=== PATIENT | male | born 1965 | race Caucasian/White ===

== ENCOUNTER 2019-08-01 14:53 | Emergency (ER) | payer OTHER ==
[~2019-08-01] VITALS: Ht 182.9 cm; Wt 67.8 kg
[2019-08-01] MEDS ORDERED: HYDR-4517 PO (15:17)
[2019-08-01] MEDS ORDERED: SERT-141 PO (15:17)
[2019-08-01] MEDS ORDERED: ATEN25TA PO (15:17)
[2019-08-01] MEDS ORDERED: FENT1DIS14 TOP (15:17)
[2019-08-01] MEDS ORDERED: SANC3.1D TOP (15:17)
[2019-08-01] MEDS ORDERED: PANT40TA3 PO (15:17)
[2019-08-01] MEDS ORDERED: KETOROLAC 30 MG/ML VIAL (J1885) IV ONE (15:30)
[2019-08-01] MEDS ORDERED: NS 1,000 ML IV ONE (15:30)
[2019-08-01] MEDS ORDERED: PANTOPRAZOLE 40MG INJ (PROTONIX) (C9113) IV ONE (15:30)
[2019-08-01] MEDS ORDERED: PROMETHAZINE INJ 25 MG/ML VIAL (J2550) IV ONE (15:30)
[2019-08-01 15:43] LABS: BASO # 0.1 10^3/uL (0.0-0.2); BASO % 0.8 % (0.0-1.0); EOS # 0.1 10^3/uL (0.0-0.5); EOS % 0.7 % (0.0-3.0); HEMOGLOBIN 11.9 g/dl (13.5-17.5); LYMPH # 0.8 10^3/uL (1.5-5.0); LYMPH % 6.9 % (24.0-44.0); MEAN CORPUSCULAR HEMOGLOBIN 27.6 pg (27.0-33.0); MEAN CORPUSCULAR HGB CONC 29.8 g/dl (32.0-36.5); MEAN CORPUSCULAR VOLUME 92.8 fl (80.0-96.0); MONO # 0.8 10^3/uL (0.0-0.8); MONO % 6.3 % (0.0-5.0); NEUTROPHILS # 9.7 10^3/uL (1.5-8.5); NEUTROPHILS % 80.9 % (36.0-66.0); PLATELET COUNT, AUTOMATED 336 10^3/uL (150-450); RED BLOOD COUNT 4.31 10^6/uL (4.30-6.10)
[2019-08-01 15:59] LABS: INR 1.03; PROTHROMBIN TIME 13.2 SECONDS (11.8-14.0)
[2019-08-01] MEDS ORDERED: MORPHINE 4 MG/ML 1ML VIAL/SYRINGE (J2270) IV ONE (16:15)
[2019-08-01 16:16] LABS: ALBUMIN 2.8 GM/DL (3.2-5.2); ALT/SGPT 20 U/L (12-78); BILIRUBIN,DIRECT < 0.1 MG/DL (0.0-0.2); BILIRUBIN,TOTAL 0.2 MG/DL (0.2-1.0); BLOOD UREA NITROGEN 16 MG/DL (7-18); CALCIUM LEVEL 8.7 MG/DL (8.5-10.1); CARBON DIOXIDE LEVEL 30 MEQ/L (21-32); CHLORIDE LEVEL 103 MEQ/L (98-107); CREATININE FOR GFR 0.59 MG/DL (0.70-1.30); GLOMERULAR FILTRATION RATE > 60.0 (>56); GLUCOSE, FASTING 133 MG/DL (70-100); LIPASE 40 U/L (73-393); POTASSIUM SERUM 4.2 MEQ/L (3.5-5.1); SODIUM LEVEL 138 MEQ/L (136-145); TOTAL PROTEIN 6.1 GM/DL (6.4-8.2)
[2019-08-01] MEDS ORDERED: ISOVUE-370 76% 100ML VIAL (Q9967) As Ordered ONE (16:33)
--- NOTE | 2019-08-01 18:04 | REPVR ---
PROCEDURE INFORMATION: Exam: CT Abdomen And Pelvis With Contrast Exam date and time: 08/01/2019 5:20 PM Age: 53 years old Clinical indication: Abdominal pain; Generalized; Additional info: Abd pain TECHNIQUE: Imaging protocol: Computed tomography of the abdomen and pelvis with intravenous contrast. Radiation optimization: All CT scans at this facility use at least one of these dose optimization techniques: automated exposure control; mA and/or kV adjustment per patient size (includes targeted exams where dose is matched to clinical indication); or iterative reconstruction. Contrast material: ISOVUE 370; Contrast volume: 100 ml; Contrast route: IV; COMPARISON: No relevant prior studies available. FINDINGS: Lungs: Clear appearing lungs. Liver: Irregular enhancement of the left lobe of the liver may be secondary to irregular fatty infiltration. Metastasis to the left lobe of the liver is another consideration. Gallbladder and bile ducts: Normal gallbladder. Normal common bile duct. Pancreas: Normal pancreas. Punctate calcifications throughout the pancreas. Spleen: Normal spleen. Adrenals: Normal adrenal glands. Kidneys and ureters: There is opacification of both kidneys. Punctate stone lower pole left kidney. There is no evidence of hydronephrosis. Stomach and bowel: There is a metallic stent within the lower esophagus and extending into the upper stomach. There is a large amount of secretions and food material within the stomach and a large air-fluid level. There is around 5 cm mass contiguous with the posterior rectum and extending to the anus. Appendix: Normal appearing appendix. Intraperitoneal space: There is no evidence of pneumoperitoneum. There is no evidence of fluid within the abdomen or pelvis. Vasculature: There is opacification of the aorta. There is opacification of the SMV and the SMA. There is calcification of the aorta consistent with atherosclerotic changes. Lymph nodes: There is lymphadenopathy along the course of the aorta. There is a 2 cm retrocrural lymph node. The lymphadenopathy along the aorta measures 1 cm to as large as 3 cm. There is also soft tissue density/lymphadenopathy encasing the celiac artery and inseparable from the junction of the stomach and liver margin. Lymphadenopathy contiguous with the inferior vena cava and dahlia of the diaphragm. Lymphadenopathy encases the renal arteries. Bladder: Normal urinary bladder. Reproductive: Moderate enlargement of the prostate. Bones/joints: There is kyphosis of the lower thoracic spine and also osteophyte formation of the thoracic and lumbar spine. There is narrowing of the central canal secondary to the kyphosis and also posterior osteophyte formation lower thoracic region IMPRESSION: 1. There is a prominent stent from the mid esophagus to the upper stomach. There is diffuse thickening of the esophagus. Extensive soft tissue and lymphadenopathy encasing the celiac artery and inseparable from the diaphragm and upper stomach. This is consistent with neoplasm and lymphadenopathy. 2. Extensive lymphadenopathy following the aorta and within the diaphragmatic dahlia on the right. 3. 5 cm oval mass between the rectum and the left levator ani muscles. This mass is inseparable from the muscular groups and consistent with neoplasm. Electronically signed by: Cruz Tolentino On 08/01/2019 18:06:23 PM
[2019-08-01] MEDS ORDERED: SIME180C PO (18:37)
[2019-08-01 18:55] VITALS: BP 100/63
[2019-08-02] MEDS ORDERED: LIDO2.5C15 TOP (16:37)
[2019-08-05] MEDS ORDERED: SIME180C PO (13:12)
== END 2019-08-01 18:58 | disposition home or self-care (01) ==
LOC: M ED 14:53
DX: R10.9 Unspecified abdominal pain (principal); R59.9 Enlarged lymph nodes, unspecified; R93.2 Abnormal findings on diagnostic imaging of liver and biliary tract; R19.00 Intra-abdominal and pelvic swelling, mass and lump, unspecified site; Z96.89 Presence of other specified functional implants; C15.9 Malignant neoplasm of esophagus, unspecified; G89.29 Other chronic pain; F17.200 Nicotine dependence, unspecified, uncomplicated; Z79.899 Other long term (current) drug therapy; Z88.6 Allergy status to analgesic agent
CPT/HCPCS: 74177; 80048; 80076; 81001; 83690; 85025; 85610; 96361; 96374; 96375; 99284; C9113; J1885; J2270; Q9967

== ENCOUNTER 2019-08-02 12:07 | Observation (INO) | payer OTHER ==
[~2019-08-02] VITALS: Ht 182.9 cm; Wt 69.5 kg
[~2019-08-02 12:07] MED LIST: ATEN25TA PO; FENT1DIS14 TOP; HYDR-4517 PO; PANT40TA3 PO; SANC3.1D TOP; SERT-141 PO; SIME180C PO
[2019-08-02 13:20] LABS: BASO # 0.1 10^3/uL (0.0-0.2); BASO % 0.5 % (0.0-1.0); EOS # 0.1 10^3/uL (0.0-0.5); EOS % 0.5 % (0.0-3.0); HEMATOCRIT 38.7 % (42.0-52.0); HEMOGLOBIN 11.5 g/dl (13.5-17.5); LYMPH # 0.7 10^3/uL (1.5-5.0); LYMPH % 5.8 % (24.0-44.0); MEAN CORPUSCULAR HEMOGLOBIN 27.9 pg (27.0-33.0); MEAN CORPUSCULAR HGB CONC 29.7 g/dl (32.0-36.5); MEAN CORPUSCULAR VOLUME 93.9 fl (80.0-96.0); MONO % 7.8 % (0.0-5.0); NEUTROPHILS # 10.4 10^3/uL (1.5-8.5); NEUTROPHILS % 80.8 % (36.0-66.0); PLATELET COUNT, AUTOMATED 314 10^3/uL (150-450); RED BLOOD COUNT 4.12 10^6/uL (4.30-6.10); WHITE BLOOD COUNT 12.9 10^3/uL (4.0-10.0)
[2019-08-02] MEDS ORDERED: METOCLOPRAMIDE INJ 10MG/2ML VIAL (J2765) IV ONE (13:30)
[2019-08-02] MEDS ORDERED: NS 1,000 ML IV ONE (13:30)
[2019-08-02] MEDS: MORPHINE 4 MG/ML 1ML VIAL/SYRINGE (J2270) IV PRN ×3 (13:37→18:46)
[2019-08-02 13:39] LABS: INR 1.03; PROTHROMBIN TIME 13.2 SECONDS (11.8-14.0)
[2019-08-02 13:40] LABS: PARTIAL THROMBOPLASTIN TIME 30.5 SECONDS (25.0-38.4)
[2019-08-02 13:46] LABS: ALBUMIN 2.8 GM/DL (3.2-5.2); ALT/SGPT 18 U/L (12-78); AMYLASE 23 U/L (25-115); BILIRUBIN,DIRECT 0.1 MG/DL (0.0-0.2); BILIRUBIN,TOTAL 0.2 MG/DL (0.2-1.0); BLOOD UREA NITROGEN 16 MG/DL (7-18); CALCIUM LEVEL 8.5 MG/DL (8.5-10.1); CARBON DIOXIDE LEVEL 29 MEQ/L (21-32); CHLORIDE LEVEL 108 MEQ/L (98-107); CREATININE FOR GFR 0.49 MG/DL (0.70-1.30); GLOMERULAR FILTRATION RATE > 60.0 (>56); GLUCOSE, FASTING 81 MG/DL (70-100); IRON (FE) 26 UG/DL (65-175); LIPASE 59 U/L (73-393); PERCENT SATURATION 10.2 % (19.7-50.0); POTASSIUM SERUM 4.1 MEQ/L (3.5-5.1); SODIUM LEVEL 142 MEQ/L (136-145); TOTAL IRON BINDING CAPACITY 254 UG/DL (250-450); TOTAL PROTEIN 5.9 GM/DL (6.4-8.2)
[2019-08-02] MEDS ORDERED: MORPHINE 4 MG/ML 1ML VIAL/SYRINGE (J2270) IV ONE (16:00)
[2019-08-02] MEDS ORDERED: LIDO2.5C15 TOP (16:37)
[2019-08-02] MEDS ORDERED: ACETAMINOPHEN TAB 650MG DOSE (2X325MG) PO PRN (17:00)
[2019-08-02] MEDS ORDERED: ONDANSETRON 4MG/2ML VIAL (J2405) IV PRN (17:00)
[2019-08-02] MEDS ORDERED: MAALOX 30 ML SUSP *UDC PO PRN (17:00)
[2019-08-02] MEDS ORDERED: MOM 30ML SUSPENSION UDC PO PRN (17:00)
--- NOTE | 2019-08-02 17:58 | HPE ---
DATE OF ADMISSION: 08/02/2019 TIME: 04:30 p.m. CHIEF COMPLAINT: Abdominal pain. HISTORY OF PRESENT ILLNESS: Mr. Fuller is a 53-year-old gentleman who unfortunately has a history of esophageal carcinoma. He is status post esophageal stenting in the past times two. He is presently on Keytruda immunomodulation therapy which he gets every three weeks. His last dose was approximately four weeks ago. The patient presents to the hospital today for the second time in two days for intractable abdominal pain. He was last seen at [facility] Emergency Room yesterday on 08/01/2019. At that time, he underwent a CT scan of his abdomen and pelvis which showed that in addition to his chronic esophageal carcinoma with associated periaortic lymphadenopathy he also had a rectal mass. His pain was controlled in the emergency room and he was subsequently discharged home. He presented today with complaints of 10/10 sharp abdominal pain with intractable nausea and inability to eat anything at home. Thus far in the emergency room (ER), his laboratories have been relatively stable. Repeat lipase was found to be normal. He has a mildly elevated white count of 12.9, normal coagulations as well as electrolytes. He has not undergone any further imaging as he had a CT scan done yesterday. His ER course has consisted of receiving morphine 4 mg IV times three as well as Reglan and a liter of normal saline without significant improvement in his symptoms. Because of his uncontrolled pain, he will be admitted to the hospitalist service for further treatment and evaluation. He presently sees Dr. Carmona at the [facility] and was recently placed on fentanyl 25 mcg every 72 hours several days ago. He also takes [place] 10/325 mg about twice a day. Despite these medications, he has no relief whatsoever. ALLERGIES: His allergies are no known drug allergies. MEDICATIONS: His current home medications are the following: - atenolol 25 mg daily - fentanyl 25 mcg every 72 hours - Sancuso transdermal patch weekly applied on Saturdays - Seminole one tablet every 12 hours as needed for pain - lidocaine prilocaine cream - Protonix 40 mg twice a day - sertraline 50 mg in the evening PAST MEDICAL HISTORY: Notable for stage III esophageal carcinoma diagnosed in June of 2018. He has undergone radiation as well as chemotherapy. He is currently on Keytruda every three weeks. He is status post esophageal stent in October which subsequently occluded and needed to be removed and replaced in April of 2019. He has history of a Mediport placement in his anterior chest wall. He has a history of nonobstructing left kidney stone. He has history of hypertension. He has history of severe protein calorie malnutrition as well as chronic malignant pain syndrome. H PAST SURGICAL HISTORY: Notable for percutaneous endoscopic gastrostomy (PEG) tube placement in July of 2018 with subsequent explantation in December of 2018 secondary to balloon rupture and not frequent use. He has a history of exploratory laparotomy. SOCIAL HISTORY: The patient is , resides at home with his . He still smokes about less than a pack per day. He does not use alcohol or drugs. He lists himself as a full code. His is his surrogate medical decision maker. FAMILY HISTORY: Notable for his father who from the complications of prostate as well as bladder cancer. Mother when he was age 13 from a pulmonary embolism. REVIEW OF SYSTEMS: Positive for chronic malignant abdominal pain syndrome as well as greater than 25-pound weight loss since February of 2019 in addition to constipation and diarrhea at times. He denies having any hematemesis, melena, or hematochezia. I did inform him that the CAT scan did show that he has a new rectal mass. He was unaware that he had any lesions in that area. RELEVANT LABORATORY DATA: Sodium is 142, potassium 4.1, chloride 108, bicarbonate 29, anion gap is 5, BUN is 16, creatinine 0.49, glucose 81, calcium is 8.5, iron is 26, TIBC is 254, total bilirubin 0.2, direct bilirubin 0.1, AST is 12, ALT is 18, alkaline phosphatase is 89, lipase is 69, amylase is 23, INR is 1.03, PT is 13.2, PTT is 30.5. White count is 12.9, hemoglobin 11.5, hematocrit 38.7, and platelet count is 314,000. CT of the abdomen and pelvis done on 08/01/2019 in brief summary indicated the following: There is a prominent stent from the mid esophagus to the upper stomach. There is diffuse thickening of the esophagus, extensive soft tissue lymphadenopathy encasing the celiac artery and inseparable from the diaphragm and upper stomach. This is consistent with neoplasm and lymphadenopathy. Extensive lymphadenopathy involving the aortic and within the diaphragmatic dahlia on the right. A 5 cm oval mass between the rectum and the left levator ani muscles. This mass is inseparable from the muscular groups and consistent with neoplasm. PHYSICAL EXAMINATION: Mr. Fuller's temperature is 98.4. His pulse is 92 and regular, respirations are 18, blood pressure is 108/78, oxygen saturation on room air is 100%. In general, Mr. Fuller is in moderate to severe pain associated with his abdominal pain. He is complaining 10/10 pain. He is a cachectic-appearing gentleman who is not exhibiting any breathing difficulties. His skin is warm to touch. No visible rash, bruising, or jaundicing. His head is atraumatic. He has his eyeglasses in place. He is not exhibiting any scleral icterus or conjunctival pallor. Oropharynx is clear. Oral mucosa is moist. His neck is supple. No palpable lymphadenopathy. He has kyphosis. Lungs sounds are appreciated bilaterally. He has symmetrical chest wall expansion. Heart is S1, S2. No audible murmurs or gallops. Abdomen is soft, scaphoid in appearance. It is tender to touch. It is without any distension and no palpable masses. His extremities are without any cyanosis, clubbing or edema. Capillary refill is less than five seconds. He has palpable dorsalis pedis pulses. IMPRESSION: 1. Intractable abdominal pain secondary to chronic malignant abdominal pain syndrome. The patient will be admitted to an observation status. I am going to consult palliative care to help in assisting with his pain control. I am going to increase his fentanyl from 25 mcg to 50 mcg. In addition, we will add IV morphine every four hours for breakthrough pain. Can consider resuming Seminole orally if his pain is improved with the fentanyl. Can consider also if he is a candidate for maybe a celiac plexus block to deal with his pain if that is possible, which from viewing his CAT scan is unlikely with the lymphadenopathy and tumor encasing that area. 2. Severe protein calorie malnutrition. The patient will have dietary to see him to make recommendations for him. 3. Hypertension. We will resume his atenolol. 4. Anemia of chronic disease, likely associated with his malignancy. We will monitor his complete blood count (CBC) daily and transfuse for a hemoglobin less than 7 or symptomatic anemia. 5. Rectal mass which appears to be a new finding on CAT scan done yesterday in the emergency department (ED). We will get in touch with his oncologist in the morning. I will leave it to his day team hospitalist who will be assuming care from me tomorrow to contact their office and obtain records and discuss that finding with his oncologist. The patient, at this point, is fed up with his oncology group in [place] and is willing to switch to oncology here. Therefore, an appointment should be made for him prior to discharge. 6. The patient will be placed on sequential compression devices (SCDs) as well as Lovenox for deep vein thrombosis (DVT) prophylaxis.
[2019-08-02] MEDS: fentaNYL 50 MCG/HR PATCH TOP ONE ×2 (21:02→21:08)
[2019-08-02] MEDS: DOCUSATE SODIUM 100 MG CAP PO SCH (21:03)
[2019-08-02] MEDS: SERTRALINE HCL 50 MG TAB PO SCH (21:03)
[2019-08-02] MEDS: PANTOPRAZOLE 40MG TAB (PROTONIX) PO SCH (21:03)
[2019-08-02 22:00] VITALS: BP 105/66
[2019-08-03 02:00] VITALS: BP 123/71
[2019-08-03 06:00] VITALS: BP 123/71
[2019-08-03 06:59] LABS: HEMATOCRIT 36.5 % (42.0-52.0); HEMOGLOBIN 10.8 g/dl (13.5-17.5); MEAN CORPUSCULAR HEMOGLOBIN 27.7 pg (27.0-33.0); MEAN CORPUSCULAR HGB CONC 29.6 g/dl (32.0-36.5); MEAN CORPUSCULAR VOLUME 93.6 fl (80.0-96.0); PLATELET COUNT, AUTOMATED 275 10^3/uL (150-450); WHITE BLOOD COUNT 15.7 10^3/uL (4.0-10.0)
[2019-08-03 07:30] LABS: ALBUMIN 2.5 GM/DL (3.2-5.2); ALT/SGPT 17 U/L (12-78); BILIRUBIN,TOTAL 0.2 MG/DL (0.2-1.0); BLOOD UREA NITROGEN 9 MG/DL (7-18); CARBON DIOXIDE LEVEL 29 MEQ/L (21-32); CHLORIDE LEVEL 105 MEQ/L (98-107); GLOMERULAR FILTRATION RATE > 60.0 (>56); GLUCOSE, FASTING 125 MG/DL (70-100); POTASSIUM SERUM 4.1 MEQ/L (3.5-5.1); SODIUM LEVEL 139 MEQ/L (136-145); TOTAL PROTEIN 6.3 GM/DL (6.4-8.2)
[2019-08-03] MEDS: DOCUSATE SODIUM 100 MG CAP PO SCH ×2 (09:00→21:58)
[2019-08-03] MEDS: ENOXAPARIN 40 MG/0.4 ML SYRINGE (J1650) SC SCH (09:00)
[2019-08-03] MEDS: PANTOPRAZOLE 40MG TAB (PROTONIX) PO SCH ×2 (09:03→21:58)
[2019-08-03] MEDS: atenoloL 25 MG TAB PO SCH (09:03)
--- NOTE | 2019-08-03 13:01 | IPNPDOC ---
Subjective Date Seen The patient was seen on 08/03/19. Subjective Chief Complaint/HPI Patient pain has much resolved with Duragesic but he still wants to see [facility] oncology was discharged as per patient, he is unable to ambulate more than bathroom and is extremely tired and fatigued and he is unable to go home secondary to his mobility status General: Denies: ROS Unobtainable, Chills, Night Sweats, Fatigue, Malaise, Normal Appetite, Other Symptoms Constitutional: Denies: Chills, Fever, Malaise, Night Sweats, Weakness, Fatigue, Weight Loss, Lethargy, Other Skin: Denies: Rash, Lesions, Jaundice, Bruising, Itching, Dry, Breakdown, Nail Changes, Other Pulmonary: Denies: Dyspnea, Cough, Pleuritic Chest Pain, Other Symptoms Cardiovascular: Denies: Chest Pain, Palpitations, Orthopnea, Paroxysmal Noc. Dyspnea, Edema, Lt Headedness, Other Symptoms Gastrointestinal: Denies: Nausea, Vomiting, Abdominal Pain, Diarrhea, Constipation, Melena, Hematochezia, Other Symptoms Musculoskeletal: Denies: Neck Pain, Back Pain, Shoulder Pain, Arm Pain, Hand Pain, Leg Pain, Foot Pain, Joint Pain, Muscle Pain, Spasms, Other Symptoms Neurological: Denies: Weakness, Numbness, Incoordination, Change in speech, Confusion, Seizures, Other Symptoms Objective Physical Examination General Exam: Positive: Alert Eye Exam: Positive: PERRLA, Conjunctiva & lids normal ENT Exam: Positive: Atraumatic, Mucous membr. moist/pink Chest Exam: Positive: Clear to auscultation, Normal air movement Heart Exam: Positive: Rate Normal, Normal S1, Normal S2 Abdomen Exam: Positive: Normal bowel sounds, Soft, Tenderness Extremity Exam: Positive: Normal pulses Skin Exam: Positive: Nl turgor and temperature Neuro Exam: Positive: Strength at 5/5 X4 ext, Cranial Nerves 3-12 NL Assessment /Plan Problems (1) Intractable abdominal pain Status: Acute Problem Text: Secondary to advanced carcinoma of esophagus Patient received the chemotherapy at [facility], but he receives to change to [facility] oncology I tried to explain patient about his advanced stage of cancer and possible poor prognosis, but patient is insistent that he is salvageable So far is responding very well to Duragesic but he unable to ambulate more than bed to bathroom and as per patient, his is unable to take care of him at home Will speak with the social work and case management regarding possibly placing him him in the rehabilitation (2) Carcinoma of esophagus Status: Chronic Problem Text: Carcinoma of esophagus status post esophageal stent Patient had received chemotherapy at [facility] Further follow-up outpatient with oncologist of his choice (3) Protein-calorie malnutrition, severe Status: Acute Problem Text: , Most likely secondary to advanced carcinoma and esophageal stent Dietary consult will be called Nutritional supplements as tolerated (4) Rectal mass Status: Acute Problem Text: Rectal mass was explained to patient. He understands very well Further workup will be recommended as an outpatient with oncology Plan/VTE VTE Prophylaxis Ordered?: Yes VS, I&O, 24H, Fishbone Vital Signs/I&O Vital Signs Date Time Temp Pulse Resp B/P (MAP) Pulse Ox O2 Delivery O2 Flow Rate FiO2 08/03/19 09:03 102 130/78 08/03/19 06:00 98.3 18 98 Room Air l I&O- Last 24 Hours up to 6 AM 08/03/19 06:00 Intake Total 1450 ml Output Total 0 ml Balance 1450 ml Laboratory Data 24H LABS Laboratory Tests 2 08/02/19 13:05: Immature Granulocyte % (Auto) 4.6H, Neutrophils (%) (Auto) 80.8H, Lymphocytes (%) (Auto) 5.8L, Monocytes (%) (Auto) 7.8H, Eosinophils (%) (Auto) 0.5, Basophils (%) (Auto) 0.5, Neutrophils # (Auto) 10.4H, Lymphocytes # (Auto) 0.7L, Monocytes # (Auto) 1.0H, Eosinophils # (Auto) 0.1, Basophils # (Auto) 0.1, Nucleated Red Blood Cells % (auto) 0.0, Prothrombin Time 13.2, Prothromb Time International Ratio 1.03, Activated Partial Thromboplast Time 30.5, Anion Gap 5L, Glomerular Filtration Rate > 60.0, Calcium Level 8.5, Iron Level 26L, Total Iron Binding Capacity 254, Transferrin % Saturation 10.2L, Total Bilirubin 0.2, Direct Bilirubin 0.1, Aspartate Amino Transf (AST/SGOT) 12, Alanine Aminotransferase (ALT/SGPT) 18, Alkaline Phosphatase 89, Total Protein 5.9L, Albumin 2.8L, Albumin/Globulin Ratio 0.90L, Amylase Level 23L, Lipase 59L 08/03/19 06:44: Nucleated Red Blood Cells % (auto) 0.0, Anion Gap 5L, Glomerular Filtration Rate > 60.0, Calcium Level 8.0L, Total Bilirubin 0.2, Aspartate Amino Transf (AST/SGOT) 11, Alanine Aminotransferase (ALT/SGPT) 17, Alkaline Phosphatase 86, Total Protein 6.3L, Albumin 2.5L, Albumin/Globulin Ratio 0.66L CBC/BMP Laboratory Tests 08/02/19 13:05 08/03/19 06:44 WATSON VIVEROS MD Aug 03, 2019 13:01
[2019-08-03] MEDS: MORPHINE 4 MG/ML 1ML VIAL/SYRINGE (J2270) IV PRN ×2 (13:13→18:27)
[2019-08-03 14:07] VITALS: BP 102/58
[2019-08-03] MEDS: KETOROLAC 30 MG/ML VIAL (J1885) IV PRN (19:32)
[2019-08-03 20:29] VITALS: BP 100/57
[2019-08-03] MEDS: SERTRALINE HCL 50 MG TAB PO SCH (21:58)
[2019-08-04 02:00] VITALS: BP 106/60
[2019-08-04 05:23] VITALS: BP 114/72
[2019-08-04 06:35] LABS: BASO # 0.1 10^3/uL (0.0-0.2); BASO % 0.7 % (0.0-1.0); EOS # 0.1 10^3/uL (0.0-0.5); EOS % 0.8 % (0.0-3.0); HEMATOCRIT 36.5 % (42.0-52.0); HEMOGLOBIN 10.7 g/dl (13.5-17.5); LYMPH # 0.6 10^3/uL (1.5-5.0); MEAN CORPUSCULAR HEMOGLOBIN 27.6 pg (27.0-33.0); MEAN CORPUSCULAR HGB CONC 29.3 g/dl (32.0-36.5); MEAN CORPUSCULAR VOLUME 94.3 fl (80.0-96.0); MONO # 1.2 10^3/uL (0.0-0.8); MONO % 9.2 % (0.0-5.0); NEUTROPHILS # 10.2 10^3/uL (1.5-8.5); NEUTROPHILS % 79.7 % (36.0-66.0); PLATELET COUNT, AUTOMATED 283 10^3/uL (150-450); RED BLOOD COUNT 3.87 10^6/uL (4.30-6.10); WHITE BLOOD COUNT 12.8 10^3/uL (4.0-10.0)
[2019-08-04 06:58] LABS: ALBUMIN 2.5 GM/DL (3.2-5.2); ALT/SGPT 18 U/L (12-78); BILIRUBIN,TOTAL 0.2 MG/DL (0.2-1.0); BLOOD UREA NITROGEN 12 MG/DL (7-18); CALCIUM LEVEL 8.1 MG/DL (8.5-10.1); CARBON DIOXIDE LEVEL 25 MEQ/L (21-32); CHLORIDE LEVEL 108 MEQ/L (98-107); GLOMERULAR FILTRATION RATE > 60.0 (>56); GLUCOSE, FASTING 99 MG/DL (70-100); POTASSIUM SERUM 4.2 MEQ/L (3.5-5.1); SODIUM LEVEL 139 MEQ/L (136-145)
[2019-08-04 08:18] VITALS: BP 114/72
[2019-08-04] MEDS: PANTOPRAZOLE 40MG TAB (PROTONIX) PO SCH (08:18)
[2019-08-04] MEDS: DOCUSATE SODIUM 100 MG CAP PO SCH (08:18)
[2019-08-04] MEDS: KETOROLAC 30 MG/ML VIAL (J1885) IV PRN ×2 (08:18→15:14)
[2019-08-04] MEDS: atenoloL 25 MG TAB PO SCH (08:18)
[2019-08-04] MEDS: ENOXAPARIN 40 MG/0.4 ML SYRINGE (J1650) SC SCH (08:19)
[2019-08-04] MEDS ORDERED: DURA50DI2 TOP (09:49)
--- NOTE | 2019-08-04 13:25 | DS.PDOC ---
Discharge Summary General Date of Admission Aug 02, 2019 at 12:08 Date of Discharge 08/04/19 Discharge Summary PROCEDURES PERFORMED DURING STAY: None. ADMITTING DIAGNOSES: 1. Intractable abdominal pain, carcinoma of esophagus. DISCHARGE DIAGNOSES: 1. Intractable abdominal pain, carcinoma of esophagus, colon mass. COMPLICATIONS/CHIEF COMPLAINT: Intractable Abd Pain Neoplastic Disease. HISTORY OF PRESENT ILLNESS: Mr. Fuller is a 53-year-old gentleman who unfortunately has a history of esophageal carcinoma. He is status post esophageal stenting in the past times two. He is presently on Keytruda immunomodulation therapy which he gets every three weeks. His last dose was approximately four weeks ago. The patient presents to the hospital today for the second time in two days for intractable abdominal pain. He was last seen at [facility] Emergency Room yesterday on 08/01/2019. At that time, he underwent a CT scan of his abdomen and pelvis which showed that in addition to his chronic esophageal carcinoma with associated periaortic lymphadenopathy he also had a rectal mass. His pain was controlled in the emergency room and he was subsequently discharged home. He presented today with complaints of 10/10 sharp abdominal pain with intractable nausea and inability to eat anything at home. Thus far in the emergency room (ER), his laboratories have been relatively stable. Repeat lipase was found to be normal. He has a mildly elevated white count of 12.9, normal coagulations as well as electrolytes. He has not undergone any further imaging as he had a CT scan done yesterday. His ER course has consisted of receiving morphine 4 mg IV times three as well as Reglan and a liter of normal saline without significant improvement in his symptoms. Because of his uncontrolled pain, he will be admitted to the hospitalist service for further treatment and evaluation. He presently sees Dr. Carmona at the [facility] and was recently placed on fentanyl 25 mcg every 72 hours several days ago. He also takes [place] 10/325 mg about twice a day. Despite these medications, he has no relief whatsoever. . HOSPITAL COURSE: Patient was admitted with intractable abdominal pain. His Duragesic was increased to 50 g with some relief and was continued on all his home medications. Patient's CT of the abdomen was done which showed a new colonic mass Lawand[place]undra does not wish to follow-up with [facility] marked [place] has been referred to Dr. Buckner at [facility]. He marked clinic. Patient is clinically stable he'll be discharged today to follow with [facility]. He marked and pain management as an outpatient for further long-term outpatient care. DISCHARGE MEDICATIONS: Please see below. ALLERGIES: Please see below. PHYSICAL EXAMINATION ON DISCHARGE: VITAL SIGNS: Please see below. GENERAL: Within normal limits HEENT: [PERRLA, extraocular muscles intact Neck supple CARDIOVASCULAR EXAMINATION: S1, S2, regular RESPIRATORY EXAMINATION: Clear to A&P ABDOMINAL EXAMINATION: , Soft, nontender, bowel sound present EXTREMITIES: No clubbing, cyanosis, edema SKIN: Normal NEUROLOGICAL EXAMINATION: . No focal motor sensory deficit PSYCHIATRIC EXAMINATION: Normal LABORATORY DATA: Please see below. IMAGING: CT abdomen and pelvis:1. There is a prominent stent from the mid esophagus to the upper stomach. There is diffuse thickening of the esophagus. Extensive soft tissue and lymphadenopathy encasing the celiac artery and inseparable from the diaphragm and upper stomach. This is consistent with neoplasm and lymphadenopathy. 2. Extensive lymphadenopathy following the aorta and within the diaphragmatic dahlia on the right. 3. 5 cm oval mass between the rectum and the left levator ani muscles. This mass is inseparable from the muscular groups and consistent with neoplasm. PROGNOSIS: ACTIVITY: As tolerated. DIET: As tolerated DISCHARGE PLAN: As tolerated DISPOSITION: . Home DISCHARGE INSTRUCTIONS: 1. As per discharge instructions. ITEMS TO FOLLOWUP ON ON OUTPATIENT: 1. Follow with Dr. amor as an outpatient and also [facility] pain management clinic. DISCHARGE CONDITION: Stable. TIME SPENT ON DISCHARGE: 40 minutes. Vital Signs/I&Os Vital Signs Date Time Temp Pulse Resp B/P (MAP) Pulse Ox O2 Delivery O2 Flow Rate FiO2 08/04/19 08:18 95 114/72 08/04/19 05:23 98.5 18 98 Room Air I&O- Last 24 Hours up to 6 AM 08/04/19 06:00 Intake Total 1720 ml Output Total 0 ml Balance 1720 ml Laboratory Data Labs 24H Laboratory Tests 2 08/04/19 06:09: Immature Granulocyte % (Auto) 4.6H, Neutrophils (%) (Auto) 79.7H, Lymphocytes (%) (Auto) 5.0L, Monocytes (%) (Auto) 9.2H, Eosinophils (%) (Auto) 0.8, Basophils (%) (Auto) 0.7, Neutrophils # (Auto) 10.2H, Lymphocytes # (Auto) 0.6L, Monocytes # (Auto) 1.2H, Eosinophils # (Auto) 0.1, Basophils # (Auto) 0.1, Nucleated Red Blood Cells % (auto) 0.0, Anion Gap 6L, Glomerular Filtration Rate > 60.0, Calcium Level 8.1L, Total Bilirubin 0.2, Aspartate Amino Transf (AST/SGOT) 13, Alanine Aminotransferase (ALT/SGPT) 18, Alkaline Phosphatase 83, Total Protein 6.0L, Albumin 2.5L, Albumin/Globulin Ratio 0.71L CBC/BMP Laboratory Tests 08/04/19 06:09 Discharge Medications Scheduled Atenolol (Atenolol) 25 Mg Tablet, 25 MG PO DAILY, (Reported) Fentanyl (Duragesic) 50 Mcg Patch.td72, 50 MCG TOP Q72H Granisetron (Sancuso) 3.1 Mg/24 Hr Patch.tdwk, 3.1 MG TOP QWEEK, (Reported) APPLY ON SATURDAYS Lidocaine/Prilocaine (Lidocaine-Prilocaine Cream) 2.5%/2.5% Cream..g., 1 DOSE TOP ASDIRECTED, (Reported) APPLY BEFORE ACCESSING INFUSAPORT Pantoprazole Sodium (Pantoprazole Sodium) 40 Mg Tablet.dr, 40 MG PO BID, (Reported) Sertraline Hcl (Sertraline HCl) 50 Mg Tablet, 50 MG PO QPM, (Reported) Scheduled PRN Hydrocodone/Acetaminophen (Hydrocodone-Acetamin 10-325 mg) 1 Each Tablet, 1 TAB PO BID PRN for PAIN, (Reported) Allergies Coded Allergies: No Known Allergies (Unverified , 08/01/19) WATSON VIVEROS MD Aug 04, 2019 13:25
[2019-08-04] MEDS ORDERED: KETO10TAB PO (14:28)
[2019-08-04 14:39] VITALS: BP 92/53
[2019-08-05] MEDS ORDERED: SIME180C PO (13:12)
[2019-08-05] MEDS ORDERED: MIRA3350 PO (15:17)
[2019-08-05] MEDS ORDERED: FENTANYL REMOVAL DOCUMENTATION MISC XX ONE (18:00)
[2019-08-05] MEDS ORDERED: DURA50DI2 TD (19:35)
[2019-08-05] MEDS ORDERED: FENTANYL REMOVAL DOCUMENTATION MISC XX SCH (21:00)
[2019-08-05] MEDS ORDERED: fentaNYL 50 MCG/HR PATCH TOP SCH (21:00)
== END 2019-08-04 16:30 | disposition home health service (06) ==
LOC: M ED 12:07 → M ED INP 12:08 → UNDOADMOB 16:53 → M ED INP 16:53 → ENRESERV 18:03 → M MS5PR 19:30
PROVIDERS: ADMIT Internal Medicine; ATTEND Internal Medicine
DX: G89.3 Neoplasm related pain (acute) (chronic) (principal); C15.9 Malignant neoplasm of esophagus, unspecified; K62.89 Other specified diseases of anus and rectum; I88.8 Other nonspecific lymphadenitis; D63.0 Anemia in neoplastic disease; I10 Essential (primary) hypertension; Z92.3 Personal history of irradiation; Z92.21 Personal history of antineoplastic chemotherapy; F17.218 Nicotine dependence, cigarettes, with other nicotine-induced disorders; Z79.899 Other long term (current) drug therapy
CPT/HCPCS: 36415; 80048; 80053; 80076; 82150; 83550; 83690; 85025; 85027; 85610; 85730; 96361; 96374; 96375; 96376; 97116; 97161; 97530; 99284; J1885; J2270; J2405; J2765

== ENCOUNTER 2019-08-05 15:02 | Inpatient (IN) | payer OTHER ==
[~2019-08-05] VITALS: Ht 182.9 cm; Wt 68.2 kg
[~2019-08-05 15:02] MED LIST changes: +DURA50DI2 TOP; +EMLA CREAM 5GM (LIDOCAINE/PRILOCAINE) TOP SCH; +GRANISETRON 3.1 MG TOP SCH; +KETO10TAB PO; +LIDO2.5C15 TOP
[2019-08-05] MEDS ORDERED: MIRA3350 PO (15:17)
--- NOTE | 2019-08-05 15:40 | ECGEPIP ---
[facility] - ED Test Date: 2019-08-05 Pat Name: JEREMÍAS STOCKTON Department: Room: - Gender: Male [employer] Assistant: ct : 1965 Requested By: Thu Allen Order Number: [id number] Reading MD: Christiano Reis Measurements Intervals [place] Rate: 81 P: 49 [place]: 171 QRS: 14 QRSD: 89 T: 12 QT: 343 QTc: 399 Interpretive Statements SINUS RHYTHM INDETERMINATE AXIS Inferior Q waves of uncertain significance Baseline artifact Comparison tracing not on file Electronically Signed on 08-05-2019 15:40:07 EST by Christiano Reis
[2019-08-05] MEDS: NS 1,000 ML IV SCH ×3 (15:45→22:13)
[2019-08-05] MEDS ORDERED: MORPHINE 4 MG/ML 1ML VIAL/SYRINGE (J2270) IV ONE ×2 (16:00→18:15)
[2019-08-05] MEDS: GASTROGRAFIN SOLUTION 30ML PO SCH ×2 (16:11→16:51)
[2019-08-05] MEDS ORDERED: ISOVUE-370 76% 100ML VIAL (Q9967) As Ordered ONE (17:39)
--- NOTE | 2019-08-05 18:17 | REPVR ---
PROCEDURE INFORMATION: Exam: CT Abdomen And Pelvis With Contrast Exam date and time: 08/05/2019 3:50 PM Age: 53 years old Clinical indication: Abdominal pain; Generalized; Additional info: Gen abd pain TECHNIQUE: Imaging protocol: Computed tomography of the abdomen and pelvis with intravenous contrast. Radiation optimization: All CT scans at this facility use at least one of these dose optimization techniques: automated exposure control; mA and/or kV adjustment per patient size (includes targeted exams where dose is matched to clinical indication); or iterative reconstruction. Contrast material: ISOVUE 370; Contrast volume: 100 ml; Contrast route: IV; COMPARISON: CT ABD/PEL W/IV CONTRAST ONLY 08/01/2019 4:49 PM FINDINGS: Lungs: Atelectasis left lung base. Heart: Minimal pericardial thickening or fluid. Mediastinum: Stent demonstrated in the distal esophagus and GE junction. Liver: Normal. No mass. Gallbladder and bile ducts: Normal. No calcified stones. No ductal dilation. Pancreas: There is diffuse pancreatic atrophy. Numerous punctate pancreatic calcifications consistent with chronic pancreatitis. Hypoattenuating process demonstrated in the pancreatic neck head and uncinate process region surrounding the proximal left renal vein, abutting the right renal artery and extending into the ksiha hepatis. Overall dimensions measure 5.6 x 3.6 cm on transverse images. Finding could represent inflammation, a low-density retroperitoneal process such is lymphangioma or neoplasm including pancreatic adenocarcinoma and lymphoma. Of note the process has increased in size in comparison to the prior study which is worrisome for malignancy. Spleen: Normal. No splenomegaly. Adrenals: Normal. No mass. Kidneys and ureters: Normal. No hydronephrosis. Stomach and bowel: There is gastric distention with retained secretions. Clinical correlation to exclude gastroparesis or gastric outlet obstruction suggested. Appendix: No evidence of appendicitis. Intraperitoneal space: Small amount of free fluid in the dependent pelvis. Vasculature: The aorta demonstrates mild atherosclerotic calcification. Lymph nodes: There is a retroperitoneal adenopathy measuring up to 2.1 cm in the interaortocaval region and 1.8 cm in the left periaortic region, increasing in size in comparison to the prior study. Lymphadenopathy encases the regional vascular structures. Findings consistent with neoplastic involvement. Bladder: Unremarkable as visualized. Reproductive: The prostate gland demonstrates moderate hyperplasia. Bones/joints: Mild central spinal stenosis L2-L3 and L3-L4. The spine demonstrates mild degenerative changes. Stable sclerotic focus L3. Soft tissues: Small left inguinal hernia. Other findings: 5 x 3.7 cm left posterolateral pararectal mass stable in size in comparison to the prior study. Finding may represent a duplication cyst although other pathology is not excluded. IMPRESSION: 1. There is gastric distention with retained secretions. Clinical correlation to exclude gastroparesis or gastric outlet obstruction suggested. 2. Increasing size of a hypoattenuating process in the region of the pancreatic head, neck and uncinate process region extending into the kisha hepatis and posteriorly into the retroperitoneum. Differential diagnosis includes inflammatory lesions, benign the low-density retroperitoneal processes such as lymphangioma, and neoplasm as described above. 3. There is a retroperitoneal adenopathy measuring up to 2.1 cm in the interaortocaval region and 1.8 cm in the left periaortic region, increasing in size in comparison to the prior study. Lymphadenopathy encases the regional vascular structures. Findings consistent with neoplastic involvement. Taken together with findings in 2. Lymphoma is a primary consideration. 4. Moderate prostatic hyperplasia. 5. 5 x 3.7 cm left posterolateral pararectal mass stable in size in comparison to the prior study. Finding may represent a duplication cyst although other pathology is not excluded. Electronically signed by: Richi Haddad On 08/05/2019 18:16:51 PM
--- NOTE | 2019-08-05 19:14 | HPEPDOC ---
[facility] Medical History & Physical Date of Admission Aug 05, 2019 Date of Service: Aug 05, 2019 Primary Care Physician: Deb Zuñiga Attending Physician: OSCAR HILL MD History and Physical TIME OF SERVICE: 7:40 PM CHIEF COMPLAINT: Sent by oncologist HISTORY OF PRESENT ILLNESS: This is a 53-year-old male who was sent from the oncology clinic by for evaluation of 10 out of 10 mid lower abdominal pain that radiates to his back. He has had this pain for about one year but today it was worse than usual. The pain improved after he received morphine in the ER. He denies having vomiting, diarrhea, fever, or chills. Over the last month his weight has been stable. He was admitted to on August 02 with similar complaints. During this that admission his fentanyl patch was increased from 25g to 50g every 72 hours, while his [place] 10-325/ was continued at the same dose; he was subsequently discharged on Aug 04. 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 -History of nonobstructing left kidney stone. -Chronic Hypertension. -Pilondal cyst ( per patient, this is been mistaken for rectal mass on CT scans in the past) -Protein calorie malnutrition SOCIAL HISTORY: Continues to smoke FAMILY HISTORY: His father had colon cancer and hypertension. One of his brothers was born with a single kidney, which failed unfortunately ended up with hepatitis as a result of blood transfusion ALLERGIES: Please see below. HOME MEDICATIONS: Please see below. PHYSICAL EXAMINATION: VITAL SIGNS: Please see below. GEN: Slim build/ well developed/ NAD INTEGUMENT: not flushed/ not jaundice / he has a chemo port at the right upper chest HEENT: NCAT / lips acyanotic /mucus membranes moist and pink CVS: RRR/NMRG/radial pulses intact LUNGS: able to speak full sentences without stopping to take a breath / no coughing / lungs are clear to auscultation bilaterally on room air ABDOMEN: Contour (flat) /soft & not tender with palpation MSK/EXTREMITIES: range of motion intact in all 4 extremities NEURO: CN 2-12 are grossly intact / speech is not dysarthric PSYCH: alert and oriented to person place and time/ able to understand and follow all commands LABORATORY DATA: See below. IMAGING: CT of the abdomen and pelvis " IMPRESSION: 1. There is gastric distention with retained secretions. Clinical correlation to exclude gastroparesis or gastric outlet obstruction suggested. 2. Increasing size of a hypoattenuating process in the region of the pancreatic head, neck and uncinate process region extending into the kisha hepatis and posteriorly into the retroperitoneum. Differential diagnosis includes inflammatory lesions, benign the low-density retroperitoneal processes such as lymphangioma, and neoplasm as described above. 3. There is a retroperitoneal adenopathy measuring up to 2.1 cm in the interaortocaval region and 1.8 cm in the left periaortic region, increasing in size in comparison to the prior study. Lymphadenopathy encases the regional vascular structures. Findings consistent with neoplastic involvement. Taken together with findings in 2. Lymphoma is a primary consideration. 4. Moderate prostatic hyperplasia. 5. 5 x 3.7 cm left posterolateral pararectal mass stable in size in comparison to the prior study. Finding may represent a duplication cyst although other pathology is not excluded. " MICROBIOLOGY: Please see below. ASSESSMENT: Mr. Fuller is a 68-year-old male with a history of stage III esophageal cancer, and HTN who is admitted for evaluation of abdominal pain. PLAN: 1. Abdominal pain I suspect this may be related to the pancreatic lesion or due to another process such as extension of the esophageal/stomach cancer Plan: Admit to medical floor/follow-up with Dr. Calix in the morning /continue with current doses of fentanyl & [place] 10-352 with morphine PRN, the daytime team may consider consulting infantry operations specialist to help up-titrate his pain meds / Zofran PPI / will give a trail dose of Metoclopramide for possible gastroparesis (I explained that there is a small risk of Parkinsonism from this med to the patient and he agreed to try the med ) 2. Pancreatic lesion Plan: Follow-up with Dr. Calix to determine if he needs biopsy 3. Stage III esophageal cancer Plan: per Onc 4. Iron deficiency anemia Plan: Venofer x 3 days 5.Chronic HTN Plan: c/w Atenolol DVT PROPHYLAXIS: Lovenox DISPOSITION: Possibly home after more than 2 midnight's stay Vital Signs Vital Signs Date Time Temp Pulse Resp B/P (MAP) Pulse Ox O2 Delivery O2 Flow Rate FiO2 08/05/19 18:34 18 08/05/19 18:24 100 Room Air 08/05/19 15:09 82 116/62 08/05/19 15:08 98.3 Home Medications Scheduled Atenolol (Atenolol) 25 Mg Tablet, 25 MG PO DAILY Enoxaparin Sodium (Enoxaparin Sodium) 30 Mg/0.3 Ml Syringe, 70 MG SC Q12H Fentanyl (Duragesic) 50 Mcg Patch.td72, 50 MCG TD Q3RD UPPER LEFT ARM Granisetron (Sancuso) 3.1 Mg/24 Hr Patch.tdwk, 3.1 MG TOP 1XWK Lidocaine/Prilocaine (Lidocaine-Prilocaine Cream) 2.5%/2.5% Cream..g., 1 DOSE TOP ASDIRECTED APPLY BEFORE ACCESSING INFUSAPORT Methylphenidate HCl (Ritalin) 5 Mg Tablet, 5 MG PO BID Metoclopramide HCl (Reglan) 10 Mg Tablet, 10 MG PO TID before food and bedtime Pantoprazole Sodium (Pantoprazole Sodium) 40 Mg Tablet.dr, 40 MG PO BID Sertraline Hcl (Sertraline HCl) 50 Mg Tablet, 50 MG PO DAILY 5934-0636 Simethicone (Simethicone) 180 Mg Capsule, 180 MG PO TID Scheduled PRN Enoxaparin Sodium (Enoxaparin Sodium) 40 Mg/0.4 Ml Syringe, 70 MG SC Q12H PRN for 0 Hydrocodone/Acetaminophen (Hydrocodone-Acetamin 10-325 mg) 1 Each Tablet, 1 TAB PO BID PRN for PAIN Polyethylene Glycol 3350 (Miralax) 119 Gm Powder, PO PRN PRN for CONSTIPATION Allergies Coded Allergies: NSAIDS (Non-Steroidal Anti-Inflamma (Verified Adverse Reaction, Intermediate, States it will make his stomach bleed., 08/05/19) A-FIB/CHADSVASC A-FIB History Current/History of A-Fib/PAF?: No Current PO Anticoag Therapy: No OSCAR HILL MD Aug 05, 2019 19:14
[2019-08-05] MEDS ORDERED: ONDANSETRON 4MG/2ML VIAL (J2405) IV PRN (19:15)
[2019-08-05] MEDS ORDERED: DURA50DI2 TD (19:35)
[2019-08-05] MEDS ORDERED: METOCLOPRAMIDE INJ 10MG/2ML VIAL (J2765) IV ONE (20:00)
[2019-08-05] MEDS ORDERED: ENTER DRUG NAME HERE (PATIENT'S OWN MED) PO PRN (21:00)
[2019-08-05] MEDS: SIMETHICONE 80 MG CHEW TAB PO SCH (21:00)
[2019-08-05] MEDS ORDERED: MIRALAX *UNIT DOSE* 17GM PACKET PO PRN (21:00)
[2019-08-05] MEDS ORDERED: IRON SUCROSE 100 MG in NS 100 ML OVER 1 HR IV ONE (21:00)
[2019-08-05] MEDS ORDERED: PANTOPRAZOLE 40MG TAB (PROTONIX) PO SCH (21:00)
[2019-08-05] MEDS ORDERED: IRON SUCROSE 100MG 5ML VIAL (J1756 PER 1MG) IV SCH (21:15)
[2019-08-05] MEDS ORDERED: NORCO, ANEXSIA 5/325MG TABLET (HYDROcodone/ACETAMINOPHEN) PO PRN (22:30)
[2019-08-05 22:40] VITALS: BP 112/74
[2019-08-05] MEDS: IRON SUCROSE 100 MG in NS 100 ML OVER 1 HR IV SCH (23:23)
[2019-08-06] VITALS (8 sets, daily range): BP systolic 99–134; BP diastolic 62–78
[2019-08-06] MEDS: MORPHINE 4 MG/ML 1ML VIAL/SYRINGE (J2270) IV PRN ×2 (00:41→06:23)
[2019-08-06 06:46] LABS: HEMATOCRIT 32.3 % (42.0-52.0); HEMOGLOBIN 9.7 g/dl (13.5-17.5); MEAN CORPUSCULAR HEMOGLOBIN 27.8 pg (27.0-33.0); MEAN CORPUSCULAR VOLUME 92.6 fl (80.0-96.0); PLATELET COUNT, AUTOMATED 267 10^3/uL (150-450); RED BLOOD COUNT 3.49 10^6/uL (4.30-6.10); WHITE BLOOD COUNT 10.6 10^3/uL (4.0-10.0)
[2019-08-06 07:17] LABS: ALBUMIN 2.3 GM/DL (3.2-5.2); ALT/SGPT 19 U/L (12-78); BILIRUBIN,TOTAL 0.1 MG/DL (0.2-1.0); BLOOD UREA NITROGEN 7 MG/DL (7-18); CALCIUM LEVEL 8.2 MG/DL (8.5-10.1); CARBON DIOXIDE LEVEL 30 MEQ/L (21-32); CHLORIDE LEVEL 104 MEQ/L (98-107); CREATININE FOR GFR 0.47 MG/DL (0.70-1.30); GLOMERULAR FILTRATION RATE > 60.0 (>56); GLUCOSE, FASTING 93 MG/DL (70-100); POTASSIUM SERUM 3.9 MEQ/L (3.5-5.1); SODIUM LEVEL 138 MEQ/L (136-145); TOTAL PROTEIN 5.7 GM/DL (6.4-8.2)
[2019-08-06] MEDS: NS 1,000 ML IV SCH (07:30)
[2019-08-06] MEDS ORDERED: SODIUM CHLORIDE 0.9% INJ 10 ML SYR IV PRN (08:00)
[2019-08-06] MEDS ORDERED: oxyCODONE 5MG TAB PO PRN (08:30)
[2019-08-06] MEDS ORDERED: ISOVUE-370 76% 100ML VIAL (Q9967) As Ordered ONE (08:37)
[2019-08-06 08:45] LABS: AMYLASE 29 U/L (25-115); LIPASE 83 U/L (73-393)
[2019-08-06] MEDS: METOCLOPRAMIDE INJ 10MG/2ML VIAL (J2765) IV SCH ×2 (08:55→11:53)
[2019-08-06] MEDS: SIMETHICONE 80 MG CHEW TAB PO SCH ×3 (09:00→20:09)
[2019-08-06] MEDS ORDERED: ENOXAPARIN 40 MG/0.4 ML SYRINGE (J1650) SC SCH (09:00)
[2019-08-06] MEDS ORDERED: SERTRALINE HCL 50 MG TAB PO SCH (09:00)
[2019-08-06] MEDS ORDERED: HYDROMORPHONE HCL 0.5 MG/ 0.5 ML SYRINGE (J1170 PER 1) IV PRN (09:00)
[2019-08-06] MEDS ORDERED: oxyCODONE 20 MG CR TAB PO SCH (09:00)
[2019-08-06] MEDS ORDERED: HYDROMORPHONE HCL 0.5 MG/ 0.5 ML SYRINGE (J1170 PER 1) IV ONE (09:00)
--- NOTE | 2019-08-06 09:15 | CR.PDOC ---
[facility] Pain Clinic Consultation General Date of Consultation: 08/06/19 Consultation Report For: VINOD VERGARA MD Chief Complaint The patient is a 53-year-old male admitted with a reason for visit of Abdominal Pain. History of Present Illness 53 year old male in with complaints of abdominal and current diagnosis of stage 3 Esophageal caner. When asked patient admits that he has used IV Dilaudid in the past and it has been helpful in reducing his pain. He further states that oral medications have a tendency to upset his stomach. Home Medications Scheduled Atenolol (Atenolol) 25 Mg Tablet, 25 MG PO DAILY, (Reported) Fentanyl (Duragesic) 50 Mcg Patch.td72, 50 MCG TD Q3RD, (Reported) UPPER LEFT ARM Granisetron (Sancuso) 3.1 Mg/24 Hr Patch.tdwk, 3.1 MG TOP 1XWK, (Reported) Lidocaine/Prilocaine (Lidocaine-Prilocaine Cream) 2.5%/2.5% Cream..g., 1 DOSE TOP ASDIRECTED, (Reported) APPLY BEFORE ACCESSING INFUSAPORT Pantoprazole Sodium (Pantoprazole Sodium) 40 Mg Tablet.dr, 40 MG PO BID, (Repor chuck) Sertraline Hcl (Sertraline HCl) 50 Mg Tablet, 50 MG PO DAILY, (Reported) [id number] Simethicone (Simethicone) 180 Mg Capsule, 180 MG PO TID, (Reported) Scheduled PRN Hydrocodone/Acetaminophen (Hydrocodone-Acetamin 10-325 mg) 1 Each Tablet, 1 TAB PO BID PRN for PAIN, (Reported) Polyethylene Glycol 3350 (Miralax) 119 Gm Powder, PO PRN PRN for CONSTIPATION, (Reported) Allergies Coded Allergies: NSAIDS (Non-Steroidal Anti-Inflamma (Verified Adverse Reaction, Intermediate, States it will make his stomach bleed., 08/05/19) Social History Social History Denies tobacco, alcohol, or illicit substance abuse. Review of Systems Subjective Constitutional: Denies: chills, fever HEENT: Denies: head aches, vision problems Pulmonary: Denies: cough, shortness of breath Cardiovascular: Denies: chest pain Gastrointestinal: Reports: abdominal pain Physical Examination Physical Examination Vital Signs/I&O Vital Signs Date Time Temp Pulse Resp B/P (MAP) Pulse Ox O2 Delivery O2 Flow Rate FiO2 2/7/20 09:03 18 08/06/19 06:00 98.3 100 134/78 (96) 97 Room Air I&O- Last 24 Hours up to 6 AM 08/06/19 06:00 Intake Total 2005 ml Output Total 600 ml Balance 1405 ml General Exam: Positive: alert, attentive, cooperative Chest Exam: Positive: Clear to auscultation Heart Exam: Positive: Regular rate and rhythm Laboratory Data Labs 24H Laboratory Tests 2 08/06/19 06:17: Nucleated Red Blood Cells % (auto) 0.0, Anion Gap 4L, Glomerular Filtration Rate > 60.0, Calcium Level 8.2L, Total Bilirubin 0.1L, Aspartate Amino Transf (AST/SGOT) 14, Alanine Aminotransferase (ALT/SGPT) 19, Alkaline Phosphatase 71, Total Protein 5.7L, Albumin 2.3L, Albumin/Globulin Ratio 0.68L, Amylase Level 29, Lipase 83 CBC/BMP Laboratory Tests 08/06/19 06:17 Assessment 53 year old male with abdominal pain and current esophageal cancer. Recommend stopping IV morphine and Starting IV dilaudid PRN. Further recommend stopping Oxycodone IR, and OxyContin and starting Roxanol. Recommendation and Plan Thank you Dr. Bingham for allowing us to participate in the care of your patien t. Should you have any questions we will be glad to discuss this with you at any time please contact us here at the pain center at [phone]. WILLIAM SORTO Aug 06, 2019 09:10
[2019-08-06] MEDS ORDERED: OXYC-517 PO (09:17)
[2019-08-06] MEDS ORDERED: OXYC20TA40 PO (09:17)
[2019-08-06] MEDS ORDERED: RITA5TAB PO (09:17)
[2019-08-06] MEDS ORDERED: REGL10TA6 PO (09:17)
[2019-08-06] MEDS: fentaNYL 50 MCG/HR PATCH TD SCH (10:02)
[2019-08-06] MEDS: FENTANYL REMOVAL DOCUMENTATION MISC XX SCH (10:02)
--- NOTE | 2019-08-06 10:04 | REP ---
CT of the chest with IV contrast, CT pulmonary angiography: There are no comparison studies. There are no emboli in the pulmonary trunk or central pulmonary arteries. However, there are small emboli in the pulmonary artery to the anterior segment of the left lower lobe and there is a small embolus in the pulmonary artery to the anterior segment of the right lower lobe. No other emboli are identified. There is an esophageal stent. The left hemidiaphragm is slightly elevated. There is atelectasis in the left lower lobe above the elevated hemidiaphragm. The right lung is clear. There is no mediastinal, hilar or axillary adenopathy. The thoracic aorta is unremarkable. The cardiac size is normal. There is a small pericardial effusion versus pericardial thickening measuring up to 5 ml depth near the cardiac apex. The upper abdomen there is a small volume of ascites posteriorly at the upper pole of the spleen. The visualized hepatic parenchyma, gallbladder, and spleen are otherwise unremarkable. The esophageal stent is again identified. There are pancreatic calcifications, possibly from previous pancreatitis. The adrenals and renal upper poles are unremarkable. Impression: There are bilateral pulmonary emboli as described. There is atelectasis in the left lower lobe above the elevated left hemidiaphragm. There is a small pericardial effusion versus pericardial thickening. There is a small volume of ascites adjacent to the splenic upper pole. There are pancreatic calcifications, possibly from prior pancreatitis. Electronically Signed by Jered Kc MD 08/06/2019 09:56 A
[2019-08-06] MEDS: atenoloL 25 MG TAB PO SCH (10:07)
[2019-08-06] MEDS: SODIUM CHLORIDE 0.9% INJ 10 ML SYR IV SCH ×2 (10:13→10:20)
[2019-08-06] MEDS ORDERED: HEPARIN DRIP 25,000 UNITS in IV 1 EA IV SCH (10:32)
[2019-08-06] MEDS ORDERED: HEPARIN SOD (PORCINE) 5000 UNITS/ML VIAL (J1644 PER 1000UNITS) IV PRN (10:45)
[2019-08-06] MEDS ORDERED: HEPARIN SOD (PORCINE) 5000 UNITS/ML VIAL (J1644 PER 1000UNITS) IV ONE (11:15)
[2019-08-06] MEDS ORDERED: ONDANSETRON 4MG/2ML VIAL (J2405) IV SCH (12:00)
--- NOTE | 2019-08-06 12:31 | IPN ---
DATE OF SERVICE: 08/06/2019 Patient still complains of nausea. Pain is 7/10 on a pain scale. No improvement with IV morphine and oxycodone. Pain Management has suggested intravenous Dilaudid to be given as well as to continue with OxyContin, fentynal patch. Patient has no nausea or vomiting. He had some early satiety but is able to keep the fluids down. Patient is passing gas. Patient has refused intravenous fluids this morning, refused to telemetry. He has also refused CT chest initially because "I've had so much radiation." Patient has refused wound care consultation. Per Dr. Calix, patient is to have a PET scan as outpatient. Patient is to have a gastroenterology consult regarding esophageal stent. General surgical consult for gastric outlet obstruction, wound care consult and biopsy of pancreatic mass. I have discussed with Dr. Calix that Dr. Cat is unable to perform pancreatic mass biopsy. I have spoken to Dr. Zarate from radiology. Also does not do pancreatic mass biopsies. Dr. Cool, conservator artifacts, is on-call to evaluate the patient's stent and also does not do biopsy of pancreatic mass. Per Dr. Cat, both [facility] as well as [facility] have the ability for advanced endoscopies and recommended patient referral. These are not to be done as an inpatient, so there might be a wait list after patient is discharged to home. Vital Signs: Temperature 97.8, pulse 87, respiratory rate 15, blood pressure is 131/70, 99% on room air. Body mass index (BMI) is 21.5. Cachectic appearing, disheveled. Appears to be irritated and very irritable at the bedside. Patient is quick to shout at nursing and staff. He has refused many interventions this morning but agreeable to doing the CT of the chest. No jugular venous distention (JVD). No thyromegaly. Patient is not using respiratory accessory muscles. Able to speak in full sentences. Trachea is midline. Moist mucous membranes. Lungs: Diminished but clear to auscultation. No wheezing or rales. Heart: S1, S2, sinus rhythm. Abdomen is soft, nontender, nondistended. Positive bowel sounds. Infusaport noted on the right anterior chest. Extremities: No cyanosis, clubbing or pitting edema. Patient appears cachectic-appearing. Skin: Sacral decubitus, stage I. LABORATORY DATA: White count 10.6, hemoglobin 9.7, hematocrit 32, platelet count 267. Sodium is 138, potassium 3.9, chloride 104, bicarbonate 30, BUN 7, creatinine 0.47, glucose of 93. Calcium 8.2. Total bilirubin 0.1. AST 14, ALT 19, alkaline phosphatase 71. Total protein 5.7. Albumin 2.3. Amylase 29. Lipase of 83. CEA is pending. IMAGING STUDIES: CT abdomen and pelvis - atelectasis at the left lung base, minimal pericardial thickening or fluid. Stent demonstrated in distal esophagus and gastroesophageal (GE) junction. Normal liver. No mass. Normal gallbladder. No calcified stones. No ductal dilatation. Diffuse pancreatic atrophy. Numerous fungate pancreatic calcifications consistent with chronic pancreatitis. Hypo attenuating process demonstrated in pancreatic neck, head, and uncinate process region surrounding the proximal left renal vein abutting the right renal artery and extending into the kisha hepatis. Overall dimension measures 5.6 x 3.6 on transverse images. Could be inflammation or low density of retroperitoneal process such as lymphangioma or neoplasm, including pancreatic adenocarcinoma and lymphoma. Of note, the process has increased in size in comparison to prior study, which is worrisome for malignancy. The spleen is normal without splenomegaly. There is gastric distention with retained secretions exclude gastric paresis, gastric outlet obstruction suggested. ASSESSMENT AND PLAN: This is a 53-year-old male with the recent diagnosis stage III esophageal cancer, managed by Dr. 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 In October 2018, patient had robotic-assisted diagnostic laparoscopy with esophageal mobilization with tumor involving the right dahlia, bulky lymphadenopathy in the peritoneum laterally to the left gastric chain. Celiac access suspicious for malignancy, positive for adenocarcinoma. Procedure was aborted as the retroperitoneal lymphadenopathy was encasing the celiac access and not resectable. EGD was done treat patient's dysphagia. He had upper GI bleed with melena 11/2018 requiring red blood cell (RBC) transfusion. He was started with Keytruda on 02/05/2019, and severe esophagitis with bleeding on proton pump inhibitor (PPI) starting February. In March, stent removal was thought to be problematic due to significant retroperitoneal lymphadenopathy encasing the celiac access. Patient continued to have intermittent nausea and vomiting and weight loss. Repeat EGD and sten was placed at that time. Last treatment for the patient was August 04 due to persistent diarrhea. Active issues are stage III esophageal adenocarcinoma status post carboplatin and Taxol and radiation for 5 weeks, Keytruda started in January 2019, EGD and stent placed repeated in April with persistent weight loss admitted on 08/05/2019 due to intractable abdominal pain. Current issues are as follows: 1. Stage II esophageal adenocarcinoma. MUGA scan recommended by Dr. Calix. CT chest shows bilateral small pulmonary embolisms (PE) in the periphery. 2. Awaiting CEA, repeat PET scan as outpatient. 3. Bilateral PE, started on intravenous heparin per Dr. Calix, will transition to an oral anticoagulant after a loading dose. 4. Questionable gastric outlet obstruction with esophageal stage III cancer. Gastroenterology has been consulted for evaluation of patient's stent. 5. General surgery has been consulted to evaluate gastric outlet obstruction. Currently tolerating his diet. 6. Chronic pancreatitis with esophageal stent. Currently evaluated by Pain Management. Recommended intravenous Dilaudid, oxycodone, continuing with the fentynal patch, bowel regimen. 7. Sacral decubitus. Patient has refused evaluation by wound medicare sales executive. [facility]
--- NOTE | 2019-08-06 13:02 | IPNPDOC ---
Date Seen The patient was seen on 08/06/19. Progress Note Plan: Bilateral PE: Heparin iv gtt per Dr. Calix Cancer Cachexia: Per Dr. calix, feeding tube placement Patient refused Feeding tube. Pancreatic mass?: Per GI, Dr. Cool, Interventional Radiologist, Dr. Cat, Radiologist , Dr. Swanson, biopsy of the pancreas cannot be done at [facility] due to lack of endoscopic ultrasound. Pt may be referred to : Dr. Nickerson -[facility] Dr. Arroyo[facility] Gastric Outlet Obstruction: General Surgery Dr. Slater. VS, I&O, 24H, Fishbone Vital Signs/I&O Vital Signs Date Time Temp Pulse Resp B/P (MAP) Pulse Ox O2 Delivery O2 Flow Rate FiO2 08/06/19 10:32 20 08/06/19 10:07 87 131/78 08/06/19 10:00 97.8 99 Room Air I&O- Last 24 Hours up to 6 AM 08/06/19 05:59 Intake Total 1705 ml Output Total 600 ml Balance 1105 ml Laboratory Data 24H LABS Laboratory Tests 2 08/06/19 06:17: Nucleated Red Blood Cells % (auto) 0.0, Anion Gap 4L, Glomerular Filtration Rate > 60.0, Calcium Level 8.2L, Total Bilirubin 0.1L, Aspartate Amino Transf (AST/SGOT) 14, Alanine Aminotransferase (ALT/SGPT) 19, Alkaline Phosphatase 71, Total Protein 5.7L, Albumin 2.3L, Albumin/Globulin Ratio 0.68L, Amylase Level 29, Lipase 83 08/06/19 09:57: Carcinoembryonic Antigen 5.1H 08/06/19 11:37: Activated Partial Thromboplast Time 33.9 CBC/BMP Laboratory Tests 08/06/19 06:17 VINOD VERGARA MD Aug 06, 2019 12:57
[2019-08-06] MEDS ORDERED: MORPHINE 10MG/0.5ML ORAL CONCENTRATE SOLUTION U/D SL PRN (13:15)
[2019-08-06] MEDS ORDERED: NALOXONE INJ 0.4 MG/1 ML VIAL (J2310) IV PRN (13:15)
[2019-08-06] MEDS: HEPARIN DRIP 25,000 UNITS in IV 1 EA IV SCH (13:41)
[2019-08-06] MEDS: SERTRALINE HCL 50 MG TAB PO SCH (15:16)
[2019-08-06] MEDS: HYDROMORPHONE HCL 0.5 MG/ 0.5 ML SYRINGE (J1170 PER 1) IV SCH ×2 (15:18→20:09)
--- NOTE | 2019-08-06 15:33 | REP ---
Gated radionuclide ventriculography: History: Esophageal cancer, stage III. Post chemotherapy. Technique: 27 mCi of technetium 99m in-vitro labeled RBCs is administered. Anterior and ESTONIAN gaited ventriculography is acquired. Because of the patient's significant back pain, we were not able to obtain a lateral projection. Semi-automated ventricular ejection fraction and segmental wall motion assessment was generated. Findings: No segmental or global wall motion abnormality is seen. Left ventricular ejection fraction overall is normal at 77%. Impression: Normal left ventricular ejection fraction. No wall motion abnormality. Electronically Signed by Andrews Swanson MD 08/06/2019 03:54 P
--- NOTE | 2019-08-06 17:18 | MEDONCENPD ---
Date/Time of Encounter Date of Encounter: Aug 06, 2019 Encounter DIAGNOSIS AND TREATMENT HISTORY: Per available notes, mainly taken from patient's history. 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 PD-L1 - CPS > 1, HER2 IHC2+ equivocal, FISH positive 2.0. Per patient was deemed Stage III disease ([id number]) - S/P carboplatin/Taxol with concurrent XRT x 5 weeks - dates unclear. 11/05/2018 - Robotic assisted diagnostic laparoscopy, esophageal mobilization. Intraoperative findings - tumor involved left dahlia, also involved right dahlia, bulky LAD in the peritoneum and laterally to the left gastric chain. Frozen samples as follows - celiac axis suspicious for malignancy, right dahlia muscle fibers, left dahlia positive for adenocarcinoma. Further biopsies from celiac axis and left dahlia returned celiac axis positive for adenocarcinoma, left dahlia with margins clear of malignancy. At that point, decision was made to abort the procedure as the retroperitoneal LAD was encasing the celiac axis and not resectable. EGD with stent placed to treat dysphagia. - Per patient late 11/2018, UGIB with dark stool, required packed RBCs. Had EGD - details unclear. 02/05/2019 - Per patient started Keytruda. 03/23/2019 - Severe esophagitis with bleeding, placed on PPI. Keytruda then continued to 04/2019. 04/18/2019 - Esophagoscopy - significant food debris mid esophagus with mucosal oozing proximal to stent. It was felt stent removal could be problematic per prior notes. Continued to have intermittent nausea and vomiting; 05/26/2019 - saw GI at [facility] - repeat EGD - stent replaced, nausea and vomiting resolved. 07/13/2019 - Resumed Keytruda. Last treatment 08/04/2019. Not given for diarrhea per med onc notes at [facility]. HISTORY OF PRESENT ILLNESS: Luis is a 53-year-old gentleman who seeks to transfer his care from [facility] to the [facility]. Per available records, his diagnosis and history is delineated above. Currently, he has had mainly lower abdominal pain for the last 1-2 months, though he states sometimes it is diffuse, 10/10 at worst, comes down to 5-6/10 at best. Takes hydrocodone 10/325 b.i.d. and fentanyl patch 25 mcg commenced 07/2019, increased to 50 mcg as it was ineffective, on 08/03/2019. States pain is not improved with this intervention. He has had some mild constipation which resolved with MiraLAX. More recently, he has a bowel movement every day to every other day. He denies any nausea, but has residual nausea daily despite his prior stent change. Otherwise he has complained of significant fatigue over the past 2 months. Denies any cardiopulmonary symptoms. States his appetite is good. He previously met with the electric organ inspector and repairer, currently is on a 2500 calorie diet. Overall, the patient has had an 80 pound weight loss since March 2018. He denies any other complaints. He was admitted yesterday with his work and management to dated reviewed below. As of today nausea and pain are better controlled No CP, SO, palp, dizziness, no coughing of blood, no black tarry or maroon stools No new c/o PAST MEDICAL/SURGICAL HISTORY: Hypertension. GERD. Microcalcifications noted on CTA chest 06/28/2019 - could be related to prior pancreatitis per radiology. Patient reports no prior known episodes of pancreatitis. MEDICATIONS: Reviewed in EMR ALLERGIES/DRUG SENSITIVITIES: NSAIDS. MORPHINE - nausea, sedation. SOCIAL HISTORY: Smoking - one PPD x 35 years, continues to smoke. Alcohol - Social use, denies any history of heavy use. Drugs - Denies any history of recreational drug use. VITAL SIGNS: Reviewed in EMR - stable. PHYSICAL EXAM: HEENT: Oral mucosa - pink and moist, no conjunctival pallor, sclera anicteric bilaterally. LUNGS: Faint rales left lung base, 1/3 right lung base, decreased breath sounds. HEART: Regular rhythm, no murmurs, no S3, S4, no rubs. ABDOMEN: Diffuse tenderness, no rigidity or rebound tenderness - chronic x 1-2 months. Soft, bowel sounds normoactive, no hepatosplenomegaly. EXTREMITIES: No edema bilaterally. Calves, nontender bilaterally. SKIN/NAILS: No nail changes. No petechiae/ecchymosis. Sacral decubitus ulcer - erythematous with skin intact - Stage I. Central area of scarring - per patient, has a history of pilonidal cyst with last episode of drainage 2009. MUSCULOSKELETAL: Spine nontender to palpation. INVESTIGATIONS: Reviewed in the EMR. ASSESSMENT/PLAN: 1. Esophageal adenocarcinoma - diagnosis and treatment history as above. MUGA done >70%- adequate for future HER2/nancy targeted therapy for HER2/nancy + dz. - PET as outpatient - CT A/P findings noted- evidence of gasteropoeisis, ?Gastric outlet obstruction- d/w Dr. Thomas to obtain GI and Surgical input, - noted pancreatic mass- mets vs new primary- d/w Dr. Thomas and Dr. Perez re: Ct guided IR bx, also noted perirectal mass- mets vs new lower GI malignancy- await GI eval 2. New b/l P.E- malignancy associated - on IV heparin- continue until all invasive/surgical interventions have been completed, then can change to lovenox or a DOAC. - Echo to eval for Rt heart strain 3. Small pericardial effusion vs pericardial thickening ramona on CTA chets - d/w Dr. Perez- Echo for further eval 4. Nausea despite granisetron patch likely 2/2 gastroparesis. Started Reglan IV - better controlled 5. Abdominal pain- Currently on IV dilaudid - Pain better controlled - d/w Dr. Thomas- will need to transition to equianalgesic oral regimen prior to d/c . 6. Fatigue x 2 months - significant per patient. He has no energy to do anything and spends the majority of his time in bed or a chair. Please start Ritalin 5 mg p.o. b.i.d for cancer induced fatigue - titrate up as needed. 7. History of anemia - S/P packed RBCs and IV iron per patient. We do not have detailed records. - current iron indices c/w anemia of chronoic disease - b12/folate/TSH- wnl - monitor counts. 8. Weight loss - 80 pounds since 03/2018 overall per patient. States his appetite is good. He is on a 2500 calorie diet, but is concerned he continues to lose weight - check TSH. Patient decline nutrition evaluation, states he has met critical systems technician in the past and he is following their advice on a 2500 calorie diet. 9. Sacral decubitus ulcer - stage I. D/W hospitalist service- consult wound care. D/W patient- initially refused per notes, now agrees to wound care consultation- defer to hospitalist to refer Wound Care of their choice. FOLLOW UP: With me upon d/c All of the above was relayed to the patient who was given an opportunity to ask questions that were answered to satisfaction. The patient voiced an understanding and agreed to proceed. Thank you for asking us to see this patient in consultation. It is always a privilege and pleasure to participate in the care of your patients. CORINNE HSIEH MD Aug 06, 2019 17:18
[2019-08-06] MEDS: IRON SUCROSE 100 MG in NS 100 ML OVER 1 HR IV SCH (20:07)
[2019-08-06] MEDS: HEPARIN SOD (PORCINE) 5000 UNITS/ML VIAL (J1644 PER 1000UNITS) IV PRN (22:38)
[2019-08-07] VITALS (8 sets, daily range): BP systolic 100–125; BP diastolic 59–84
[2019-08-07] MEDS: HYDROMORPHONE HCL 0.5 MG/ 0.5 ML SYRINGE (J1170 PER 1) IV SCH (03:00)
[2019-08-07 05:01] LABS: HEMATOCRIT 33.9 % (42.0-52.0); HEMOGLOBIN 10.2 g/dl (13.5-17.5); MEAN CORPUSCULAR HEMOGLOBIN 27.3 pg (27.0-33.0); MEAN CORPUSCULAR HGB CONC 30.1 g/dl (32.0-36.5); MEAN CORPUSCULAR VOLUME 90.9 fl (80.0-96.0); PLATELET COUNT, AUTOMATED 264 10^3/uL (150-450); RED BLOOD COUNT 3.73 10^6/uL (4.30-6.10); WHITE BLOOD COUNT 10.5 10^3/uL (4.0-10.0)
[2019-08-07 05:13] LABS: INR 1.02; PROTHROMBIN TIME 13.1 SECONDS (11.8-14.0)
[2019-08-07 05:15] LABS: PARTIAL THROMBOPLASTIN TIME 67.4 SECONDS (25.0-38.4)
[2019-08-07 05:46] LABS: ALBUMIN 2.4 GM/DL (3.2-5.2); ALT/SGPT 20 U/L (12-78); BILIRUBIN,TOTAL 0.1 MG/DL (0.2-1.0); BLOOD UREA NITROGEN 6 MG/DL (7-18); CALCIUM LEVEL 7.9 MG/DL (8.5-10.1); CARBON DIOXIDE LEVEL 32 MEQ/L (21-32); CHLORIDE LEVEL 103 MEQ/L (98-107); CREATININE FOR GFR 0.39 MG/DL (0.70-1.30); GLOMERULAR FILTRATION RATE > 60.0 (>56); GLUCOSE, FASTING 109 MG/DL (70-100); POTASSIUM SERUM 4.5 MEQ/L (3.5-5.1); SODIUM LEVEL 139 MEQ/L (136-145); TOTAL PROTEIN 5.5 GM/DL (6.4-8.2)
[2019-08-07] MEDS: MORPHINE 10MG/0.5ML ORAL CONCENTRATE SOLUTION U/D SL SCH ×5 (07:30→20:07)
[2019-08-07] MEDS: atenoloL 25 MG TAB PO SCH (08:13)
[2019-08-07] MEDS: SIMETHICONE 80 MG CHEW TAB PO SCH ×3 (08:13→20:10)
[2019-08-07] MEDS: SODIUM CHLORIDE 0.9% INJ 10 ML SYR IV SCH (08:14)
[2019-08-07 11:25] LABS: INR 1.03; PROTHROMBIN TIME 13.2 SECONDS (11.8-14.0)
[2019-08-07 11:27] LABS: PARTIAL THROMBOPLASTIN TIME 68.4 SECONDS (25.0-38.4)
[2019-08-07] MEDS: HEPARIN DRIP 25,000 UNITS in IV 1 EA IV SCH ×2 (11:42→18:12)
--- NOTE | 2019-08-07 11:44 | ECHO ---
DATE OF PROCEDURE: 08/07/2019 REFERRING PHYSICIAN: Dr. Arabella Thomas INDICATION: Pericardial disease, unspecified (pericardial thickening). HEIGHT: 182 cm WEIGHT: 69 kg 2D MEASUREMENTS: Ventricular septum: 1.09 cm Posterior wall: 1.14 cm Left ventricle diastole: 3.4 cm Aortic annulus: 2.2 cm Aortic root: 3.5 cm Left atrium: 2.2 cm Inferior vena cava: 1.8 cm DOPPLER MEASUREMENTS: Aortic valve velocity: 101 cm/s No aortic regurgitation. LVOT velocity: 82.9 cm/s LVOT VTI: 18.9 cm Very mild mitral regurgitation. Mitral E velocity: 73.3 cm/s Mitral A velocity: 63.4 cm/s Mitral deceleration time: 239 ms No tricuspid regurgitation. No pulmonic regurgitation. Pulmonary acceleration time: 99 ms MITRAL ANNULAR TISSUE DOPPLER: E prime septal: 7.0 cm/s DESCRIPTION: Rhythm was sinus. Image quality was fair. This was a 2D, M-mode, color flow Doppler and pulse wave Doppler examination and included mitral annular tissue Doppler. CONCLUSIONS: 1. No pericardial effusion. Difficult to assess for pericardial thickening on the study. 2. Left pleural effusion. 3. Normal left ventricle internal dimensions and wall thickness. Normal regional left ventricular (LV) wall motion and wall thickening. Normal LV systolic function. Left ventricular ejection fraction (LVEF) 65% by visual estimate. No regional wall motion abnormalities of the left ventricle. Normal LV diastolic function. 4. Moderate aortic valve sclerosis of a 3-cusp aortic valve. No aortic stenosis or regurgitation. 5. Otherwise normal appearing echocardiogram Doppler findings.
[2019-08-07] MEDS ORDERED: SUCRALFATE SUSP 1GM/10ML UD PO ONE (12:00)
[2019-08-07] MEDS: HYDROMORPHONE HCL 0.5 MG/ 0.5 ML SYRINGE (J1170 PER 1) IV PRN ×2 (12:16→16:25)
[2019-08-07] MEDS: SERTRALINE HCL 50 MG TAB PO SCH (15:21)
[2019-08-07] MEDS: GRANISETRON 3.1 MG TOP SCH (15:21)
[2019-08-07] MEDS: [UNRECOGNIZED DRUG - REMARK] XX SCH (15:21)
[2019-08-07] MEDS: SUCRALFATE SUSP 1GM/10ML UD PO SCH ×2 (17:30→20:10)
[2019-08-07 17:45] LABS: PROTHROMBIN TIME 12.9 SECONDS (11.8-14.0)
[2019-08-07] MEDS: HEPARIN SOD (PORCINE) 5000 UNITS/ML VIAL (J1644 PER 1000UNITS) IV PRN (18:11)
--- NOTE | 2019-08-07 19:17 | IPN ---
DATE: 08/07/2019 The patient is tolerating his diet well. He currently has 2 out of 10 pain and then says that his Fentanyl patch has finally worked. He only required one dose of Dilaudid yesterday, has not tried any Roxanol this morning. The patient stated that he has some difficulty with dysphagia, odynophagia with pills for pain at home. The patient is tolerating his diet well without significant pain. He also is drinking his Ensure, he has drank two since I have been interviewing him at the bedside. The patient has been started on heparin drip due to bilateral pulmonary emboli. Due to pericardial thickening, echo was recommended by medical oncologist and has been ordered to rule out pericardial effusion. Per general surgeon, Dr. Slater, the patient is unlikely to have a gastric outlet obstruction as he is tolerating his diet well without nausea or vomiting and has been having good bowel movements. According to Dr. Cool, no change in management. Per interventional radiology, Dr. Cat, as well as radiology, Dr. Andrews Swanson, we are unable to do a biopsy of the pancreatic mass, as we do not have the equipment here or the training to do so. Dr. Cat had recommended two physician consultations in [place], one is Dr. Nickerson at [facility], and the other is Dr. Garza at [facility] in [place]. Endoscopic ultrasound with pancreatic biopsy is an outpatient procedure and can be scheduled as an outpatient. He denies any shortness of breath, paroxysmal nocturnal dyspnea, dyspnea on exertion, pleuritic chest pain. He did notice while blowing his nose today that he had some dried blood. Denies bright red blood per rectum, melena, black tarry stools. Echocardiogram ready by Dr. Jimenes shows no pericardial effusion, difficult to assess for pericardial thickening on the study, left pleural effusion, ejection fraction of 65%, normal left ventricular diastolic function, otherwise normal appearing echocardiogram. PHYSICAL EXAMINATION: VITAL SIGNS: Temperature 97.6, pulse 86, respiratory rate 18, blood pressure 111/68, 98% on room air. GENERAL: The patient appears cachectic with bitemporal wasting and muscle atrophy. He is very anxious. He has a right Pjjwlu-B-Wnhu in place. awake, alert, oriented times three. Answers questions appropriately. Cachectic appearing. No jugular venous distention (JVD). No thyromegaly. LUNGS: Clear to auscultation. No wheezing or rales. HEART: S1, S2. Sinus rhythm. ABDOMEN: Soft, nontender, nondistended. Positive bowel sounds. EXTREMITIES: No cyanosis, clubbing or pitting edema. LABORATORY DATA: White count 10.5, hemoglobin 10, hematocrit 33, platelet count 264. Sodium 139, potassium 4.5, chloride 102, bicarbonate 32, BUN 6, creatinine 0.39, glucose of 109, CEA 5.1, albumin 2.4. Hemoccult stool 08/06/2019 is positive. CURRENT MEDICATIONS: - heparin drip for bilateral pulmonary emboli - Carafate 1 gram before food and nightly - Dilaudid 0.2 mg every 4 hours as needed for breakthrough pain - Roxanol 5 mg sublingually before food and nightly - Zoloft 50 mg daily - atenolol 25 mg daily - fentanyl patch 50 mcg every 72 hours - MiraLAX one packet daily as needed - simethicone 160 mg three times a day - iron infusion daily - Keytruda ASSESSMENT AND PLAN: This is a 53-year-old male with stage III esophageal cancer, managed by Dr. Calix, admitted for pain control status post carboplatin and Taxol. 1. Esophageal adenocarcinoma. MUGA scan was negative. CT of the chest shows bilateral small pulmonary emboli on the periphery. CEA is elevated. Outpatient restaging. Defer to Dr. Calix for further management. 2. Bilateral pulmonary emboli. On IV heparin. Currently with no active bright red blood per rectum, melena, black tarry stools or hematemesis. He did notice slight epistaxis when he blew his nose this morning with some clots. 3. Intractable nausea and vomiting and epigastric pain, most likely related to his tumor, per surgery. Dr. Slater has been consulted. No change in management. We will continue on proton pump inhibitor and Carafate as needed. 4. Bilateral pulmonary emboli. On intravenous heparin. Concerning for possible gastrointestinal bleed in the future due to esophageal cancer. Monitor hemoglobin and hematocrit, which appears to be stable. 5. Chronic pancreatitis and esophageal cancer with esophageal stent. Pain management recommended IV Dilaudid and Roxanol as pills hurt the patient when he swallows. 6. Sacral decubitus. The patient refused evaluation by wound school childcare attendant. DISPOSITION: Awaiting any gastrointestinal bleed with the heparin for pulmonary emboli. If stable, may transition to oral anticoagulant. The patient's pain is better controlled currently on Fentanyl and oral Roxanol as needed. 2-D echo is negative and MUGA scan showed no acute cardiac issues. MTDD
[2019-08-07] MEDS: IRON SUCROSE 100 MG in NS 100 ML OVER 1 HR IV SCH (20:07)
[2019-08-08] VITALS (7 sets, daily range): BP systolic 98–112; BP diastolic 59–76
[2019-08-08 00:32] LABS: INR 1.01
[2019-08-08 00:35] LABS: PARTIAL THROMBOPLASTIN TIME 108.7 SECONDS (25.0-38.4)
[2019-08-08] MEDS: HYDROMORPHONE HCL 0.5 MG/ 0.5 ML SYRINGE (J1170 PER 1) IV PRN ×4 (02:02→23:44)
[2019-08-08 07:14] LABS: HEMATOCRIT 33.4 % (42.0-52.0); HEMOGLOBIN 10.3 g/dl (13.5-17.5); MEAN CORPUSCULAR HEMOGLOBIN 28.1 pg (27.0-33.0); MEAN CORPUSCULAR HGB CONC 30.8 g/dl (32.0-36.5); PLATELET COUNT, AUTOMATED 273 10^3/uL (150-450); RED BLOOD COUNT 3.67 10^6/uL (4.30-6.10); WHITE BLOOD COUNT 11.2 10^3/uL (4.0-10.0)
[2019-08-08 07:24] LABS: INR 0.99; PROTHROMBIN TIME 12.8 SECONDS (11.8-14.0)
[2019-08-08 07:26] LABS: PARTIAL THROMBOPLASTIN TIME 68.8 SECONDS (25.0-38.4)
[2019-08-08] MEDS: SUCRALFATE SUSP 1GM/10ML UD PO SCH ×4 (07:30→20:27)
[2019-08-08] MEDS: HEPARIN DRIP 25,000 UNITS in IV 1 EA IV SCH (08:03)
[2019-08-08] MEDS: SIMETHICONE 80 MG CHEW TAB PO SCH ×3 (08:03→20:27)
[2019-08-08] MEDS: atenoloL 25 MG TAB PO SCH (08:04)
[2019-08-08] MEDS: MORPHINE 10MG/0.5ML ORAL CONCENTRATE SOLUTION U/D SL SCH ×4 (08:05→20:27)
[2019-08-08] MEDS: MIRALAX *UNIT DOSE* 17GM PACKET PO SCH ×2 (08:38→20:26)
--- NOTE | 2019-08-08 09:58 | CR.PDOC ---
General Surgery Consultation Date of Consultation 08/08/19 History and Physical CONSULT REPORT FOR: hospitalist service/oncology service REASON FOR CONSULTATION: ?gastric outlet obstruction HISTORY OF PRESENT ILLNESS: PAST MEDICAL HISTORY: 1. . PAST SURGICAL HISTORY: INCLUDES: 1. . PREVIOUS ANESTHESIA REACTIONS: ALLERGIES: Please see below. FAMILY HISTORY: . HOME MEDICATIONS: Please see below. REVIEW OF SYSTEMS: GENERAL: [Denies chills, reports weight gain, reports feeling febrile yesterday]. HEENT: [Denies blurred vision and double vision. Denies ear symptoms. Denies hoarseness]. NECK: Denies any neck pain]. CARDIOVASCULAR: [Denies chest pain and palpitations]. MUSCULOSKELETAL: [Denies arthralgias, back pain and thrombophlebitis]. SKIN: [Denies rash]. NEUROLOGIC: [Denies headache, stroke and transient ischemic attack]. PSYCHIATRIC: [Denies anxiety and depression]. ENDOCRINE: [Denies thyroid disease]. HEMATOLOGY/ONCOLOGY: [Denies bleeding or clotting disorder]. HEART: [Denies any chest pains, palpitations, paroxysmal dyspnea, orthopnea]. PULMONARY: [Denies chronic cough, dyspnea and wheezing]. GASTROINTESTINAL: [Denies rectal bleeding, family history of colon cancer, constipation, diarrhea, dysphagia, heartburn and jaundice]. GENITOURINARY: [Denies dysuria, frequency, hematuria and nocturia]. ENDOCRINE: [Denies polydipsia, polyphagia, polyuria, heat or cold intolerance]. INFECTIOUS: [Denies any recent upper respiratory tract infection, UTI, need for use of antibiotics]. NUTRITION: [Reports good appetite]. PHYSICAL EXAMINATION: VITALS SIGNS: Please see below. GENERAL APPEARANCE:[Patient seen, laying in bed, awake, alert, and oriented. Comfortable, in no acute distress]. SKIN: [Warm and moist]. HEENT: [Normocephalic, atraumatic. [place] palpebral conjunctiva, anicteric sclerae. Lips and mucosa appear moist]. NECK: [Supple, no thyromegaly. No obvious jugular venous distention]. LUNGS: [Clear to auscultation bilaterally. No wheezing appreciated]. HEART: [No chest wall abnormalities. Regular rate and rhythm with no murmurs appreciated]. ABDOMEN: Abdomen is , soft, . [No hepatosplenomegaly. No umbilical or groin herniations, nondistended. No noticeable rebound or guarding. No grimacing with palpation. No rebound tenderness. No masses appreciated]. EXTREMITIES: [Extremities have no deformities. No edema identified] ANCILLARIES: . LABORATORY DATA: Please see below. IMAGING STUDIES: CT abdomen and pelvis 1. There is gastric distention with retained secretions. Clinical correlation to exclude gastroparesis or gastric outlet obstruction suggested. 2. Increasing size of a hypoattenuating process in the region of the pancreatic head, neck and uncinate process region extending into the kisha hepatis and posteriorly into the retroperitoneum. Differential diagnosis includes inflammatory lesions, benign the low-density retroperitoneal processes such as lymphangioma, and neoplasm as described above. 3. There is a retroperitoneal adenopathy measuring up to 2.1 cm in the interaortocaval region and 1.8 cm in the left periaortic region, increasing in size in comparison to the prior study. Lymphadenopathy encases the regional vascular structures. Findings consistent with neoplastic involvement. Taken together with findings in 2. Lymphoma is a primary consideration. 4. Moderate prostatic hyperplasia. 5. 5 x 3.7 cm left posterolateral pararectal mass stable in size in comparison to the prior study. Finding may represent a duplication cyst although other pathology is not excluded. IMPRESSION AND PLAN: 53-year-old male with advanced esophageal cancer currently on immunotherapy was controlled with a is admitted for abdominal pain. The question posed on these whether the CT scan findings of distended stomach with the radiologist reading this is a possibility of possible gastroparesis versus gastric of his obstruction Thomas's and endoscopy. Clinically he tells me he is able to tolerate most foods and does not really feel or complain of chest fullness. He does have intermittent episodes of vomiting mostly he feels is related to his abdominal pain as this mostly happens when he is in pain. His Pain is somewhat lower than I would expect for somebody with esophageal cancer that he is pointing periumbilically. 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 If the vagus is also somewhat involved then he may have some gastroparesis. He is scheduled to have an upper GI series done at some time whi ch should be adequate to demonstrate if there is enough good flow though the question still begs what to do about it especially that he may just be minimally symptomatic from this given all his other problems. Vital Signs Vital Signs Date Time Temp Pulse Resp B/P (MAP) Pulse Ox O2 Delivery O2 Flow Rate FiO2 08/08/19 09:53 22 08/08/19 08:04 93 108/69 08/08/19 06:00 98.7 96 Room Air I&Os I&O- Last 24 Hours up to 6 AM 08/08/19 05:59 Intake Total 1227 ml Output Total 2400 ml Balance -1173 ml Laboratory Data Labs 24H Laboratory Tests 2 08/07/19 10:54: Prothrombin Time 13.2, Prothromb Time International Ratio 1.03, Activated Partial Thromboplast Time 68.4H 08/07/19 17:21: Prothrombin Time 12.9, Prothromb Time International Ratio 1.00, Activated Partial Thromboplast Time 57.0H 08/08/19 00:14: Prothrombin Time 13.0, Prothromb Time International Ratio 1.01, Activated [place] l Thromboplast Time 108.7H 08/08/19 07:03: Prothrombin Time 12.8, Prothromb Time International Ratio 0.99, Activated Partial Thromboplast Time 68.8H, Nucleated Red Blood Cells % (auto) 0.0 CBC/BMP Laboratory Tests 08/08/19 07:03 Microbiology Microbiology 08/06/19 Stool Occult Blood (YANET) - Final, Complete Home Medications Scheduled Atenolol (Atenolol) 25 Mg Tablet, 25 MG PO DAILY, (Reported) Fentanyl (Duragesic) 50 Mcg Patch.td72, 50 MCG TD Q3RD, (Reported) UPPER LEFT ARM Granisetron (Sancuso) 3.1 Mg/24 Hr Patch.tdwk, 3.1 MG TOP 1XWK, (Reported) Lidocaine/Prilocaine (Lidocaine-Prilocaine Cream) 2.5%/2.5% Cream..g., 1 DOSE TOP ASDIRECTED, (Reported) APPLY BEFORE ACCESSING INFUSAPORT Methylphenidate HCl (Ritalin) 5 Mg Tablet, 5 MG PO BID Metoclopramide HCl (Reglan) 10 Mg Tablet, 10 MG PO TID before food and bedtime Pantoprazole Sodium (Pantoprazole Sodium) 40 Mg Tablet.dr, 40 MG PO BID, (Reported) Sertraline Hcl (Sertraline HCl) 50 Mg Tablet, 50 MG PO DAILY, (Reported) [id number] Simethicone (Simethicone) 180 Mg Capsule, 180 MG PO TID, (Reported) Scheduled PRN Hydrocodone/Acetaminophen (Hydrocodone-Acetamin 10-325 mg) 1 Each Tablet, 1 TAB PO BID PRN for PAIN, (Reported) Polyethylene Glycol 3350 (Miralax) 119 Gm Powder, PO PRN PRN for CONSTIPATION, (Reported) Allergies Coded Allergies: NSAIDS (Non-Steroidal Anti-Inflamma (Verified Adverse Reaction, Intermediate, States it will make his stomach bleed., 08/05/19) LEONEL AGUILAR MD Aug 08, 2019 09:58
--- NOTE | 2019-08-08 12:44 | IPNPDOC ---
Date Seen The patient was seen on 08/08/19. Progress Note SUBJECTIVE: coffee ground emesis after blowing his nose yesterday. hgb stable no recurrent episode. vitals stable. pain controlled, but needed one dose iv dilaudid in the middle of the night. tolerating his diet without nausea or vomiting. left UE bigger than right without pain. LE no edema. Per [facility], Dr. Calix, EGD to stable any ulcers,AVM. EGD in am with Dr. Cool. Heparin iv gtt to be held 6hrs prior to procedure. npo after midnight. and pt agree at the bedside with management plan. will need ivc filter if (+) GI bleed. (+)stool for blood. OBJECTIVE: VITALS: PLS SEE BELOW Cachectic appearing, disheveled. No jugular venous distention (JVD). No thyromegaly. Patient is not using respiratory accessory muscles. Able to speak in full sentences. Trachea is midline. Moist mucous membranes. Lungs: Diminished but clear to auscultation. No wheezing or rales. Heart: S1, S2, sinus rhythm. Abdomen is soft, nontender, nondistended. Positive bowel sounds. Infusaport noted on the right anterior chest. Extremities: No cyanosis, clubbing or pitting edema. Patient appears cachectic-appearing. Skin: Sacral decubitus, stage I. LABORATORY DATA/IMAGING STUDIES: pls see below CURRENT MEDICATIONS: - heparin drip for bilateral pulmonary emboli - Carafate 1 gram before food and nightly - Dilaudid 0.2 mg prn FOR BREAKTHROUGH PAIN - Roxanol 5 mg sublingually before food and nightly - Roxanol 5mg sl q2hprn breakthrough pain - Zoloft 50 mg daily - atenolol 25 mg daily - fentanyl patch 50 mcg every 72 hours - MiraLAX one packet daily as needed - simethicone 160 mg three times a day - iron infusion daily - Keytruda ASSESSMENT AND PLAN: This is a 53-year-old male with esophageal cancer, managed by Dr. Calix, admitted for pain control status post carboplatin and Taxol. 1. Esophageal adenocarcinoma. MUGA scan was negative. CT of the chest shows bilateral small pulmonary emboli on the periphery. CEA is elevated. Outpatient restaging with PET scan. Defer to Dr. Calix for further management. coffee ground emesis after blowing his nose yesterday. hgb stable no recurrent episode. vitals stable. Per [facility], Dr. Calix, EGD to stable any ulcers,AVM. EGD in am with Dr. Cool. Heparin iv gtt to be held 6hrs prior to procedure. npo after midnight. and pt agree at the bedside with management plan. will need ivc filter if (+) GI bleed. (+)stool for blood. 2. Bilateral pulmonary emboli. On IV heparin. EGD in am with Dr. Cool. Heparin iv gtt to be held 6hrs prior to procedure. will need ivc filter if (+) GI bleed. (+)stool for blood. 3. Intractable nausea and vomiting and epigastric pain, resolved most likely related tohis tumor, per surgery. Dr. Slater has been consulted. No change in management. We will continue on proton pump inhibitor and Carafate as needed. has been tolerating his diet and supplemental ensure 4. Chronic pancreatitis and esophageal cancer with esophageal stent. Pain management recommended IV Dilaudid and Roxanol as pills hurt the patient when he swallows. Doing well with qachs but had to use one dose of iv dilaudid last night.. will change to q4h roxanol and q2hprn breakthrough pain. 5. Protein calorie malnutrition. onsupplemental ensure 6. Sacral decubitus. The patient refused evaluation by wound child care attendant school. DISPOSITION: EGD friday. if (+) GI bleed, will need IVC filter. VS, I&O, 24H, Fishbone Vital Signs/I&O Vital Signs Date Time Temp Pulse Resp B/P (MAP) Pulse Ox O2 Delivery O2 Flow Rate FiO2 08/08/19 12:25 20 08/08/19 10:00 98.3 81 102/59 (73) 98 Room Air I&O- Last 24 Hours up to 6 AM 08/08/19 06:00 Intake Total 1241 ml Output Total 2400 ml Balance -1159 ml Laboratory Data 24H LABS Laboratory Tests 2 08/07/19 17:21: Prothrombin Time 12.9, Prothromb Time International Ratio 1.00, Activated Partial Thromboplast Time 57.0H 08/08/19 00:14: Prothrombin Time 13.0, Prothromb Time International Ratio 1.01, Activated Partial Thromboplast Time 108.7H 08/08/19 07:03: Prothrombin Time 12.8, Prothromb Time International Ratio 0.99, Activated Partial Thromboplast Time 68.8H, Nucleated Red Blood Cells % (auto) 0.0 CBC/BMP Laboratory Tests 08/08/19 07:03 Microbiology Microbiology 08/06/19 Stool Occult Blood (YANET) - Final, Complete VINOD VERGARA MD Aug 08, 2019 12:38
[2019-08-08 13:30] LABS: INR 1.03; PROTHROMBIN TIME 13.2 SECONDS (11.8-14.0)
[2019-08-08 13:31] LABS: PARTIAL THROMBOPLASTIN TIME 47.3 SECONDS (25.0-38.4)
--- NOTE | 2019-08-08 13:37 | REP ---
Clinical: Pulmonary embolus. Lower extremity pain. Technique: Zarate scale and color Doppler evaluation of the bilateral lower extremities using linear high frequency transducer. Findings: Ultrasound examination of the right and left lower extremity deep venous structures from the common femoral vein to the popliteal vein demonstrates normal compressibility flow and wave patterns in response to respiration and augmentation. There is no evidence for deep venous thrombosis. Impression: No evidence for deep venous thrombosis bilateral lower extremities . Electronically Signed by Harman Rodriguez MD 08/08/2019 01:28 P
[2019-08-08] MEDS: HEPARIN SOD (PORCINE) 5000 UNITS/ML VIAL (J1644 PER 1000UNITS) IV PRN (13:53)
--- NOTE | 2019-08-08 13:53 | MEDONCENPD ---
Date/Time of Encounter Date of Encounter: Aug 08, 2019 Encounter DIAGNOSIS AND TREATMENT HISTORY: Per available notes, mainly taken from patient's history. 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 PD-L1 - CPS > 1, HER2 IHC2+ equivocal, FISH positive 2.0. Per patient was deemed Stage III disease ([id number]) - S/P carboplatin/Taxol with concurrent XRT x 5 weeks - dates unclear. 11/05/2018 - Robotic assisted diagnostic laparoscopy, esophageal mobilization. Intraoperative findings - tumor involved left dahlia, also involved right dahlia, bulky LAD in the peritoneum and laterally to the left gastric chain. Frozen samples as follows - celiac axis suspicious for malignancy, right dahlia muscle fibers, left dahlia positive for adenocarcinoma. Further biopsies from celiac axis and left dahlia returned celiac axis positive for adenocarcinoma, left dahlia with margins clear of malignancy. At that point, decision was made to abort the procedure as the retroperitoneal LAD was encasing the celiac axis and not resectable. EGD with stent placed to treat dysphagia. - Per patient late 11/2018, UGIB with dark stool, required packed RBCs. Had EGD - details unclear. 02/05/2019 - Per patient started Keytruda. 03/23/2019 - Severe esophagitis with bleeding, placed on PPI. Keytruda then continued to 04/2019. 04/18/2019 - Esophagoscopy - significant food debris mid esophagus with mucosal oozing proximal to stent. It was felt stent removal could be problematic per prior notes. Continued to have intermittent nausea and vomiting; 05/26/2019 - saw GI at [facility] - repeat EGD - stent replaced, nausea and vomiting resolved. 07/13/2019 - Resumed Keytruda. Last treatment 08/04/2019. Not given for diarrhea per med onc notes at [facility]. HISTORY OF PRESENT ILLNESS: Luis is a 53-year-old gentleman who last week established / [facility]. Per available records, his diagnosis and history is delineated above at the [facility] A/W uncontrolled nausea and abd pain Since adding reglan, IV dilaudid and roxinol, nausea and pain are better controlled This AM per Dr. Sheets patient had episode of coffee ground emesis No CP, SOB, palp, dizziness, no coughing of blood per patient, states he coughed up some dark phlegm, no black tarry or maroon stools No other new c/o PAST MEDICAL/SURGICAL HISTORY: Hypertension. GERD. Microcalcifications noted on CTA chest 06/28/2019 - could be related to prior pancreatitis per radiology. Patient reports no prior known episodes of pancreatitis. MEDICATIONS: Reviewed in EMR ALLERGIES/DRUG SENSITIVITIES: NSAIDS. MORPHINE - nausea, sedation. VITAL SIGNS: Reviewed in EMR - stable. PHYSICAL EXAM: HEENT: Oral mucosa - pink and moist, no conjunctival pallor, sclera anicteric bilaterally. LUNGS: Faint rales left lung base, 1/3 right lung base, decreased breath sounds. HEART: Regular rhythm, no murmurs, no S3, S4, no rubs. ABDOMEN: Lower abd tenderness, improved from diffuse tenderness on day of admission, no rigidity or rebound tenderness, Soft, bowel sounds normoactive EXTREMITIES: No edema bilaterally. Calves, nontender bilaterally. SKIN/NAILS: Prior exam- No nail changes. No petechiae/ecchymosis. Sacral decubitus ulcer - erythematous with skin intact - Stage I. Central area of scarring - per patient, has a history of pilonidal cyst with last episode of drainage 2009. INVESTIGATIONS: Reviewed in the EMR. ASSESSMENT/PLAN: 1. Esophageal adenocarcinoma - diagnosis and treatment history as above. MUGA done >70%- adequate for future HER2/nancy targeted therapy for HER2/nancy + dz. - PET as outpatient - CT A/P findings noted- evidence of gasteropoeisis, ?Gastric outlet obstruction- seen by Surgery - UGI series awaited - Noted pancreatic mass- mets vs new primary- d/w Dr. Thomas and Dr. Perez re: Ct guided IR bx (will d/w IR in AM) also noted perirectal mass- mets vs new lower GI malignancy vs duplication cyst per radiology- await GI eval 2. New b/l P.E- malignancy associated w/ single episode of coughing dark sputum AM of 08/08/19- likely hemoptysis 2/2 PE - on IV heparin- continue until all invasive/surgical interventions have been completed, EGD planned in AM, upon GI clearance, then can change to lovenox - Echo to eval for Rt heart strain- no evidence - b/l lower extremity venous dopplers - negative for DVT - Temporary IVC filters are best reserved for patients who have active bleeding and can't be anticoagulated. If no acute active source of bleeding, would avoid IVC filter in this hypercoagulable state as they can form a nidus for thrombus formation w/ the risk of clot migration. 3. Small pericardial effusion vs pericardial thickening ramona on CTA chest - Echo - no effusion, could not evaluate for pericardial thickening - Asymptomatic 4. Nausea despite granisetron patch likely 2/2 gastroparesis. on Reglan - better controlled, EGD planned in AM 5. Abdominal pain- Currently on IV dilaudid - Pain better controlled - d/w Dr. Thomas- will need to transition to equianalgesic oral regimen prior to d/c 6. Fatigue x 2 months - significant per patient. He has no energy to do anything and spends the majority of his time in bed or a chair. Please start Ritalin 5 mg p.o. b.i.d for cancer induced fatigue - titrate up as needed. 7. History of anemia - S/P packed RBCs and IV iron per patient. We do not have detailed records. - current iron indices c/w anemia of chronic disease - B12/folate/TSH- wnl - monitor counts. 8. Weight loss - 80 pounds since 03/2018 overall per patient. States his appetite is good. He is on a 2500 calorie diet, but is concerned he continues to lose weight - check TSH. Patient decline nutrition evaluation, states he has met pharmacy stock clerk in the past and he is following their advice on a 2500 calorie diet. 9. Sacral decubitus ulcer - stage I. Re-D/W patient- initially refused per notes, now agrees to wound care consultation- defer to hospitalist to refer Wound Care of their choice. FOLLOW UP: With me upon d/c D/w Dr. Thomas. All of the above was relayed to the patient who was given an opportunity to ask questions that were answered to satisfaction. The patient voiced an und erstanding and agreed to proceed. CORINNE HSIEH MD Aug 08, 2019 13:53
[2019-08-08] MEDS: SERTRALINE HCL 50 MG TAB PO SCH (15:12)
--- NOTE | 2019-08-08 15:24 | CR ---
DATE OF CONSULTATION: 08/08/2019 This is a 53-year white male who is admitted to [facility] for evaluation of severe lower abdominal pain. The patient's pain radiates to his lower back. He has had this pain for almost a year. 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 He has had two esophageal stents placed; the first stent occluded secondary to tumor growth and needed to be replaced. He received chemo and radiation. 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 Per patient, he is currently on Keytruda. He is status post chemo port placement. He has a history of hypertension. The patient is being seen by GI for evaluation of anemia and apparent episode of coughing up blood, not vomiting blood. The patient has had a recent diagnosis of a pulmonary embolism, and the plan is to place him on anticoagulation therapy, but because of the single episode of coughing up blood, the oncologist wishes upper endoscopy evaluation. 12-point review of systems is noncontributory. PAST MEDICAL HISTORY: 1. Stage III esophageal carcinoma (CA) with metastases (mets). 2. Hypertension. 3. Status post chemo port placement. SOCIAL HISTORY: The patient continues to smoke. FAMILY HISTORY: The father had colon cancer and hypertension. ALLERGIES: No known declared allergies. PHYSICAL EXAMINATION: Noncontributory to the above problem. IMAGING: Tests on this admission included abdominal CT on 08/05/2019 with the impression of some gastric distension and secretions, possible gastroparesis or gastric outlet obstruction, though the patient denies any problems with vomiting of food. There is apparently an area in the region of the pancreatic head and neck and uncinate process extending into the kisha hepatis and posteriorly into retroperitoneum. The differential diagnosis was inflammatory lesions versus possible lymphangioma versus neoplasm. The patient also had retroperitoneal adenopathy measuring up to 2.1 cm in the interaortocaval region and1.8 cm in the left periaortic region. The patient has lymphadenopathy in the regional vascular structures. The patient has prostate hyperplasia. 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 Laboratory studies in this hospitalization includes a white count 10,600, hemoglobin and hematocrit of 9.7 and 32.3, which has been stable for the past 3 days. Patient's CMP was completely normal. CEA was 5.1. Lipase is normal. Liver functions were normal. Renal functions were normal. ANALYSIS: Mild anemia. Apparent episode of hemoptysis in a patient that apparently has bilateral small pulmonary embolism (PEs) The patient will require anticoagulation. Oncology is requesting upper endoscopy for upper gastrointestinal (GI) tract evaluation. Plan will be to set the patient up for an esophagogastroduodenoscopy (EGD) in [facility] tomorrow using a small bore gastroscope so that we avoid any dislodgement of the esophageal stents.
[2019-08-08] MEDS: IRON SUCROSE 100 MG in NS 100 ML OVER 1 HR IV SCH (22:04)
[2019-08-08] MEDS ORDERED: METOCLOPRAMIDE 5 MG TAB PO PRN (23:15)
[2019-08-09] MEDS: MORPHINE 10MG/0.5ML ORAL CONCENTRATE SOLUTION U/D SL SCH ×4 (04:00→12:00)
[2019-08-09 06:00] VITALS: BP 123/75
[2019-08-09 06:46] LABS: INR 0.98; PROTHROMBIN TIME 12.7 SECONDS (11.8-14.0)
[2019-08-09 06:47] LABS: PARTIAL THROMBOPLASTIN TIME 36.7 SECONDS (25.0-38.4)
[2019-08-09] MEDS: SUCRALFATE SUSP 1GM/10ML UD PO SCH ×4 (07:30→20:54)
[2019-08-09] MEDS: MIRALAX *UNIT DOSE* 17GM PACKET PO SCH ×2 (08:07→20:54)
[2019-08-09] MEDS: FENTANYL REMOVAL DOCUMENTATION MISC XX SCH (08:07)
[2019-08-09] MEDS: atenoloL 25 MG TAB PO SCH (08:07)
[2019-08-09] MEDS: SIMETHICONE 80 MG CHEW TAB PO SCH ×3 (08:07→20:54)
[2019-08-09] MEDS: fentaNYL 50 MCG/HR PATCH TD SCH (08:07)
[2019-08-09] MEDS ORDERED: ENOX30IN3 SC (11:19)
[2019-08-09] MEDS ORDERED: ENOX40IN3 SC (11:19)
[2019-08-09] MEDS ORDERED: METOCLOPRAMIDE 10 MG TAB PO SCH (12:00)
[2019-08-09] MEDS ORDERED: propofoL 200 MG/20 ML VIAL As Ordered ONE (12:57)
[2019-08-09] MEDS ORDERED: LIDOCAINE 2% INJ 100 MG/5 ML SDV (FOR ANES.) As Ordered ONE (12:57)
[2019-08-09] MEDS ORDERED: PHENYLephrine HCL 500 MCG/5 ML (100MCG/ML) SYRINGE (J2370) As Ordered ONE (13:29)
[2019-08-09] MEDS ORDERED: ePHEDrine SULFATE 25 MG/5 ML(5MG/ML) SYRINGE As Ordered ONE (13:33)
--- NOTE | 2019-08-09 13:35 | ROOR ---
Patient Name: Luis Fuller Procedure Date: 08/09/2019 1:17 PM Date of : 1965 Age: 53 Room: [facility] Gender: Male Note Status: Finalized Procedure: Upper GI endoscopy Indications: Iron deficiency anemia, Suspected upper gastrointestinal bleeding Providers: Geovany Cool MD Referring MD: 2. Inpatient 2. Inpatient Requesting Provider: Medicines: Monitored Anesthesia Care Complications: No immediate complications. Procedure: Pre-Anesthesia Assessment: - The heart rate, respiratory rate, oxygen saturations, blood pressure, adequacy of pulmonary ventilation, and response to care were monitored throughout the procedure. The Colonoscope was introduced through the mouth, and advanced to the second part of duodenum. The upper GI endoscopy was accomplished without difficulty. The patient tolerated the procedure well. Findings: An esophageal stent was found in the lower third of the esophagus. A medium amount of food (residue) was found in the gastric fundus and in the gastric body. The exam of the duodenum was otherwise normal. Impression: - Pre-existing esophageal stent. - A medium amount of food (residue) in the stomach. - No specimens collected. - The examination was otherwise normal. Recommendation: - Patient has a contact number available for emergencies. The signs and symptoms of potential delayed complications were discussed with the patient. Return to normal activities tomorrow. Written discharge instructions were provided to the patient. - Continue present medications. - Return to referring physician. - Return patient to [facility] for ongoing care. - The findings and recommendations were discussed with the patient's family. Geovany Cool MD Geovany Cool MD 08/09/2019 1:35:07 PM Electronically signed by Geovany Cool MD Number of Addenda: 0 Note Initiated On: 08/09/2019 1:17 PM Estimated Blood Loss: Estimated blood loss: none.
[2019-08-09 14:00] VITALS: BP 135/70
--- NOTE | 2019-08-09 14:03 | IPN ---
DATE: 08/09/2019 The patient is requesting for the Reglan to be given before meals and at bedtime as previously to improve his the help with his constipation. He currently denies any coffee ground emesis, hematemesis, bright red blood per rectum, melena, black tarry stools. He is tolerating his diet well. He is much more sedated on the Roxanol and the Fentanyl patch, changed it to as needed. The patient has been alerted that he could have pain control every 2 hours. Per pharmacy, due to the patient's Zoloft and risk of serotonin syndrome, Reglan has been changed to as needed as well as Zofran given as needed. The patient is off anticoagulation for his bilateral pulmonary embolism due to planned EGD today to further evaluate his one episode of post nasal cough with coffee ground when he blew his nose on Friday. Plans per Dr. Calix is to discharge on Lovenox 1 mg/kg subcu every 12 hours for bilateral PE's. PHYSICAL EXAMINATION: Temperature 97.1, pulse 95, respiratory rate 18, blood pressure 107/65, 96% on room air. Generally, patient is cachectic with bitemporal wasting, appears much older than his stated age. He is avoiding eye contact. Appears to be somewhat depressed, in position lying on his left side with the at the bedside. The patient is able to speak in full sentences. His lungs are clear to auscultation. There is no wheezing or rales. Heart S1, S2. Abdomen is soft, nontender, nondistended. Extremities no cyanosis, clubbing or pitting edema. Laboratory data, imaging studies and microbiology have been reviewed. ASSESSMENT AND PLAN: This is a 53-year-old male with persistent dysphagia, status post EGD with biopsy on 07/24/2018 showing a low grade mucinous CA at the and esophageal portion of the tumor, stage III disease, status post carboplatin and Taxol with XRT for 5 weeks. Status post robotic assisted diagnostic laparoscopy, 11/05/2018 with intraoperative finding of tumor involving the left dahlia, right dahlia, bulky lymphadenopathy in the peritoneum bilaterally to the left gastric chain, celiac axis was suspicious for malignancy, left dahlia positive for adenocarcinoma. Further biopsies returned positive for adenocarcinoma, procedure was aborted as the retroperitoneal lymphadenopathy was incasing the celiac axis which was not resectable. EGD with stent was placed to treat the patient's dysphagia. The patient did have an upper bleed with dark stool requiring RBC transfusion in November 2018. He was started on Keytruda on 02/05/2019, on 03/23 had severe esophagitis and bleeding, was put on PPI. Esophagoscopy on 04/18/2019 showed food debris in the mid esophagus with oozing proximal to the stent and this stent could not be removed due to extensive disease. He has continued to progressively lose weight and presented here with intractable pain. Active issues are as follows: 1. Coffee ground emesis with history of esophageal adenocarcinoma stage III. Patient is to undergo EGD today for stabilization of any bleed. MUGA scan was negative. CT chest showed bilateral small pulmonary emboli in the periphery. CEA was elevated. Patient is to have restaging due to advancement of his tumor despite Keytruda. Per Dr. Calix's recommendations he is to be continued he is to be continued on Lovenox subcu every 12 hours. Patient has refused feeding tube placement. 2. Bilateral small pulmonary emboli. Lovenox has been held due to planned EGD today. May resume on 70 mg subcu every 12 hours, 1 mg/kg every 12. The patient says he can self administer this. 3. Intractable nausea and vomiting. Evaluated by general surgeon Dr. Slater, who did not feel that the patient had gastric outlet obstruction as he is tolerating his food and water and was having bowel movements. 4. Chronic pancreatitis and esophageal cancer with esophageal stent. Pain management recommended Roxanol. He currently has a fentanyl patch doing much better, but feeling very sedated today, therefore every 4 hours will be discontinued and the patient will be kept on every 2 hours as needed. 5. Severe protein calorie malnutrition on supplemental Ensure. 6. Sacral decubitus, stage 1. Wound care consulted. [facility]
[2019-08-09 16:00] VITALS: BP 82/50
[2019-08-09] MEDS: SERTRALINE HCL 50 MG TAB PO SCH (18:17)
[2019-08-09] MEDS: ENOXAPARIN 80 MG/0.8 ML SYRINGE (J1650) SC SCH (18:17)
[2019-08-09] MEDS: METOCLOPRAMIDE 10 MG TAB PO PRN (18:17)
[2019-08-09] MEDS: SENOKOT S TAB PO SCH (20:54)
[2019-08-09] MEDS: PANTOPRAZOLE 40MG TAB (PROTONIX) PO SCH (20:54)
[2019-08-09 21:10] VITALS: BP 90/60
[2019-08-09] MEDS: IRON SUCROSE 100 MG in NS 100 ML OVER 1 HR IV SCH (21:23)
[2019-08-09] MEDS ORDERED: NS 500 ML IV ONE (21:45)
[2019-08-09 22:00] VITALS: BP 88/55
[2019-08-09 22:48] VITALS: BP 100/58
[2019-08-10] VITALS (8 sets, daily range): BP systolic 98–135; BP diastolic 58–68
[2019-08-10] MEDS ORDERED: NS 500 ML IV ONE (02:30)
[2019-08-10] MEDS ORDERED: ACETAMINOPHEN TAB 650MG DOSE (2X325MG) PO PRN (02:30)
[2019-08-10] MEDS: ENOXAPARIN 80 MG/0.8 ML SYRINGE (J1650) SC SCH ×2 (05:48→17:59)
[2019-08-10] MEDS: SUCRALFATE SUSP 1GM/10ML UD PO SCH ×4 (07:30→22:04)
[2019-08-10] MEDS: MIRALAX *UNIT DOSE* 17GM PACKET PO SCH ×2 (08:13→20:01)
[2019-08-10] MEDS: SIMETHICONE 80 MG CHEW TAB PO SCH ×3 (08:13→21:00)
[2019-08-10] MEDS: SENOKOT S TAB PO SCH ×2 (08:32→20:01)
[2019-08-10] MEDS: atenoloL 25 MG TAB PO SCH (08:32)
--- NOTE | 2019-08-10 14:01 | IPNPDOC ---
Subjective Date Seen The patient was seen on 08/10/19. Subjective Chief Complaint/HPI Doing fine following GI evaluation. Appetite picking up. Pain controlled. Complains of feeling weak. Objective Physical Examination General Exam: Positive: Alert, Cooperative, Other (cachectic appearance) Eye Exam: Negative: Sclera icteric Neck Exam: Positive: Supple Chest Exam: Positive: Clear to auscultation Heart Exam: Positive: Rate Normal, Tachycardic Abdomen Exam: Positive: Normal bowel sounds Extremity Exam: Negative: Clubbing, Cyanosis, Edema Skin Exam: Positive: Other skin issue (stag 1 sacral decub, poa); Negative: Rash Neuro Exam: Positive: Normal Speech Psych Exam: Positive: Mental status NL Assessment /Plan Assessment # Bilateral Pulmonary embolism - lovenox 1 mg /kg sq q 12 - awaiting insurance prior auth for discharge # Chronic pain syndrome - pain controlled with current regimen # Coffe-ground emesis - GI evaluation unremarkable # Stage 3 esophageal carcinoma - will f/u with oncology as outpatient Plan/VTE VTE Prophylaxis Ordered?: Yes VTE Exclusion Mechanical Proph: N/A:VTE Prophy Ordered VTE Exclusion Pharmacological: N/A:VTE Prophy Ordered VS, I&O, 24H, Fishbone Vital Signs/I&O Vital Signs Date Time Temp Pulse Resp B/P (MAP) Pulse Ox O2 Delivery O2 Flow Rate FiO2 08/10/19 10:00 97.6 102 18 124/68 (86) 98 08/10/19 06:00 Nasal Cannula 1.0 I&O- Last 24 Hours up to 6 AM 08/10/19 06:00 Intake Total 657 ml Output Total 1500 ml Balance -843 ml Laboratory Data 24H LABS Laboratory Tests 2 08/09/19 17:19: Bedside Glucose (Misc Panel) 101 Microbiology Microbiology 08/06/19 Stool Occult Blood (YANET) - Final, Complete MEGAN ALCARAZ MD Aug 10, 2019 14:01
[2019-08-10] MEDS: SERTRALINE HCL 50 MG TAB PO SCH (16:20)
[2019-08-10] MEDS: MORPHINE 10MG/0.5ML ORAL CONCENTRATE SOLUTION U/D SL PRN (16:21)
[2019-08-10] MEDS: IRON SUCROSE 100 MG in NS 100 ML OVER 1 HR IV SCH (21:00)
[2019-08-10] MEDS: PANTOPRAZOLE 40MG TAB (PROTONIX) PO SCH (22:05)
[2019-08-10] MEDS: HYDROMORPHONE HCL 0.5 MG/ 0.5 ML SYRINGE (J1170 PER 1) IV PRN (22:08)
[2019-08-11] VITALS (7 sets, daily range): BP systolic 95–142; BP diastolic 60–88
[2019-08-11] MEDS: ENOXAPARIN 80 MG/0.8 ML SYRINGE (J1650) SC SCH (05:26)
[2019-08-11 06:30] LABS: HEMATOCRIT 33.6 % (42.0-52.0); HEMOGLOBIN 10.3 g/dl (13.5-17.5); MEAN CORPUSCULAR HEMOGLOBIN 27.9 pg (27.0-33.0); MEAN CORPUSCULAR HGB CONC 30.7 g/dl (32.0-36.5); MEAN CORPUSCULAR VOLUME 91.1 fl (80.0-96.0); PLATELET COUNT, AUTOMATED 269 10^3/uL (150-450); RED BLOOD COUNT 3.69 10^6/uL (4.30-6.10); WHITE BLOOD COUNT 22.4 10^3/uL (4.0-10.0)
[2019-08-11] MEDS: SUCRALFATE SUSP 1GM/10ML UD PO SCH ×4 (07:30→21:44)
[2019-08-11] MEDS: MIRALAX *UNIT DOSE* 17GM PACKET PO SCH ×2 (08:51→20:06)
[2019-08-11] MEDS: SIMETHICONE 80 MG CHEW TAB PO SCH ×3 (08:52→20:06)
[2019-08-11] MEDS: SENOKOT S TAB PO SCH ×2 (08:52→19:59)
[2019-08-11] MEDS: METOCLOPRAMIDE 10 MG TAB PO PRN (08:52)
[2019-08-11] MEDS: atenoloL 25 MG TAB PO SCH (08:52)
[2019-08-11] MEDS: HYDROMORPHONE HCL 0.5 MG/ 0.5 ML SYRINGE (J1170 PER 1) IV PRN ×3 (11:05→21:44)
[2019-08-11] MEDS: MORPHINE 10MG/0.5ML ORAL CONCENTRATE SOLUTION U/D SL PRN ×2 (13:21→20:03)
[2019-08-11] MEDS: SERTRALINE HCL 50 MG TAB PO SCH (15:41)
--- NOTE | 2019-08-11 18:46 | IPNPDOC ---
Subjective Date Seen The patient was seen on 08/11/19. Subjective Chief Complaint/HPI tanya is c/o lovenox injection, and that it hurts him and he does not have any subcu fat for injection sites. He endorses feeling weak. He's afebrile. Objective Physical Examination General Exam: Positive: Alert, Cooperative, No Acute Distress, Other (cachectic appearance) Eye Exam: Negative: Sclera icteric Neck Exam: Positive: Supple Chest Exam: Positive: Clear to auscultation Heart Exam: Positive: Rate Normal, Tachycardic Abdomen Exam: Positive: Normal bowel sounds Extremity Exam: Negative: Clubbing, Cyanosis, Edema Skin Exam: Positive: Other skin issue (stag 1 sacral decub, poa); Negative: Rash Neuro Exam: Positive: Normal Speech Psych Exam: Positive: Mental status NL Assessment /Plan Assessment # Bilateral Pulmonary embolism - d/c lovenox 1 mg /kg sq q 12 - start eliquis 10 mg bid x 7 days, then 5 mg bid - awaiting insurance prior auth for discharge # Chronic pain syndrome - pain controlled with current regimen # Coffe-ground emesis - GI evaluation unremarkable # Stage 3 esophageal carcinoma - will f/u with oncology as outpatient # Leukocytosis - suspect due to PE likely causing infarct, repeat CBC in am # Gen weakness - consult PT to see if he qualifies for rehab placement Plan/VTE VTE Prophylaxis Ordered?: Yes (eliquis) VTE Exclusion Mechanical Proph: N/A:VTE Prophy Ordered VTE Exclusion Pharmacological: N/A:VTE Prophy Ordered VS, I&O, 24H, Fishbone Vital Signs/I&O Vital Signs Date Time Temp Pulse Resp B/P (MAP) Pulse Ox O2 Delivery O2 Flow Rate FiO2 08/11/19 17:26 17 Room Air 08/11/19 14:00 98.8 78 142/88 (106) 96 08/10/19 06:00 1.0 I&O- Last 24 Hours up to 6 AM 08/11/19 06:00 Intake Total 2460 ml Output Total 1450 ml Balance 1010 ml Laboratory Data 24H LABS Laboratory Tests 2 08/11/19 06:13: Nucleated Red Blood Cells % (auto) 0.0 CBC/BMP Laboratory Tests 08/11/19 06:13 Microbiology Microbiology 08/06/19 Stool Occult Blood (YANET) - Final, Complete MEGAN ALCARAZ MD Aug 11, 2019 18:46
[2019-08-11] MEDS: PANTOPRAZOLE 40MG TAB (PROTONIX) PO SCH (19:59)
[2019-08-11] MEDS: IRON SUCROSE 100 MG in NS 100 ML OVER 1 HR IV SCH (20:04)
[2019-08-11] MEDS: APIXABAN 5 MG TAB (ELIQUIS) PO SCH (20:05)
[2019-08-12] MEDS: MORPHINE 10MG/0.5ML ORAL CONCENTRATE SOLUTION U/D SL PRN ×2 (00:40→10:40)
[2019-08-12] MEDS: HYDROMORPHONE HCL 0.5 MG/ 0.5 ML SYRINGE (J1170 PER 1) IV PRN ×2 (01:50→07:16)
[2019-08-12 02:00] VITALS: BP 115/78
[2019-08-12 06:00] VITALS: BP 122/81
[2019-08-12] MEDS: SUCRALFATE SUSP 1GM/10ML UD PO SCH ×5 (07:30→20:17)
[2019-08-12 08:41] LABS: HEMATOCRIT 32.9 % (42.0-52.0); MEAN CORPUSCULAR HEMOGLOBIN 28.2 pg (27.0-33.0); MEAN CORPUSCULAR HGB CONC 30.4 g/dl (32.0-36.5); MEAN CORPUSCULAR VOLUME 92.7 fl (80.0-96.0); PLATELET COUNT, AUTOMATED 291 10^3/uL (150-450); RED BLOOD COUNT 3.55 10^6/uL (4.30-6.10); WHITE BLOOD COUNT 15.5 10^3/uL (4.0-10.0)
[2019-08-12] MEDS: SENOKOT S TAB PO SCH ×2 (08:45→20:21)
[2019-08-12] MEDS: MIRALAX *UNIT DOSE* 17GM PACKET PO SCH ×2 (08:45→20:20)
[2019-08-12] MEDS: SIMETHICONE 80 MG CHEW TAB PO SCH ×4 (08:53→20:21)
[2019-08-12] MEDS: fentaNYL 50 MCG/HR PATCH TD SCH (08:53)
[2019-08-12] MEDS: APIXABAN 5 MG TAB (ELIQUIS) PO SCH ×2 (08:54→20:18)
[2019-08-12] MEDS: atenoloL 25 MG TAB PO SCH (08:54)
[2019-08-12] MEDS: FENTANYL REMOVAL DOCUMENTATION MISC XX SCH (08:55)
[2019-08-12] MEDS ORDERED: [UNRECOGNIZED DRUG - REMARK] XX SCH (09:00)
[2019-08-12] MEDS ORDERED: fentaNYL 75 MCG/HR PATCH TOP SCH (09:00)
[2019-08-12 10:00] VITALS: BP 117/78
[2019-08-12] MEDS: HYDROmorphone 2 MG TAB PO PRN ×2 (12:24→15:48)
[2019-08-12] MEDS ORDERED: ELIQ5TAB PO (13:36)
[2019-08-12 14:00] VITALS: BP 117/75
[2019-08-12] MEDS ORDERED: FENTANYL REMOVAL DOCUMENTATION MISC XX ONE (14:00)
[2019-08-12] MEDS: SERTRALINE HCL 50 MG TAB PO SCH (15:48)
[2019-08-12] MEDS: METOCLOPRAMIDE 10 MG TAB PO PRN (17:13)
--- NOTE | 2019-08-12 17:54 | IPNPDOC ---
Subjective Date Seen The patient was seen on 08/12/19. Subjective Chief Complaint/HPI c/o uncontrolled pain Objective Physical Examination General Exam: Positive: Alert, Cooperative Eye Exam: Negative: Sclera icteric Neck Exam: Positive: Supple Chest Exam: Positive: Clear to auscultation Heart Exam: Positive: Rate Normal, Normal S1 Abdomen Exam: Positive: Normal bowel sounds Extremity Exam: Negative: Clubbing, Cyanosis, Edema Skin Exam: Positive: Other skin issue (stag 1 sacral decub, poa, Left AC site erythema/small hematoma); Negative: Rash Neuro Exam: Positive: Normal Speech Psych Exam: Positive: Mental status NL Assessment /Plan Assessment # Bilateral Pulmonary embolism - eliquis 10 mg bid x 7 days, then 5 mg bid - script sent to pharmacy to verify copay # Chronic pain syndrome - increase fentanyl 75 mcg q 72, add oral dilaudid # Coffe-ground emesis - GI evaluation unremarkable # Stage 3 esophageal carcinoma - will f/u with oncology as outpatient # Leukocytosis - improved, likely from ac site of previous piv # Gen weakness - consult PT to see if he qualifies for rehab placement Plan/VTE VTE Prophylaxis Ordered?: Yes (eliquis) VTE Exclusion Mechanical Proph: N/A:VTE Prophy Ordered VTE Exclusion Pharmacological: N/A:VTE Prophy Ordered VS, I&O, 24H, Fishbone Vital Signs/I&O Vital Signs Date Time Temp Pulse Resp B/P (MAP) Pulse Ox O2 Delivery O2 Flow Rate FiO2 08/12/19 16:18 16 08/12/19 14:00 98.5 89 117/75 (89) 98 Room Air 08/10/19 06:00 1.0 I&O- Last 24 Hours up to 6 AM 08/12/19 06:00 Intake Total 1625 ml Output Total 1700 ml Balance -75 ml Laboratory Data 24H LABS Laboratory Tests 2 08/12/19 08:25: Nucleated Red Blood Cells % (auto) 0.0 CBC/BMP Laboratory Tests 08/12/19 08:25 Microbiology Microbiology 08/06/19 Stool Occult Blood (YANET) - Final, Complete MEGAN ALCARAZ MD Aug 12, 2019 17:54
[2019-08-12] MEDS: PANTOPRAZOLE 40MG TAB (PROTONIX) PO SCH (20:18)
[2019-08-12 22:00] VITALS: BP 118/76
[2019-08-13 02:00] VITALS: BP 121/79
[2019-08-13 06:00] VITALS: BP 129/77
[2019-08-13] MEDS: SUCRALFATE SUSP 1GM/10ML UD PO SCH ×4 (07:30→20:30)
[2019-08-13] MEDS: SENOKOT S TAB PO SCH ×2 (07:36→20:31)
[2019-08-13] MEDS: SIMETHICONE 80 MG CHEW TAB PO SCH ×3 (07:36→20:30)
[2019-08-13] MEDS: MIRALAX *UNIT DOSE* 17GM PACKET PO SCH ×2 (07:36→20:30)
[2019-08-13] MEDS: APIXABAN 5 MG TAB (ELIQUIS) PO SCH ×2 (08:27→20:30)
[2019-08-13] MEDS: atenoloL 25 MG TAB PO SCH (08:28)
[2019-08-13 10:00] VITALS: BP 122/81
--- NOTE | 2019-08-13 12:36 | IPNPDOC ---
Subjective Date Seen The patient was seen on 08/13/19. Subjective Chief Complaint/HPI Luis is c/o feeling more fatigued and having poor concentration with the higher dose of fentanyl and oral Dilaudid. Reports pain is controlled. Objective Physical Examination General Exam: Positive: Alert, Cooperative, No Acute Distress Eye Exam: Negative: Sclera icteric Neck Exam: Positive: Supple Chest Exam: Positive: Clear to auscultation Heart Exam: Positive: Rate Normal, Normal S1 Abdomen Exam: Positive: Normal bowel sounds Extremity Exam: Negative: Clubbing, Cyanosis, Edema Skin Exam: Positive: Other skin issue (stag 1 sacral decub, poa, Left AC site erythema/small hematoma); Negative: Rash Neuro Exam: Positive: Normal Speech Psych Exam: Positive: Mental status NL Assessment /Plan Assessment # Bilateral Pulmonary embolism - eliquis 10 mg bid x 7 days, then 5 mg bid - script sent to pharmacy to verify copay # Chronic pain syndrome - decrease fentanyl 50 mcg q 72, and discontinue oral dilaudid, he's unable to tolerate the higher doses # Coffe-ground emesis - GI evaluation unremarkable # Stage 3 esophageal carcinoma - will f/u with oncology as outpatient # Leukocytosis - improved, likely from ac site of previous piv # Gen weakness - consult PT to see if he qualifies for rehab placement # Dispo: - awaiting rehab placement Plan/VTE VTE Prophylaxis Ordered?: Yes (eliquis) VTE Exclusion Mechanical Proph: N/A:VTE Prophy Ordered VTE Exclusion Pharmacological: N/A:VTE Prophy Ordered VS, I&O, 24H, Fishbone Vital Signs/I&O Vital Signs Date Time Temp Pulse Resp B/P (MAP) Pulse Ox O2 Delivery O2 Flow Rate FiO2 08/13/19 10:00 98.9 96 13 122/81 (95) 97 Room Air 08/10/19 06:00 1.0 I&O- Last 24 Hours up to 6 AM 08/13/19 06:00 Intake Total 780 ml Output Total 905 ml Balance -125 ml Laboratory Data 24H LABS Laboratory Tests 2 08/13/19 08:32: Bedside Glucose (Misc Panel) 125H Microbiology Microbiology 08/06/19 Stool Occult Blood (YANET) - Final, Complete MEGAN ALCARAZ MD Aug 13, 2019 12:36
[2019-08-13 14:00] VITALS: BP_SYST 106; BP_SYST 66; BP_DIAS 66
[2019-08-13] MEDS: MORPHINE 10MG/0.5ML ORAL CONCENTRATE SOLUTION U/D SL PRN ×2 (14:56→18:57)
[2019-08-13] MEDS: SERTRALINE HCL 50 MG TAB PO SCH (14:57)
--- NOTE | 2019-08-13 16:34 | REP ---
CT chest with IV contrast: History: Esophageal cancer. Enlarging nodule. Comparison chest CT study August [address] contrast dose: 75 mL of intravenous Isovue 370. CT findings: Digital senior backup administrator radiograph demonstrates a distal esophageal stent across the gastroesophageal junction, volume loss, increased density and air bronchograms in the left lower lobe distribution, and elevation of the left hemidiaphragm. There is new collapse and consolidation in the medial basal segment of the left lower lobe consistent with pneumonia. There are some patchy peribronchial opacities in the left upper lobe. The right lung remains clear. Air and fluid are seen throughout the esophagus including the stent. No hilar or mediastinal mass or adenopathy is observed. There is no evidence of pleural effusion. Some vascular calcification is seen in the aorta as before. No evidence of pulmonary embolus. There is a retrocrural lymph node which appears somewhat enlarged on the right unchanged from the August 06, 2019 study. This measures 19 mm in greatest diameter. Scattered pretracheal mediastinal lymph nodes are seen. There is right paratracheal adenopathy just below the thoracic inlet with a 2.3 x 2.2 cm note in this location. This is also unchanged from recent prior study. Impression: New atelectasis and volume loss left lower lobe consistent with pneumonia. Esophageal stent in place. Stable mediastinal adenopathy. Electronically Signed by Andrews Swanson MD 08/14/2019 09:55 A
[2019-08-13 18:00] VITALS: BP 109/71
[2019-08-13] MEDS: PANTOPRAZOLE 40MG TAB (PROTONIX) PO SCH (20:30)
[2019-08-13 22:00] VITALS: BP 96/60
[2019-08-14 02:00] VITALS: BP 106/81
[2019-08-14 06:00] VITALS: BP 96/60
[2019-08-14] MEDS: SUCRALFATE SUSP 1GM/10ML UD PO SCH ×4 (06:40→21:42)
[2019-08-14 06:54] LABS: HEMATOCRIT 31.9 % (42.0-52.0); MEAN CORPUSCULAR HEMOGLOBIN 28.9 pg (27.0-33.0); MEAN CORPUSCULAR HGB CONC 31.3 g/dl (32.0-36.5); MEAN CORPUSCULAR VOLUME 92.2 fl (80.0-96.0); PLATELET COUNT, AUTOMATED 359 10^3/uL (150-450); RED BLOOD COUNT 3.46 10^6/uL (4.30-6.10); WHITE BLOOD COUNT 12.7 10^3/uL (4.0-10.0)
[2019-08-14] MEDS: SENOKOT S TAB PO SCH ×2 (09:00→21:00)
[2019-08-14] MEDS: SIMETHICONE 80 MG CHEW TAB PO SCH ×3 (09:00→21:00)
[2019-08-14] MEDS: MIRALAX *UNIT DOSE* 17GM PACKET PO SCH ×2 (09:00→21:41)
[2019-08-14] MEDS: APIXABAN 5 MG TAB (ELIQUIS) PO SCH ×2 (09:23→21:42)
[2019-08-14] MEDS: AUGMENTIN 875 MG TAB PO SCH ×2 (09:23→21:43)
[2019-08-14] MEDS: atenoloL 25 MG TAB PO SCH (09:27)
[2019-08-14 10:00] VITALS: BP 97/68
[2019-08-14 14:00] VITALS: BP 102/66
--- NOTE | 2019-08-14 15:11 | IPNPDOC ---
Subjective Date Seen The patient was seen on 08/14/19. Subjective Chief Complaint/HPI Luis is fine this morning, his is at the bedside. His pain is controlled, he's not complaining of sob, cough. appetite is ok. he's been up and walking in the hallway. Objective Physical Examination General Exam: Positive: Alert, Cooperative, No Acute Distress Eye Exam: Negative: Sclera icteric Neck Exam: Positive: Supple Chest Exam: Positive: Clear to auscultation Heart Exam: Positive: Rate Normal, Normal S1 Abdomen Exam: Positive: Normal bowel sounds Extremity Exam: Negative: Clubbing, Cyanosis, Edema Skin Exam: Positive: Other skin issue (stag 1 sacral decub, poa, Left AC site erythema/small hematoma); Negative: Rash Neuro Exam: Positive: Normal Speech Psych Exam: Positive: Mental status NL Assessment /Plan Assessment # Bilateral Pulmonary embolism - eliquis 10 mg bid x 7 days, then 5 mg bid - script sent to pharmacy to verify copay # Chronic pain syndrome - fentanyl 50 mcg q 72 with roxanol for breakthrough pain # Coffe-ground emesis - GI evaluation unremarkable # Stage 3 esophageal carcinoma - will f/u with oncology as outpatient # LLL infiltrate with Leukocytosis - augmentin bid x 7 days # Gen weakness - consult PT to see if he qualifies for rehab placement # Dispo: - awaiting rehab placement Plan/VTE VTE Prophylaxis Ordered?: Yes (eliquis) VTE Exclusion Mechanical Proph: N/A:VTE Prophy Ordered VTE Exclusion Pharmacological: N/A:VTE Prophy Ordered VS, I&O, 24H, Fishbone Vital Signs/I&O Vital Signs Date Time Temp Pulse Resp B/P (MAP) Pulse Ox O2 Delivery O2 Flow Rate FiO2 08/14/19 14:44 88 13 98 Room Air 08/14/19 10:00 98.3 97/68 (78) 08/10/19 06:00 1.0 I&O- Last 24 Hours up to 6 AM 08/14/19 06:00 Intake Total 600 ml Output Total 650 ml Balance -50 ml Laboratory Data 24H LABS Laboratory Tests 2 08/14/19 06:19: Nucleated Red Blood Cells % (auto) 0.0 CBC/BMP Laboratory Tests 08/14/19 06:19 Microbiology Microbiology 08/06/19 Stool Occult Blood (YANET) - Final, Complete MEGAN ALCARAZ MD Aug 14, 2019 15:11
[2019-08-14] MEDS: GRANISETRON 3.1 MG TOP SCH (16:00)
[2019-08-14] MEDS: SERTRALINE HCL 50 MG TAB PO SCH (16:10)
[2019-08-14] MEDS: [UNRECOGNIZED DRUG - REMARK] XX SCH (16:12)
[2019-08-14] MEDS: MORPHINE 10MG/0.5ML ORAL CONCENTRATE SOLUTION U/D SL PRN (17:08)
[2019-08-14 18:00] VITALS: BP 105/62
[2019-08-14] MEDS: PANTOPRAZOLE 40MG TAB (PROTONIX) PO SCH (21:43)
[2019-08-14 22:00] VITALS: BP 102/63
[2019-08-15 02:00] VITALS: BP 124/79
[2019-08-15 06:00] VITALS: BP 124/79
[2019-08-15] MEDS: SUCRALFATE SUSP 1GM/10ML UD PO SCH ×5 (07:30→20:36)
[2019-08-15] MEDS: SIMETHICONE 80 MG CHEW TAB PO SCH ×3 (08:18→20:32)
[2019-08-15] MEDS: MIRALAX *UNIT DOSE* 17GM PACKET PO SCH ×2 (08:18→20:37)
[2019-08-15] MEDS: SENOKOT S TAB PO SCH ×2 (08:21→20:32)
[2019-08-15] MEDS: AUGMENTIN 875 MG TAB PO SCH ×2 (08:21→20:36)
[2019-08-15] MEDS: APIXABAN 5 MG TAB (ELIQUIS) PO SCH ×2 (08:22→20:37)
[2019-08-15] MEDS: atenoloL 25 MG TAB PO SCH (08:22)
[2019-08-15] MEDS ORDERED: fentaNYL 50 MCG/HR PATCH TOP SCH (09:00)
[2019-08-15] MEDS ORDERED: FENTANYL REMOVAL DOCUMENTATION MISC XX SCH (09:00)
[2019-08-15] MEDS ORDERED: FENTANYL REMOVAL DOCUMENTATION MISC XX ONE (09:00)
[2019-08-15 10:00] VITALS: BP 127/80
[2019-08-15] MEDS: MORPHINE 10MG/0.5ML ORAL CONCENTRATE SOLUTION U/D SL PRN (10:04)
--- NOTE | 2019-08-15 12:55 | IPNPDOC ---
Subjective Date Seen The patient was seen on 08/15/19. Subjective Chief Complaint/HPI Pain is controlled, appetite ok. Denies sob. Objective Physical Examination General Exam: Positive: Alert, No Acute Distress Eye Exam: Positive: PERRLA; Negative: Sclera icteric ENT Exam: Positive: Mucous membr. moist/pink Neck Exam: Positive: Supple Chest Exam: Positive: Clear to auscultation Heart Exam: Positive: Rate Normal, Normal S1, Normal S2 Abdomen Exam: Positive: Normal bowel sounds Extremity Exam: Negative: Clubbing, Cyanosis, Edema Skin Exam: Positive: Other skin issue (stag 1 sacral decub, poa, Left AC site erythema/small hematoma); Negative: Rash Neuro Exam: Positive: Normal Speech Psych Exam: Positive: Mental status NL Assessment /Plan Assessment # Bilateral Pulmonary embolism - eliquis 10 mg bid x 7 days, then 5 mg bid - script sent to pharmacy to verify copay # Chronic pain syndrome - fentanyl 50 mcg q 72 with roxanol for breakthrough pain # Coffe-ground emesis - GI evaluation unremarkable # Stage 3 esophageal carcinoma - will f/u with oncology as outpatient # LLL infiltrate with Leukocytosis - augmentin bid x 7 days # Gen weakness - PT to see if he qualifies for rehab placement in am # Dispo: - awaiting rehab placement Plan/VTE VTE Prophylaxis Ordered?: Yes (eliquis) VTE Exclusion Mechanical Proph: N/A:VTE Prophy Ordered VTE Exclusion Pharmacological: N/A:VTE Prophy Ordered VS, I&O, 24H, Fishbone Vital Signs/I&O Vital Signs Date Time Temp Pulse Resp B/P (MAP) Pulse Ox O2 Delivery O2 Flow Rate FiO2 08/15/19 10:41 16 08/15/19 10:04 99 Room Air 08/15/19 10:00 97.9 94 127/80 (96) 08/10/19 06:00 1.0 I&O- Last 24 Hours up to 6 AM 08/15/19 06:00 Intake Total 1060 ml Output Total 300 ml Balance 760 ml Laboratory Data 24H LABS Laboratory Tests 2 08/15/19 11:36: Bedside Glucose (Misc Panel) 117H Microbiology Microbiology 08/06/19 Stool Occult Blood (YANET) - Final, Complete MEGAN ALCARAZ MD Aug 15, 2019 12:55
[2019-08-15] MEDS: METOCLOPRAMIDE 10 MG TAB PO PRN (13:31)
[2019-08-15 14:00] VITALS: BP 123/79
[2019-08-15] MEDS: SERTRALINE HCL 50 MG TAB PO SCH (16:22)
[2019-08-15] MEDS: GRANISETRON 3.1 MG TOP SCH (17:03)
[2019-08-15 18:00] VITALS: BP 120/67
[2019-08-15] MEDS: PANTOPRAZOLE 40MG TAB (PROTONIX) PO SCH (20:37)
[2019-08-15 22:00] VITALS: BP 107/62
[2019-08-16 06:00] VITALS: BP 110/75
[2019-08-16] MEDS: SUCRALFATE SUSP 1GM/10ML UD PO SCH ×2 (07:30→12:00)
[2019-08-16] MEDS: APIXABAN 5 MG TAB (ELIQUIS) PO SCH (08:09)
[2019-08-16] MEDS: AUGMENTIN 875 MG TAB PO SCH (08:09)
[2019-08-16 08:11] VITALS: BP 108/74
[2019-08-16] MEDS: atenoloL 25 MG TAB PO SCH (08:11)
[2019-08-16] MEDS: MIRALAX *UNIT DOSE* 17GM PACKET PO SCH (08:11)
[2019-08-16] MEDS: SENOKOT S TAB PO SCH (08:12)
[2019-08-16] MEDS: SIMETHICONE 80 MG CHEW TAB PO SCH (08:12)
[2019-08-16 10:00] VITALS: BP 112/76
--- NOTE | 2019-08-16 12:30 | IPNPDOC ---
Subjective Date Seen The patient was seen on 08/16/19. Subjective Chief Complaint/HPI Pain is controlled, does not feel narcotic haze this morning. Breathing non- labored on RA. Had large BM this am. Tolerating diet. Objective Physical Examination General Exam: Positive: Alert, No Acute Distress Eye Exam: Positive: PERRLA; Negative: Sclera icteric ENT Exam: Positive: Mucous membr. moist/pink Neck Exam: Positive: Supple Chest Exam: Positive: Clear to auscultation Heart Exam: Positive: Rate Normal, Normal S1, Normal S2 Abdomen Exam: Positive: Normal bowel sounds Extremity Exam: Negative: Clubbing, Cyanosis, Edema Skin Exam: Positive: Other skin issue (stag 1 sacral decub, poa, Left AC site erythema/small hematoma); Negative: Rash Neuro Exam: Positive: Normal Speech Psych Exam: Positive: Mental status NL Assessment /Plan Assessment # Bilateral Pulmonary embolism - eliquis 10 mg bid # 5/7 days, then 5 mg bid - script sent to pharmacy to verify copay ($30) # Chronic pain syndrome - fentanyl 50 mcg q 72 with roxanol for breakthrough pain # Coffe-ground emesis - GI evaluation unremarkable # Stage 3 esophageal carcinoma - will f/u with oncology as outpatient # LLL infiltrate with Leukocytosis - augmentin bid x 9 more doses # Gen weakness - PT to see if he qualifies for rehab placement in am # Stage 1 sacral decub POA # Dispo: - Discharge home with home health if clears PT Plan/VTE VTE Prophylaxis Ordered?: Yes (eliquis) VTE Exclusion Mechanical Proph: N/A:VTE Prophy Ordered VTE Exclusion Pharmacological: N/A:VTE Prophy Ordered VS, I&O, 24H, Fishbone Vital Signs/I&O Vital Signs Date Time Temp Pulse Resp B/P (MAP) Pulse Ox O2 Delivery O2 Flow Rate FiO2 08/16/19 08:11 98 108/74 08/16/19 06:00 97.8 16 96 Room Air 08/10/19 06:00 1.0 I&O- Last 24 Hours up to 6 AM 08/16/19 06:00 Intake Total 1340 ml Output Total 800 ml Balance 540 ml Laboratory Data Microbiology Microbiology 08/06/19 Stool Occult Blood (YANET) - Final, Complete MEGAN ALCARAZ MD Aug 16, 2019 12:30
[2019-08-16] MEDS ORDERED: SUCR1ORA PO (12:55)
[2019-08-16] MEDS ORDERED: SENN-52 PO (12:55)
[2019-08-16] MEDS ORDERED: AMOX875T2 PO (12:55)
[2019-08-16] MEDS ORDERED: Morphine Sulfate Oral Conc. SL (12:55)
[2019-08-16] MEDS ORDERED: SANC3.1D TOP (13:25)
[2019-08-16 14:00] VITALS: BP 114/71
--- NOTE | 2019-08-18 09:19 | DSES ---
DATE OF ADMISSION: 08/05/2019 DATE OF DISCHARGE: 08/16/2019 DISCHARGE DIAGNOSES: 1. Bilateral pulmonary emboli. 2. Chronic malignant pain syndrome. 3. Status post normal esophagogastroduodenoscopy (EGD). 4. Stage III esophageal carcinoma with esophageal stent. 5. Left lower infiltrate with leukocytosis likely community acquired pneumonia. 6. Generalized weakness. 7. Stage I sacral decubitus present on admission. PROCEDURES PERFORMED DURING THIS HOSPITALIZATION: Esophagogastroduodenoscopy (EGD). CONSULTANTS: Dr. Calix, oncology. Dr. Cool, gastroenterology. Dr. Slater, general surgery. Pain clinic. DISPOSITION: Patient was discharged home with outpatient physical therapy. Followup labs pending at the time of discharge: None. DISCHARGE INSTRUCTIONS: Patient is instructed to followup with Dr. Calix in approximately 1-2 weeks' time for the next scheduled visit. He is to take two additional days of Eliquis 10 mg twice a day and then it is to revert to 5 mg twice a day thereafter for pulmonary embolus (PE) treatment. He is to take nine more tablets of Augmentin 875 mg twice a day for treatment of his left lower lobe pneumonia. He is to followup with his primary care provider (PCP) as previously scheduled. He was advised not to drive while taking any narcotic medications. CONDITION AT DISCHARGE: Improved with controlled malignant pain syndrome. RELEVANT LABS: White blood cell count 12.7, hemoglobin 10, hematocrit 31, platelet counts 359. Sodium 139, potassium 4.5, chloride 103, bicarbonate 32, BUN 6, creatinine 0.39, glucose 109, CA level 5.1, lipase 83, amylase 29. PT 12.7, INR 0.98, PTT 36. Glucose 117. Imaging studies obtained during the patient's hospital stay were a CT of the abdomen and pelvis. Please reference individual report for detail. CTA of the chest showed bilateral pulmonary infiltrates. He had a radionuclide ventriculography which showed that he had normal left ventricular ejection fraction with no wall motion abnormalities. He had a bilateral lower extremity Doppler which showed no evidence of deep venous thrombosis. He had a repeat CT scan of the chest which showed a new atelectasis and volume loss in the left lower lobe consistent with pneumonia. DISCHARGE MEDICATIONS: - Amoxicillin 875 twice a day for nine doses - Eliquis 10 mg twice a day for 2 days, then the patient is to take 5 mg twice a day thereafter. - Roxanol 5 mg sublingual every 2 hours as needed for pain - Senna plus tablet, two tablets daily twice a day - Carafate 1 gram at bedtime - Tylenol 25 mg daily - Duragesic patch 50 mcg every 72 hours - Sancuso one patch weekly - EMLA cream as directed - Ritalin 5 mg twice a day - Reglan 10 mg three times a day - Protonix 20 mg twice a day - MiraLAX 119 gram powder as needed for constipation - sertraline 50 mg daily - simethicone 180 mg three times a day HOSPITAL COURSE: Mr. Fuller is a 53-year-old gentleman with stage III esophageal cancer who presented as a direct admit from Dr. Calix's office for uncontrolled abdominal pain. He was admitted to the hospitalist service. The pain clinic was consulted and recommended starting him in IV Dilaudid and Roxanol as well as fentanyl patches. This seemed to control his symptoms. CT of the abdomen and pelvis was done upon admission, which questioned whether patient had some gastric outlet obstruction. Dr. Salter was consulted and evaluated the patient who did not feel that this was the case. Patient was maintained on oral Reglan and was resumed on a diet which he tolerated quite well. The patient underwent CT scan of the chest and was found to have bilateral pulmonary embolus. He was started on anticoagulation and was concerned that he could be having some coffee-ground emesis. Dr. Cool was consulted. He underwent EGD which did not show any active bleeding. He was continued on anticoagulation without interruption or any noticeable drop in his hemoglobin level. During his hospitalization, patient was noted to be anemic at baseline likely from his malignancy and was treated with IV iron. Patient was seen during this hospitalization by physical therapy (PT) and occupational therapy (OT) for generalized weakness. He was subsequently cleared to go home from their standpoint. He did have an episode this past weekend where his white count did go to 22,000. He was not clinically symptomatic. CT scan of his chest was done and this showed that he had pneumonia and was placed on oral antibiotics with improvement in white blood cell count. On the day of discharge, he is afebrile with stable vital signs and we discharged home in stable condition. A total of 30 minutes spent completing all discharge paperwork. [facility]OS[facility]ITALAlthea
== END 2019-08-16 15:50 | disposition home or self-care (01) | DRG 175 ==
LOC: M ED 15:02 → M ED INP 19:09 → ENRESERVTM 21:20 → ENRESERVDT 21:20 → M MSPAV 22:35
PROVIDERS: ADMIT Internal Medicine; ATTEND Internal Medicine
PROC: 0DJ08ZZ Inspection of Upper Intestinal Tract, Via Natural or Artificial Opening Endoscopic (ICD-10-PCS; principal; 2019-08-09 17:00)
DX: I26.99 Other pulmonary embolism without acute cor pulmonale (principal); K85.90 Acute pancreatitis without necrosis or infection, unspecified; J18.9 Pneumonia, unspecified organism; C15.9 Malignant neoplasm of esophagus, unspecified; C78.89 Secondary malignant neoplasm of other digestive organs; K31.1 Adult hypertrophic pyloric stenosis; E46 Unspecified protein-calorie malnutrition; G89.3 Neoplasm related pain (acute) (chronic); F17.200 Nicotine dependence, unspecified, uncomplicated; Z96.89 Presence of other specified functional implants; Z92.3 Personal history of irradiation; Z92.21 Personal history of antineoplastic chemotherapy; I10 Essential (primary) hypertension; D63.8 Anemia in other chronic diseases classified elsewhere; K86.9 Disease of pancreas, unspecified; Z79.899 Other long term (current) drug therapy; Z88.8 Allergy status to other drugs, medicaments and biological substances; L89.151 Pressure ulcer of sacral region, stage 1; D72.829 Elevated white blood cell count, unspecified; K21.9 Gastro-esophageal reflux disease without esophagitis; Z88.5 Allergy status to narcotic agent; R53.1 Weakness

== ENCOUNTER → 2019-08-24 | Outpatient (CLI) | payer OTHER ==
[~2019-08-24] MED LIST changes: +AMOX875T2 PO; +ATIV1TAB7 PO; +DURA50DI2 TD; +ELIQ5TAB PO; -EMLA CREAM 5GM (LIDOCAINE/PRILOCAINE) TOP SCH; +ENOX30IN3 SC; +ENOX40IN3 SC; -GRANISETRON 3.1 MG TOP SCH; +LEVA1TAB2 PO; +MIRA3350 PO; +MORP1TAB21 PO; +Morphine Sulfate Oral Conc. SL; +OXYC-517 PO; +OXYC20TA40 PO; +REGL10TA6 PO; +RITA5TAB PO; +SENN-52 PO; +SUCR1ORA PO
--- NOTE | 2019-08-25 09:57 | REP ---
PET/CT: HISTORY: Monitoring esophageal carcinoma. 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 Metastatic adenopathy and diagnosis. Nonresectable. Chemotherapy. COMPARISONS: Comparison PET/CT images are from [facility] dated December 23, 2018 and July 22, 2018. Comparison CT study of the chest is from August 13, 2019. TECHNIQUE: Approximately 45 minutes following the intravenous injection of a 9.11 mCi dose of F-18 FDG, three-dimensional PET scintigraphy is acquired from the skull base to the proximal thighs. Triplanar noncontrast CT scanning is acquired through the same anatomic range for attenuation correction, and image registration with scan parameters optimized to minimize radiation exposure to the patient. PET scintigraphy and CT datasets were fused and displayed on a workstation with multiplanar and projection display capability. PET/CT FINDINGS: The patient was unable to lie supine for the scan and accordingly was scanned in a left side down steep oblique decubitus position. There is hypermetabolic activity again noted at the site of the primary distal esophageal tumor circumferentially around the esophageal stent. Maximum standard uptake value in the disease at this site is from 5.8 to 7.2. In addition, there is bilateral supraclavicular hypermetabolic lymphadenopathy, SUV 5.0 to 5.75 on the left and right. There is right superior mediastinal hypermetabolic adenopathy, 5.35. There is a small hypermetabolic lymph node in the left inferior hilus, 4.84. There are several left lung base nodular opacities showing mild hypermetabolic activity, 3.88. There are two foci of hypermetabolic uptake in the liver, 7.83 and 4.13. There is hypermetabolic celiac axis and periaortic adenopathy with maximum standard uptake value ranging 5.82 to 5.96. Minimal uptake is seen at the sacrococcygeal junction with overlying skin irritation. There is apparently a history of a sacral decubitus. IMPRESSION: There is evidence of progressive disease with hypermetabolic supraclavicular, intrathoracic, upper abdominal and retroperitoneal adenopathy. There are two hypermetabolic liver lesions. Electronically Signed by Andrews Swanson MD 08/25/2019 07:27 P
== END ==
LOC: M PLARAD 15:32
PROVIDERS: ATTEND Internal Medicine Hematology & Oncology
DX: C15.8 Malignant neoplasm of overlapping sites of esophagus (principal); R93.2 Abnormal findings on diagnostic imaging of liver and biliary tract; R59.9 Enlarged lymph nodes, unspecified; R93.89 Abnormal findings on diagnostic imaging of other specified body structures; R93.5 Abnormal findings on diagnostic imaging of other abdominal regions, including retroperitoneum
CPT/HCPCS: 78815; A9552

== ENCOUNTER 2019-09-22 14:14 | Emergency (ER) | payer OTHER ==
[~2019-09-22] VITALS: Ht 182.9 cm; Wt 68.2 kg
[~2019-09-22 14:14] MED LIST changes: +ATIV1TAB10 PO
[2019-09-22] MEDS ORDERED: COLA100C5 PO (14:53)
[2019-09-22 15:02] LABS: HEMATOCRIT 34.8 % (42.0-52.0); HEMOGLOBIN 10.4 g/dl (13.5-17.5); MEAN CORPUSCULAR HEMOGLOBIN 28.7 pg (27.0-33.0); MEAN CORPUSCULAR HGB CONC 29.9 g/dl (32.0-36.5); MEAN CORPUSCULAR VOLUME 96.1 fl (80.0-96.0); RED BLOOD COUNT 3.62 10^6/uL (4.30-6.10); WHITE BLOOD COUNT 14.1 10^3/uL (4.0-10.0)
[2019-09-22 15:03] LABS: BASO # 0.1 10^3/uL (0.0-0.2); BASO % 0.5 % (0.0-1.0); EOS # 0.1 10^3/uL (0.0-0.5); EOS % 0.9 % (0.0-3.0); LYMPH # 0.6 10^3/uL (1.5-5.0); LYMPH % 4.3 % (24.0-44.0); MONO # 1.1 10^3/uL (0.0-0.8); MONO % 7.9 % (0.0-5.0); NEUTROPHILS # 11.9 10^3/uL (1.5-8.5); NEUTROPHILS % 84.4 % (36.0-66.0); PLATELET COUNT, AUTOMATED 346 10^3/uL (150-450)
--- NOTE | 2019-09-22 15:15 | REP ---
Clinical: Altered mental status. History of esophageal carcinoma. Technique: Axial noncontrast images from the skull base to the vertex with coronal re-formations. Findings: Ventricles, sulci, and cisterns are symmetric and normal. Zarate-white differentiation is maintained. No acute intracranial hemorrhage, mass or mass effect. No extra-axial fluid collection. Calvarium is intact. Paranasal sinuses and mastoid air cells are clear. Impression: No acute intracranial pathology or trauma/injury appreciated. Electronically Signed by Harman Rodriguez MD 09/22/2019 03:06 P
[2019-09-22 15:30] LABS: ALBUMIN 2.9 GM/DL (3.2-5.2); ALT/SGPT 18 U/L (12-78); BILIRUBIN,DIRECT < 0.1 MG/DL (0.0-0.2); BILIRUBIN,TOTAL 0.2 MG/DL (0.2-1.0); BLOOD UREA NITROGEN 12 MG/DL (7-18); CALCIUM LEVEL 8.3 MG/DL (8.5-10.1); CARBON DIOXIDE LEVEL 32 MEQ/L (21-32); CHLORIDE LEVEL 102 MEQ/L (98-107); CREATININE FOR GFR 0.52 MG/DL (0.70-1.30); GLOMERULAR FILTRATION RATE > 60.0 (>56); GLUCOSE, FASTING 115 MG/DL (70-100); LIPASE 45 U/L (73-393); POTASSIUM SERUM 3.9 MEQ/L (3.5-5.1); SODIUM LEVEL 140 MEQ/L (136-145); TOTAL PROTEIN 6.2 GM/DL (6.4-8.2)
[2019-09-22] MEDS ORDERED: ISOVUE-370 76% 100ML VIAL (Q9967) As Ordered ONE (16:18)
--- NOTE | 2019-09-22 17:07 | REP ---
Clinical: Hypotension. History of esophageal carcinoma. Technique: Axial contrast enhanced images from the thoracic inlet to the upper abdomen using pulmonary embolus technique with multiplanar re-formations. 75 ml Isovue 370 intravenous contrast material administered without complication. Findings: Satisfactory enhancement of the pulmonary vasculature is achieved and no filling defects are identified to suggest pulmonary embolus. Early moderate left basilar atelectasis noted. Mild chronic emphysematous changes are suggested. Thoracic aorta without aneurysm or dissection. Heart and pericardium are normal. No effusion. No pneumothorax. The esophageal stent is identified extending into the stomach and intraluminal material is noted. There is also surrounding esophageal soft tissue which is compatible with the given history of esophageal carcinoma. Small precarinal lymph nodes measure up to 8 mm and are nonspecific. Surrounding musculoskeletal structures demonstrate age-related changes without acute osseous abnormality. Bilateral adrenal glands appear grossly normal. Impression: 1. No pulmonary embolus identified. 2. Moderate left basilar atelectasis. 3. Esophageal stent with intraluminal soft tissue material is nonspecific although extension of esophageal cancer through the stent cannot be excluded. Surrounding esophageal soft tissue is also noted and consistent with the given history of carcinoma. Electronically Signed by Harman Rodriguez MD 09/22/2019 04:59 P
[2019-09-22 17:30] VITALS: BP 110/65
[2019-09-22] MEDS ORDERED: MORP60TA PO (17:40)
[2019-09-22] MEDS ORDERED: SENN-50 PO (17:40)
[2019-09-22] MEDS ORDERED: SUCR1ORA PO (17:40)
[2019-09-22] MEDS ORDERED: ELIQ5TAB PO (17:40)
[2019-09-22] MEDS ORDERED: MORP20SOL SL (17:40)
[2019-09-22] MEDS ORDERED: SANC3.1D TD (17:40)
--- NOTE | 2019-09-23 15:53 | ED PDOC ---
Post-Departure Follow-Up dr dayna butler faxed formal report of cta chest for fu [place] Storm MD Sep 23, 2019 15:53
== END 2019-09-22 18:02 | disposition left against medical advice (07) ==
LOC: M ED 14:14
DX: I95.1 Orthostatic hypotension (principal); C15.9 Malignant neoplasm of esophagus, unspecified; Z53.21 Procedure and treatment not carried out due to patient leaving prior to being seen by health care provider; J98.11 Atelectasis; Z96.9 Presence of functional implant, unspecified; I10 Essential (primary) hypertension; Z86.711 Personal history of pulmonary embolism; F17.200 Nicotine dependence, unspecified, uncomplicated; Z79.01 Long term (current) use of anticoagulants; Z79.891 Long term (current) use of opiate analgesic; Z79.899 Other long term (current) drug therapy; Z88.6 Allergy status to analgesic agent
CPT/HCPCS: 70450; 71275; 80048; 80076; 83690; 85025; 87040; 93041; 99285; Q9967

== ENCOUNTER 2019-10-08 16:50 | Emergency (ER) | payer OTHER ==
[~2019-10-08] VITALS: Ht 182.9 cm; Wt 68.2 kg
[~2019-10-08 16:50] MED LIST changes: +COLA100C5 PO; +MORP20SOL SL; +MORP60TA PO; +SANC3.1D TD; +SENN-50 PO
[2019-10-08] MEDS ORDERED: DICYCLOMINE 10 MG CAP PO ONE (17:30)
[2019-10-08] MEDS ORDERED: diazePAM 10MG/2ML SYRINGE (J3360 PER 5MG) IV ONE (17:45)
[2019-10-08] MEDS ORDERED: NS 1,000 ML IV ONE ×2 (17:45→20:45)
[2019-10-08 18:05] LABS: BASO % 0.2 % (0.0-1.0); EOS # 0.1 10^3/uL (0.0-0.5); EOS % 0.7 % (0.0-3.0); HEMATOCRIT 32.4 % (42.0-52.0); HEMOGLOBIN 9.8 g/dl (13.5-17.5); LYMPH # 0.8 10^3/uL (1.5-5.0); LYMPH % 4.6 % (24.0-44.0); MEAN CORPUSCULAR HEMOGLOBIN 28.1 pg (27.0-33.0); MEAN CORPUSCULAR HGB CONC 30.2 g/dl (32.0-36.5); MEAN CORPUSCULAR VOLUME 92.8 fl (80.0-96.0); MONO # 1.3 10^3/uL (0.0-0.8); MONO % 7.6 % (0.0-5.0); NEUTROPHILS # 14.5 10^3/uL (1.5-8.5); NEUTROPHILS % 82.9 % (36.0-66.0); PLATELET COUNT, AUTOMATED 334 10^3/uL (150-450); RED BLOOD COUNT 3.49 10^6/uL (4.30-6.10); WHITE BLOOD COUNT 17.5 10^3/uL (4.0-10.0)
[2019-10-08 18:17] LABS: INFLUENZA A AMPLIFICATION NEGATIVE (NEGATIVE); INFLUENZA B AMPLIFICATION NEGATIVE (NEGATIVE)
[2019-10-08 18:40] LABS: ALBUMIN 2.4 GM/DL (3.2-5.2); ALT/SGPT 18 U/L (12-78); BILIRUBIN,DIRECT < 0.1 MG/DL (0.0-0.2); BILIRUBIN,TOTAL 0.3 MG/DL (0.2-1.0); LIPASE 57 U/L (73-393); TOTAL PROTEIN 5.5 GM/DL (6.4-8.2)
[2019-10-08] MEDS ORDERED: fentaNYL 100 MCG/2 ML INJECTION (J3010) IV ONE (19:00)
--- NOTE | 2019-10-08 19:00 | REP ---
HISTORY: Diarrhea. The frontal view of the chest shows a central venous catheter, the tip of which is in the superior vena cava. There is mild elevation of the diaphragmatic surface of the left lung secondary to bowel gas. This causes minimal left basilar subsegmental atelectatic change. There is no free subdiaphragmatic air. Supine and upright views of the abdomen show no evidence of free intraperitoneal air. The intestinal gas pattern is nonspecific. There is a distal esophageal graft likely Silastic. IMPRESSION: No acute disease. Findings as described above. Electronically Signed by Eb Oro DO 10/08/2019 07:12 P
[2019-10-08] MEDS ORDERED: PERC5TAB12 PO (20:22)
[2019-10-08] MEDS ORDERED: MORPHINE 4 MG/ML 1ML VIAL/SYRINGE (J2270) IV ONE (21:00)
[2019-10-08 21:38] VITALS: BP 110/55
== END 2019-10-08 21:52 | disposition home or self-care (01) ==
LOC: M ED 16:50
DX: C15.9 Malignant neoplasm of esophagus, unspecified (principal); G89.29 Other chronic pain; R10.9 Unspecified abdominal pain; R19.7 Diarrhea, unspecified; I95.9 Hypotension, unspecified; K59.00 Constipation, unspecified; F17.200 Nicotine dependence, unspecified, uncomplicated; Z96.89 Presence of other specified functional implants; Z93.1 Gastrostomy status; Z45.2 Encounter for adjustment and management of vascular access device; Z79.82 Long term (current) use of aspirin; Z79.899 Other long term (current) drug therapy; Z88.6 Allergy status to analgesic agent
CPT/HCPCS: 36415; 74021; 80047; 80076; 81001; 83690; 85025; 87086; 87502; 94760; 96361; 96374; 96375; 99284; J2270; J3010; J3360

== ENCOUNTER 2019-10-24 06:25 | Emergency (ER) | payer OTHER ==
[~2019-10-24] VITALS: Ht 182.9 cm; Wt 68.2 kg
[~2019-10-24 06:25] MED LIST changes: +PERC5TAB12 PO
[2019-10-24] MEDS ORDERED: KETOROLAC 30 MG/ML 1ML VIAL IV ONE (07:00)
[2019-10-24] MEDS ORDERED: NS 500 ML IV ONE (07:00)
[2019-10-24] MEDS ORDERED: ONDANSETRON 4MG/2ML VIAL IV ONE (07:00)
[2019-10-24 07:32] LABS: BASO % 0.2 % (0.0-1.0); EOS # 0.1 10^3/uL (0.0-0.5); EOS % 0.7 % (0.0-3.0); HEMATOCRIT 27.6 % (42.0-52.0); HEMOGLOBIN 8.4 g/dl (13.5-17.5); LYMPH # 0.6 10^3/uL (1.5-5.0); LYMPH % 6.7 % (24.0-44.0); MEAN CORPUSCULAR HEMOGLOBIN 26.7 pg (27.0-33.0); MEAN CORPUSCULAR HGB CONC 30.4 g/dl (32.0-36.5); MEAN CORPUSCULAR VOLUME 87.6 fl (80.0-96.0); MONO # 0.7 10^3/uL (0.0-0.8); MONO % 8.4 % (0.0-5.0); NEUTROPHILS # 7.1 10^3/uL (1.5-8.5); PLATELET COUNT, AUTOMATED 300 10^3/uL (150-450); RED BLOOD COUNT 3.15 10^6/uL (4.30-6.10); WHITE BLOOD COUNT 8.6 10^3/uL (4.0-10.0)
[2019-10-24] MEDS ORDERED: ISOVUE-370 76% 100ML VIAL As Ordered ONE (07:46)
[2019-10-24] MEDS: HYDROMORPHONE HCL 0.5 MG/ 0.5 ML SYRINGE (J1170 PER 1) IV PRN ×2 (08:00→12:08)
[2019-10-24 08:11] LABS: ALBUMIN 2.5 GM/DL (3.2-5.2); ALT/SGPT 24 U/L (12-78); BILIRUBIN,DIRECT < 0.1 MG/DL (0.0-0.2); BILIRUBIN,TOTAL 0.2 MG/DL (0.2-1.0); LIPASE 25 U/L (73-393)
--- NOTE | 2019-10-24 08:49 | REP ---
CHEST, TWO VIEWS: Two views of the chest is performed and compared to a prior study of 10/08/2019. There is no evidence of acute infiltrate. There is elevation of the left hemidiaphragm unchanged. The heart is not enlarged. Mediastinal silhouette is unchanged. There is a distal esophageal stent. There is a right central venous catheter with the tip in the superior vena cava. There are degenerative changes of the spine. There is no radiographic evidence of metastatic disease to the visualized osseous structures. Electronically Signed by Jered Zarate MD 10/24/2019 09:46 P
[2019-10-24] MEDS: GASTROGRAFIN SOLUTION 30ML PO SCH ×2 (09:13→09:46)
--- NOTE | 2019-10-24 11:59 | REP ---
CT ABDOMEN AND PELVIS WITH ORAL AND IV CONTRAST: TECHNIQUE: Axial contrast enhanced images from the lung bases to the pubic symphysis using 100 mL Isovue 370 intravenous contrast material with multiplanar reformations. COMPARISON: 08/05/2019 In the visualized lung bases no new infiltrate is seen. In the liver, a mass in the left lobe has mildly increased in size measuring 3.5 cm in diameter. There is also increased size of tumor anterior to the very proximal aspect of the abdominal aorta adjacent to the inferior aspect of the gastroesophageal junction. There is also increased retroperitoneal adenopathy in the periaortic region more inferiorly. The nodule in the inferior left lobe of the liver is not significantly changed. Gastroesophageal stent is again seen with mass-like thickening of the gastroesophageal junction. There is encasement of the celiac artery and its branches with increased narrowing of these arterial structures. The left portal vein is invaded and occluded, a new finding. There is resultant geographic mild hypodensity involving the left lobe of the liver due to perfusion alterations. Spleen is unremarkable. Adrenals are unremarkable. Multiple tiny pancreatic calcifications are compatible with chronic pancreatitis. There is encasement of the renal arteries bilaterally, which appear slightly narrowed. Otherwise, the kidneys appear unremarkable. There is no hydronephrosis. There is no abdominal aortic aneurysm. No free air is seen. There is no other evidence of bowel wall thickening. Left perianal low density soft tissue structure appears slightly increased in size 5.6 cm in diameter. There are degenerative changes of the spine. IMPRESSION: Mild increase in size of pre-aortic tumor in the upper abdomen adjacent to the gastroesophageal junction. There is increased size of an adjacent left lobe liver mass. There is also a mild increase in the size of more inferior retroperitoneal adenopathy along the abdominal aorta. There is new obliteration and occlusion of the left portal vein causing altered perfusion in the left lobe of the liver. There is encasement and narrowing of the celiac artery and its branches. There is encasement of the renal arteries bilaterally with mild narrowing. No other new findings. Electronically Signed by Jered Zarate MD 10/24/2019 09:55 P
[2019-10-24] MEDS ORDERED: HYDR1LIQ PO (12:04)
[2019-10-24 12:08] VITALS: BP 102/60
[2019-10-25] MEDS ORDERED: FENT50DI5 TD (14:51)
== END 2019-10-24 12:27 | disposition home or self-care (01) ==
LOC: M ED 06:25
DX: G89.3 Neoplasm related pain (acute) (chronic) (principal); C16.0 Malignant neoplasm of cardia; R93.5 Abnormal findings on diagnostic imaging of other abdominal regions, including retroperitoneum; M54.9 Dorsalgia, unspecified; I10 Essential (primary) hypertension; Z93.1 Gastrostomy status; F17.200 Nicotine dependence, unspecified, uncomplicated; Z88.8 Allergy status to other drugs, medicaments and biological substances; Z79.899 Other long term (current) drug therapy; Z79.01 Long term (current) use of anticoagulants
CPT/HCPCS: 71046; 74177; 80047; 80076; 81001; 83690; 85025; 96361; 96374; 96375; 96376; 99284; J1170; J1885; J2405; Q9963; Q9967

== ENCOUNTER 2019-10-25 04:15 | Inpatient (IN) | payer OTHER ==
[~2019-10-25] VITALS: Ht 182.9 cm; Wt 66.7 kg
[~2019-10-25 04:15] MED LIST changes: +HYDR1LIQ PO
[2019-10-25] MEDS ORDERED: HYDROMORPHONE HCL 0.5 MG/ 0.5 ML SYRINGE (J1170 PER 1) As Ordered ONE (04:41)
[2019-10-25] MEDS ORDERED: ONDANSETRON 4MG/2ML VIAL As Ordered ONE (04:42)
[2019-10-25] MEDS: HYDROMORPHONE HCL 0.5 MG/ 0.5 ML SYRINGE (J1170 PER 1) IV PRN ×2 (04:45→06:29)
[2019-10-25] MEDS ORDERED: KETOROLAC 30 MG/ML 1ML VIAL As Ordered ONE (04:50)
[2019-10-25] MEDS ORDERED: KETOROLAC 30 MG/ML 1ML VIAL IV ONE (05:00)
[2019-10-25] MEDS ORDERED: ONDANSETRON 4MG/2ML VIAL IV ONE (05:00)
[2019-10-25] MEDS ORDERED: MOM 30ML SUSPENSION UDC PO PRN (06:00)
[2019-10-25] MEDS ORDERED: ACETAMINOPHEN TAB 650MG DOSE (2X325MG) PO PRN (06:00)
[2019-10-25 06:42] LABS: HEMATOCRIT 26.5 % (42.0-52.0); HEMOGLOBIN 8.2 g/dl (13.5-17.5); MEAN CORPUSCULAR HEMOGLOBIN 27.4 pg (27.0-33.0); MEAN CORPUSCULAR HGB CONC 30.9 g/dl (32.0-36.5); MEAN CORPUSCULAR VOLUME 88.6 fl (80.0-96.0); PLATELET COUNT, AUTOMATED 281 10^3/uL (150-450); RED BLOOD COUNT 2.99 10^6/uL (4.30-6.10); WHITE BLOOD COUNT 7.7 10^3/uL (4.0-10.0)
--- NOTE | 2019-10-25 06:57 | HPEPDOC ---
[facility] Medical History & Physical Date of Admission Oct 25, 2019 Date of Service: Oct 25, 2019 Attending Physician: OSCAR HILL MD History and Physical TIME OF SERVICE: 5:20 AM CHIEF COMPLAINT: Abdominal pain HISTORY OF PRESENT ILLNESS: This is a 53-year-old male who presents with complaints of more than 10 out of 10 in severity, aching, and unbearable mid, abdominal pain and back pain that improved to 4/10 after receiving Dilaudid and Toradol . He is chronically on fentanyl and morphine, for his pain which he feels are not helping. The pain is also associated with nausea and vomiting that has been going on "for a while". 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 History of nonobstructing left kidney stone Chronic Hypertension. Piloidal cyst ( per patient, this is been mistaken for rectal mass on CT scans in the past) Protein calorie malnutrition / failure to thrive SOCIAL HISTORY: Continues to smoke FAMILY HISTORY: His father had colon cancer and hypertension. One of his brothers was born with a single kidney, which failed unfortunately ended up with hepatitis as a result of blood transfusion ALLERGIES: Please see below. HOME MEDICATIONS: Please see below. PHYSICAL EXAMINATION: Vital Signs Date Time Temp Pulse Resp B/P (MAP) Pulse Ox O2 Delivery O2 Flow Rate FiO2 10/25/19 04:16 98.6 107 18 120/57 (78) 100 Room Air GEN: well-nourished / well developed/ NAD INTEGUMENT: not flushed/ not jaundice HEENT: NCAT CVS: RRR/NMRG/ no lower extremity edema LUNGS: able to speak full sentences without stopping to take a breath / no coughing / lungs are clear to auscultation bilaterally on room air ABDOMEN: Contour (flat) / soft & not tender with palpation MSK/EXTREMITIES: range of motion intact in all 4 extremities NEURO: CN 2-12 are grossly intact / speech is not dysarthric PSYCH: alert and oriented to person place and time/ able to understand and follow all commands LABORATORY DATA: IMAGING: CT abdomen and pelvis October 23 "IMPRESSION: Mild increase in size of pre-aortic tumor in the upper abdomen adjacent to the gastroesophageal junction. There is increased size of an adjacent left lobeliver mass. There is also a mild increase in the size of more inferior retroperitoneal adenopathy along the abdominal aorta. There is new obliteration and occlusion of the left portal vein causing altered perfusion in the left lobe of the liver. There is encasement and narrowing of the celiac artery and its branches. There is encasement of the renal arteries bilaterally with mild narrowing. No other new findings." Chest xray October 23 "There is no evidence of acute infiltrate. There is elevation of the left hemidiaphragm unchanged. The heart is not enlarged. Mediastinal silhouette is unchanged. There is a distal esophageal stent. There is a right central venous catheter with the tip in the superior vena cava. There are degenerative changes of the spine. There is no radiographic evidence of metastatic disease to the visualized osseous structures." MICROBIOLOGY: Please see below. ASSESSMENT: Mr. Fuller is a 68-year-old male with a history of stage III esophageal cancer, and HTN who is admitted for evaluation of abdominal pain. PLAN: 1. Abdominal pain possibly due to increasing size of esophageal and liver masses Plan: Admit to medical floor/the daytime team can consult hematology oncology and pain med during the day / per patient's request switch to Dilaudid and Toradol for pain control 2. Portal vein thrombosis eliquis failure ? Plan: f/u w hem/onc / c/w eliquis for now 3. Chronic HTN Plan: atenolol DVT PROPHYLAXIS: c/w eliquis DISPOSITION: home after more than 2 midnight's stay Home Medications Scheduled Apixaban (Eliquis) 5 Mg Tablet, 5 MG PO BID Atenolol (Atenolol) 25 Mg Tablet, 25 MG PO DAILY Granisetron (Sancuso) 3.1 Mg/24 Hr Patch.tdwk, 3.1 MG TD QWEEK SUNDAYS, APPLIED TO RIGHT ARM Lidocaine/Prilocaine (Lidocaine-Prilocaine Cream) 2.5%/2.5% Cream..g., 1 DOSE TOP ASDIRECTED APPLY BEFORE ACCESSING INFUSAPORT Morphine Sulfate (Morphine Sulfate Cr) 60 Mg Tablet.er, 60 MG PO DAILY Pantoprazole Sodium (Pantoprazole Sodium) 40 Mg Tablet.dr, 40 MG PO BID Sertraline Hcl (Sertraline HCl) 50 Mg Tablet, 50 MG PO DAILY [id number] Sucralfate (Sucralfate) 1 Gm/10 Ml Oral.susp, 10 ML PO QHS fentaNYL (fentaNYL) 50 Mcg Patch.td72, 50 MCG TD Q3D APPLIED TO RIGHT DELTOID Scheduled PRN Hydromorphone Hcl (Hydromorphone HCl) 1 Mg/1 Ml Liquid, 1 MG PO Q6HP PRN for PAIN Polyethylene Glycol 3350 (Miralax) 119 Gm Powder, 17 GM PO DAILY PRN for CONSTIPATION Sennosides/Docusate Sodium (Senna Plus Tablet) 1 Each Tablet, 1 TAB PO BID PRN for CONSTIPATION Allergies Coded Allergies: NSAIDS (Non-Steroidal Anti-Inflamma (Verified Adverse Reaction, Intermediate, States it will make his stomach bleed., 08/05/19) A-FIB/CHADSVASC A-FIB History Current/History of A-Fib/PAF?: No Current PO Anticoag Therapy: No OSCAR HILL MD Oct 25, 2019 06:57
[2019-10-25] MEDS ORDERED: SENOKOT S TAB PO PRN (07:00)
[2019-10-25] MEDS ORDERED: MIRALAX *UNIT DOSE* 17GM PACKET PO PRN (07:00)
[2019-10-25] MEDS ORDERED: KETOROLAC TROMETHAMINE 10 MG TAB PO PRN (07:00)
[2019-10-25] MEDS ORDERED: HYDROmorphone 2 MG TAB PO PRN (07:00)
[2019-10-25 07:06] LABS: BLOOD UREA NITROGEN 12 MG/DL (7-18); CALCIUM LEVEL 8.1 MG/DL (8.5-10.1); CARBON DIOXIDE LEVEL 28 MEQ/L (21-32); CHLORIDE LEVEL 107 MEQ/L (98-107); CREATININE FOR GFR 0.42 MG/DL (0.70-1.30); GLOMERULAR FILTRATION RATE > 60.0 (>56); GLUCOSE, FASTING 87 MG/DL (70-100); POTASSIUM SERUM 3.9 MEQ/L (3.5-5.1); SODIUM LEVEL 139 MEQ/L (136-145)
[2019-10-25 08:00] VITALS: BP 108/64
[2019-10-25] MEDS ORDERED: APIXABAN 5 MG TAB (ELIQUIS) PO SCH (09:00)
[2019-10-25] MEDS: atenoloL 25 MG TAB PO SCH (09:00)
[2019-10-25] MEDS: PANTOPRAZOLE 40MG TAB (PROTONIX) PO SCH ×2 (09:10→20:08)
[2019-10-25] MEDS: SERTRALINE HCL 50 MG TAB PO SCH (09:11)
[2019-10-25] MEDS: DOCUSATE SODIUM 100 MG CAP PO SCH ×2 (09:11→20:08)
[2019-10-25] MEDS ORDERED: fentaNYL 50 MCG/HR PATCH TOP SCH (12:00)
[2019-10-25] MEDS ORDERED: FENTANYL REMOVAL DOCUMENTATION MISC XX SCH (12:00)
[2019-10-25 13:02] LABS: INR 1.23; PROTHROMBIN TIME 15.2 SECONDS (11.8-14.0)
--- NOTE | 2019-10-25 13:02 | MEDONCTEEN ---
Date/Time of Encounter Date of Encounter: Oct 25, 2019 Time of Encounter: 13:00 Telephone Encounter Oncology Case discussed with Dr. Dunn Progression of disease noted New portal vein thrombosis noted Encasement of celiac axis noted c/w progression of pain Recommend palliative care/pain management consult Option on how to manage pain discussed with Dr. Dunn Prognosis remains poor ETLON SANTIZO MD Oct 25, 2019 13:02
[2019-10-25 13:03] LABS: PARTIAL THROMBOPLASTIN TIME 34.3 SECONDS (25.0-38.4)
[2019-10-25 14:00] VITALS: BP 95/55
--- NOTE | 2019-10-25 14:20 | CR ---
PHONE CONSULTATION DATE OF CONSULTATION: 10/25/2019 REFERRING PROVIDER: Hospitalist, Dr. Dunn CHIEF COMPLAINT: Abdominal pain. HISTORY OF PRESENT ILLNESS: This is a 53-year-old male who was admitted from the emergency room (ER) due to severe abdominal pain. History of esophageal stage III carcinoma with metastasis to the celiac artery and upper stomach diagnosed in June 2018. Has been on fentanyl patch 50 mcg every 72 hours and morphine extended release and short-acting morphine at home. I spoke with the patient over the phone, who agrees to do a telephone consult. States he has tried all medications that he is receiving at home, and nothing has touched his pain. He states that nothing works that I suggest by mouth. Discussed trial of intravenous (IV) Dilaudid, which the patient is somewhat receptive to. I spoke with Dr. Dunn and suggested that she follow Dilaudid protocol for nonmonitored area in an opioid-tolerant patient. Advised her to use 1.6 mg IV Dilaudid every 3 hours as needed for breakthrough pain. Advised to continue fentanyl patch 50 mcg every 72 hours. Consider palliative care referral versus hospice. Encouraged to call pain clinic for further suggestions should his condition change.
[2019-10-25] MEDS: HYDROmorphone HCL 2 MG/ML 1ML VIAL (J1170) IV PRN ×3 (14:38→21:59)
[2019-10-25] MEDS: ONDANSETRON 4 MG ORAL DISINTEGRATING TAB PO PRN (14:43)
[2019-10-25] MEDS ORDERED: FENT50DI5 TD (14:51)
--- NOTE | 2019-10-25 15:34 | IPNPDOC ---
Date Seen The patient was seen on 10/25/19. Progress Note SUBJECTIVE: The case was discussed in detail with the patient's oncologist (Dr. Olivia), flight service specialist (June Yu [phone]) and pain management provider who was consulted. Patient has overall poor prognosis, has been trialed on many oral medications, different doses of fentanyl patch. Some have been too strong for patient and others have been too weak according to patient. Today the patient states the oral medications are too weak but the fentanyl patch is too strong at times for him. Fentanyl patch was started at 25 mcg and dilaudid IV was started for breakthrough pain. The patient was due for restaging CT's today according to oncology and he reviewed the CTs done earlier in the emergency room. Despite being on Eliquis BID (unknown if the patient is truly compliant with this med post) a new portal vein thrombosis was seen along with encasement of celiac axis noted c/w progression disease. Pain is likely from this thrombosis and progression. Palliative care had been asked to be involved in his case prior to this admission for pain management, nausea, cachexia and symptom control. The patient himself has no acute complaints outside of his pain at this time. He denies chest pain, shortness of breath, nausea, vomiting, fevers or chills. OBJECTIVE: VITAL SIGNS: Please see below GEN: thin male, in no acute distress INTEGUMENT: intact, no rashes, lesions HEENT: Atraumatic, normocephalic. CVS: RRR/NMRG/ no lower extremity edema LUNGS: CTAB, no w/r/r CHEST: Port in right upper chest ABDOMEN: thin abdomen, Contour (flat) / soft & not tender with palpation MSK/EXTREMITIES: range of motion intact in all 4 extremities NEURO: CN 2-12 are grossly intact , no focal deficits PSYCH: mood depressed, flat affect IMAGING: CT abdomen and pelvis 10/24/19: Mild increase in size of pre-aortic tumor in the upper abdomen adjacent to the gastroesophageal junction. There is increased size of an adjacent left lobeliver mass. There is also a mild increase in the size of more inferior retroperitoneal adenopathy along the abdominal aorta. Th ere is new obliteration and occlusion of the left portal vein causing altered perfusion in the left lobe of the liver. There is encasement and narrowing of the celiac artery and its branches. There is encasement of the renal arteries bilaterally with mild narrowing. No other new findings." Chest xray : There is no evidence of acute infiltrate. There is elevation of the left hemidiaphragm unchanged. The heart is not enlarged. Mediastinal silhouette is unchanged. There is a distal esophageal stent. There is a right central venous catheter with the tip in the superior vena cava. There are degenerative changes of the spine. There is no radiographic evidence of metastatic disease to the visualized osseous structures." LABORATORY: Please see below CURRENT MEDICATIONS: Please see below ASSESSMENT: Mr. Fuller is a 68-year-old male admitted for further abdominal pain control, treatment of portal vein thrombosis. PLAN: 1. 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 Diagnosed 06/2018. CT today shows progression of disease with overall prognosis being poor. New portal vein thrombosis noted, encasement of celiac axi s. Patient has a palliative care provider in the community (June Yu) who has been speaking with the patient's almost daily since they have been in touch. Pain has been difficult to manage. At this time palliative care/pain management is what is recommended by oncology. Currently patient is on dilaudid IV PRN and fentanyl patch 25 mcg Q72 hrs (patient states 50 mcg is too much for him and makes him feel weak). 2. Portal vein thrombosis, new. This is, in addition to progression of disease, is likely cause of patient's severe pain. States to be compliant with Eliquis BID at home. Started on Enoxparin 60 mg SC BID. Pain management consulted. 3. Chronic HTN. Stable. Atenolol. 4. DVT px. Enoxaparin SC BID. DISPOSITION: Currently admitted under inpatient status. Plan is undetermined at this time. Oncology, pain management and palliative care know of patient's curr ent status and will be happy to speak at any time concerning patient. VS, I&O, 24H, Fishbone Vital Signs/I&O Vital Signs Date Time Temp Pulse Resp B/P (MAP) Pulse Ox O2 Delivery O2 Flow Rate FiO2 10/25/19 14:55 18 Room Air 10/25/19 14:00 98.0 74 95/55 (68) 100 Laboratory Data 24H LABS Laboratory Tests 2 10/25/19 06:30: Nucleated Red Blood Cells % (auto) 0.0 4/27/20 06:31: Anion Gap 4L, Glomerular Filtration Rate > 60.0, Calcium Level 8.1L 10/25/19 12:28: Prothrombin Time 15.2H, Prothromb Time International Ratio 1.23, Activated Partial Thromboplast Time 34.3 CBC/BMP Laboratory Tests 10/25/19 06:30 10/25/19 06:31 Nuris Dunn MD Oct 25, 2019 15:34
[2019-10-25] MEDS: FENTANYL REMOVAL DOCUMENTATION MISC XX SCH (15:51)
[2019-10-25] MEDS ORDERED: fentaNYL 25 MCG/HR PATCH TOP SCH (16:00)
[2019-10-25] MEDS: SUCRALFATE SUSP 1GM/10ML UD PO SCH (20:08)
[2019-10-25] MEDS: ENOXAPARIN 60MG/0.6ML SYRINGE (J1650 PER 10MG) SC SCH ×2 (20:08→20:47)
[2019-10-25 22:00] VITALS: BP 108/58
[2019-10-26] MEDS ORDERED: MORPHINE 2 MG/ML 1ML VIAL (J2270) IV ONE (00:15)
[2019-10-26] MEDS: HYDROmorphone HCL 2 MG/ML 1ML VIAL (J1170) IV PRN ×6 (01:13→21:15)
[2019-10-26] MEDS ORDERED: KETOROLAC 30 MG/ML 1ML VIAL IV ONE ×2 (04:30→20:00)
[2019-10-26] MEDS: FENTANYL REMOVAL DOCUMENTATION MISC XX SCH (05:20)
[2019-10-26 05:54] LABS: HEMATOCRIT 28.9 % (42.0-52.0); HEMOGLOBIN 8.6 g/dl (13.5-17.5); MEAN CORPUSCULAR HEMOGLOBIN 26.4 pg (27.0-33.0); MEAN CORPUSCULAR HGB CONC 29.8 g/dl (32.0-36.5); MEAN CORPUSCULAR VOLUME 88.7 fl (80.0-96.0); PLATELET COUNT, AUTOMATED 331 10^3/uL (150-450); RED BLOOD COUNT 3.26 10^6/uL (4.30-6.10)
[2019-10-26 06:00] VITALS: BP 110/67
[2019-10-26 06:14] LABS: BLOOD UREA NITROGEN 10 MG/DL (7-18); CALCIUM LEVEL 8.3 MG/DL (8.5-10.1); CARBON DIOXIDE LEVEL 30 MEQ/L (21-32); CHLORIDE LEVEL 106 MEQ/L (98-107); CREATININE FOR GFR 0.46 MG/DL (0.70-1.30); GLOMERULAR FILTRATION RATE > 60.0 (>56); GLUCOSE, FASTING 84 MG/DL (70-100); POTASSIUM SERUM 4.3 MEQ/L (3.5-5.1); SODIUM LEVEL 141 MEQ/L (136-145)
[2019-10-26] MEDS ORDERED: fentaNYL 25 MCG/HR PATCH TOP SCH ×2 (08:00)
[2019-10-26] MEDS: SERTRALINE HCL 50 MG TAB PO SCH (08:14)
[2019-10-26] MEDS: PANTOPRAZOLE 40MG TAB (PROTONIX) PO SCH ×2 (08:14→20:06)
[2019-10-26] MEDS: DOCUSATE SODIUM 100 MG CAP PO SCH ×2 (08:14→20:06)
[2019-10-26] MEDS: atenoloL 25 MG TAB PO SCH ×2 (08:19→08:52)
[2019-10-26] MEDS: ENOXAPARIN 60MG/0.6ML SYRINGE (J1650 PER 10MG) SC SCH ×2 (08:24→20:22)
--- NOTE | 2019-10-26 12:35 | IPNPDOC ---
Subjective Date Seen The patient was seen on 10/26/19. Subjective Chief Complaint/HPI Patient is still complaining of pain. His Duragesic patch was found on the bed side. Constitutional: Reports: Other Eyes: Denies: Pain, Vision change, Conjunctivae inflammation, Eyelid inflammation, Redness, Other ENT: Denies: Head Aches, Ear Pain, Dysphagia, Sinus Congestion, Post Nasal Drip, Sore Throat, Epistaxis, Other Symptoms Pulmonary: Denies: Dyspnea, Cough, Pleuritic Chest Pain, Other Symptoms Cardiovascular: Denies: Chest Pain, Palpitations, Orthopnea, Paroxysmal Noc. Dyspnea, Edema, Lt Headedness, Other Symptoms Gastrointestinal: Denies: Nausea, Vomiting, Abdominal Pain, Diarrhea, Constipation, Melena, Hematochezia, Other Symptoms Musculoskeletal: Denies: Neck Pain, Back Pain, Shoulder Pain, Arm Pain, Hand Pain, Leg Pain, Foot Pain, Joint Pain, Muscle Pain, Spasms, Other Symptoms Neurological: Denies: Weakness, Numbness, Incoordination, Change in speech, Confusion, Seizures, Other Symptoms Objective Physical Examination General Exam: Positive: Alert, Cooperative, Other (anxious) Neck Exam: Positive: Supple Chest Exam: Positive: Clear to auscultation, Normal air movement Abdomen Exam: Positive: Normal bowel sounds, Soft Extremity Exam: Positive: Normal pulses Skin Exam: Positive: Nl turgor and temperature Neuro Exam: Positive: Strength at 5/5 X4 ext, Cranial Nerves 3-12 NL Assessment /Plan Problems (1) Stage III adenocarcinoma of esophagus Status: Acute Problem Text: Stage III esophageal cancer with metastasis to the celiac artery and upper stomach. Diagnosed 06/2018. CT today shows progression of disease with overall prognosis being poor. New portal vein thrombosis noted, encasement of celiac axis. Patient has a palliative care provider in the community (June Yu) who has been speaking with the patient's almost daily since they have been in touch. Pain has been difficult to manage. At this time palliative care/pain management is what is recommended by oncology. Currently patient is on dilaudid IV PRN and fentanyl patch 25 mcg Q72 hrs (patient states 50 mcg is too much for him and makes him feel weak). Extensive discussion with patient regarding DNR/DNI and hospice care and he refused all . Continue pain management's recommendations off Duragesic and Dilaudid and will continue discussing patient regarding patient's pain management (2) Cancer related pain Status: Acute Problem Text: Pain management consult was called yesterday over the phone Recommended Dilaudid and Duragesic 50 g, but patient does not want 50 g he is only requesting 25 g daily. Patient also unwilling to consider hospice care or comfort care at this time Plan/VTE VTE Prophylaxis Ordered?: Yes VS, I&O, 24H, Fishbone Vital Signs/I&O Vital Signs Date Time Temp Pulse Resp B/P (MAP) Pulse Ox O2 Delivery O2 Flow Rate FiO2 10/26/19 11:02 18 10/26/19 08:52 86 104/64 10/26/19 06:00 97.4 99 10/25/19 14:55 Room Air I&O- Last 24 Hours up to 6 AM 10/26/19 05:59 Intake Total 720 ml Balance 720 ml Laboratory Data 24H LABS Laboratory Tests 2 10/26/19 05:06: Nucleated Red Blood Cells % (auto) 0.0, Anion Gap 5L, Glomerular Filtration Rate > 60.0, Calcium Level 8.3L CBC/BMP Laboratory Tests 10/26/19 05:06 WATSON VIVEROS MD Oct 26, 2019 12:35
[2019-10-26] MEDS: ONDANSETRON 4 MG ORAL DISINTEGRATING TAB PO PRN (13:27)
[2019-10-26 14:00] VITALS: BP 105/64
[2019-10-26] MEDS ORDERED: NALOXONE INJ 0.4MG/1ML VIAL (J2310 PER 1MG) IV PRN (18:15)
[2019-10-26] MEDS: SUCRALFATE SUSP 1GM/10ML UD PO SCH (20:06)
[2019-10-26 22:00] VITALS: BP 106/58
[2019-10-27] VITALS (15 sets, daily range): BP systolic 48–110; BP diastolic 30–60
[2019-10-27] MEDS: HYDROmorphone HCL 2 MG/ML 1ML VIAL (J1170) IV PRN ×4 (03:30→12:52)
[2019-10-27] MEDS: ONDANSETRON 4 MG ORAL DISINTEGRATING TAB PO PRN (07:53)
[2019-10-27] MEDS: DOCUSATE SODIUM 100 MG CAP PO SCH ×2 (08:20→20:28)
[2019-10-27] MEDS: atenoloL 25 MG TAB PO SCH (08:20)
[2019-10-27] MEDS: ENOXAPARIN 60MG/0.6ML SYRINGE (J1650 PER 10MG) SC SCH (08:20)
[2019-10-27] MEDS: PANTOPRAZOLE 40MG TAB (PROTONIX) PO SCH ×2 (08:20→20:28)
[2019-10-27] MEDS: SERTRALINE HCL 50 MG TAB PO SCH (08:20)
[2019-10-27] MEDS ORDERED: ELIQ5TAB PO (08:40)
[2019-10-27] MEDS ORDERED: fentaNYL 50 MCG/HR PATCH TOP SCH ×2 (09:30→14:00)
[2019-10-27] MEDS ORDERED: HYDR1LIQ PO (11:00)
[2019-10-27] MEDS ORDERED: FENT50DI5 TD (11:00)
[2019-10-27] MEDS ORDERED: MORP60TA PO (11:00)
--- NOTE | 2019-10-27 12:10 | CR.PDOC ---
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, retroperitoneal lymphadenopathy, GE junction area and aggressive celiac axis involvement with "new" portal vein thrombosis and uncontrolled pain HISTORY OF PRESENT ILLNESS: Patient's been doing actually poorly I met the patient for the first time last week Restaging scans were performed which shows progression of disease which I expected Restaging scan showed involvement celiac axis area which I expected Portal vein thrombosis is a new finding but I suspect that this is not a new problem CT abdomen and pelvis performed 826 revealed liver mass increase in size now 3.5 cm in diameter Is also increased retroperitoneal adenopathy in the periaortic region Progression of disease at the GE junction noted with thickening by the stent This encasement celiac artery and branches There is encasement of the renal arteries bilaterally There is no obliteration and occlusion with portal vein causing altered perfusion the left lobe of liver. This is not likely a new problem. Patient was not open to hospice discussion Patient not open to DNR/DNI Patient remains angry Prolonged discussion with Anna [phone] Viveros Pain management is involved in the case No easy solution here Patient had problems with pain management last admission The plan is is to handle his pain as an outpatient Patient will be seen in the office tomorrow ALLERGIES: Please see below. HOME MEDICATIONS: Please see below. DIAGNOSIS AND TREATMENT HISTORY: Per available notes, mainly taken from patient's history. 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 PD-L1 - CPS > 1, HER2 IHC2+ equivocal, FISH positive 2.0. Per patient was deemed Stage III disease ([id number]) - S/P carboplatin/Taxol with concurrent XRT x 5 weeks - dates unclear. 11/05/2018 - Robotic assisted diagnostic laparoscopy, esophageal mobilization. Intraoperative findings - tumor involved left dahlia, also involved right dahlia, bu lky LAD in the peritoneum and laterally to the left gastric chain. Frozen samples as follows - celiac axis suspicious for malignancy, right dahlia muscle fibers, left dahlia positive for adenocarcinoma. Further biopsies from celiac axis and left dahlia returned celiac axis positive for adenocarcinoma, left dahlia with margins clear of malignancy. At that point, decision was made to abort the procedure as the retroperitoneal LAD was encasing the celiac axis and not resectable. EGD with stent placed to treat dysphagia. - Per patient late 11/2018, UGIB with dark stool, required packed RBCs. Had EGD - details unclear. 02/05/2019 - Per patient started Keytruda. 03/23/2019 - Severe esophagitis with bleeding, placed on PPI. Keytruda then continued to 04/2019. 04/18/2019 - Esophagoscopy - significant food debris mid esophagus with mucosal oozing proximal to stent. It was felt stent removal could be problematic per prior notes. Continued to have intermittent nausea and vomiting; 05/26/2019 - saw GI at [facility] - repeat EGD - stent replaced, nausea and vomiting resolved. 07/13/2019 - Resumed Keytruda. Last treatment 08/04/2019. Not given for diarrhea per med onc notes at [facility]. Past Medical/Surgical History Hypertension. GERD. Microcalcifications noted on CTA chest 06/28/2019 - could be related to prior pancreatitis per radiology. Patient reports no prior known episodes of pancreatitis. Surgical history as above Family History: Father - prostate cancer in his 70s, bladder cancer in his 80s. No other history of malignancy or bloody dyscrasias in the family. Social History: Smoking - one PPD x 35 years, continues to smoke. Alcohol - Social use, denies any history of heavy use. Drugs - Denies any history of recreational drug use. Lives with REVIEW OF SYSTEMS: 15 point review of systems positive for Progressive abdominal pain. And failure to thrive Decreased appetite PHYSICAL EXAMINATION: VITAL SIGNS: Please see below. GENERAL APPEARANCE: Alert awake moderate distress. HEENT: No thrush. RESPIRATORY: Coarse but clear bilateral. CARDIOVASCULAR: Regular rate. ABDOMEN: Distention with fullness in the upper quadrant pain on palpation. EXTREMITIES: No significant edema. NEUROLOGICAL: Moving all extremities. PSYCHIATRIC: Remains angry. LABORATORY DATA: Please see below. ASSESSMENT/PLAN: Progressive GE junction adenocarcinoma with metastatic disease to liver with progression, retroperitoneal area with progression and celiac axis with progression Patient also found to have a portal vein thrombosis age-indeterminate with changes to liver perfusion Patient met with ongoing uncontrolled pain which is not a new problem Pain management his been working with the patient Discussed case with June Yu earlier this week Celiac axis block could be quite helpful here Plan No objection for discharge Continue fentanyl 50 g patch which patient's been on and has not had any problems with oversedation Continue with short acting morphine sulfate 15-30 mg every 3 hours as needed for breakthrough pain We will see the patient tomorrow in the office We'll discuss findings of scan with the patient tomorrow Ongoing goals of care will be discussed Will discuss hospice versus palliative chemotherapy Again recommend celiac axis block to help with pain. Interventional radiology telephone consult planned for next week We'll discuss DNR/DNI status which is recommended for this patient. The reason being is something catastrophic happens causing him to need a respirator or is Lowery restarted, is going to happen for reason we cannot fix and would be futile care Continue apixaban 5 mg twice a day. May discontinue 48-72 hours for celiac axis block if patient found to be a candidate Prognosis remains dismal Expected survival of less than one year at this point Trajectory of decline significant and suspect survival agree with six-month even with palliative chemotherapy 70 minutes total time care with more than 50% of the time counseling, discussion with nurse, attending, patient and Vital Signs/I&O Vital Signs Date Time Temp Pulse Resp B/P (MAP) Pulse Ox O2 Delivery O2 Flow Rate FiO2 10/27/19 09:58 16 10/27/19 08:20 81 110/58 10/27/19 06:00 98.5 96 10/26/19 14:00 Room Air I&O- Last 24 Hours up to 6 AM 10/27/19 06:00 Intake Total 1050 ml Output Total 1100 ml Balance -50 ml Allergies Coded Allergies: NSAIDS (Non-Steroidal Anti-Inflamma (Verified Adverse Reaction, Intermediate, States it will make his stomach bleed., 08/05/19) Home Medications Scheduled Apixaban (Eliquis) 5 Mg Tablet, 5 MG PO BID for 28 Days, #56 Atenolol (Atenolol) 25 Mg Tablet, 25 MG PO DAILY, (Reported) Granisetron (Sancuso) 3.1 Mg/24 Hr Patch.tdwk, 3.1 MG TD QWEEK, (Reported) SUNDAYS, APPLIED TO RIGHT ARM Lidocaine/Prilocaine (Lidocaine-Prilocaine Cream) 2.5%/2.5% Cream..g., 1 DOSE TOP ASDIRECTED, (Reported) APPLY BEFORE ACCESSING INFUSAPORT Morphine Sulfate (Morphine Sulfate Cr) 60 Mg Tablet.er, 60 MG PO DAILY, #10 Pantoprazole Sodium (Pantoprazole Sodium) 40 Mg Tablet.dr, 40 MG PO BID, (Reported) Sertraline Hcl (Sertraline HCl) 50 Mg Tablet, 50 MG PO DAILY, (Reported) [id number] Sucralfate (Sucralfate) 1 Gm/10 Ml Oral.susp, 10 ML PO QHS, (Reported) fentaNYL (fentaNYL) 50 Mcg Patch.td72, 50 MCG TD Q3D, #3 APPLIED TO RIGHT DELTOID Scheduled PRN Hydromorphone Hcl (Hydromorphone HCl) 1 Mg/1 Ml Liquid, 1 MG PO Q6HP PRN for PAIN for 10 Days, #40 Polyethylene Glycol 3350 (Miralax) 119 Gm Powder, 17 GM PO DAILY PRN for CONSTIPATION, (Reported) Sennosides/Docusate Sodium (Senna Plus Tablet) 1 Each Tablet, 1 TAB PO BID PRN for CONSTIPATION, (Reported) ELTON SANTIZO MD Oct 27, 2019 12:10
[2019-10-27] MEDS ORDERED: HYDROmorphone 2 MG TAB PO PRN (13:15)
[2019-10-27] MEDS: FENTANYL REMOVAL DOCUMENTATION MISC XX SCH (13:47)
[2019-10-27] MEDS ORDERED: NS 1,000 ML IV ONE ×2 (14:15→20:15)
--- NOTE | 2019-10-27 14:49 | IPNPDOC ---
Subjective Date Seen The patient was seen on 10/27/19. Subjective Chief Complaint/HPI After long and multiple discussion with patient, he finally decided to meet with the hospice team and it try increased dose of Duragesic patch and Dilaudid pills before he is discharged home tomorrow General: Reports: Other Symptoms (. Generalized body pain) Constitutional: Denies: Chills, Fever, Malaise, Night Sweats, Weakness, Fatigue, Weight Loss, Lethargy, Other Eyes: Denies: Pain, Vision change, Conjunctivae inflammation, Eyelid inflammation, Redness, Other Skin: Denies: Rash, Lesions, Jaundice, Bruising, Itching, Dry, Breakdown, Nail Changes, Other Pulmonary: Denies: Dyspnea, Cough, Pleuritic Chest Pain, Other Symptoms Cardiovascular: Denies: Chest Pain, Palpitations, Orthopnea, Paroxysmal Noc. Dyspnea, Edema, Lt Headedness, Other Symptoms Gastrointestinal: Denies: Nausea, Vomiting, Abdominal Pain, Diarrhea, Constipation, Melena, Hematochezia, Other Symptoms Hematologic: Denies: Bruising, Bleeding Excessively, Petecchia, Purpura, Enlarged Lymph Nodes, Other Hematologic Musculoskeletal: Denies: Neck Pain, Back Pain, Shoulder Pain, Arm Pain, Hand Pain, Leg Pain, Foot Pain, Joint Pain, Muscle Pain, Spasms, Other Symptoms Neurological: Denies: Weakness, Numbness, Incoordination, Change in speech, Confusion, Seizures, Other Symptoms Psych: Denies: Mood Normal, Anxiety, Depression, Memory Issues, Thoughts of Self Harm, Anger, Thoughts of Harming Other, Other Psych Objective Physical Examination General Exam: Positive: Alert, Cooperative, Other (anxious) Neck Exam: Positive: Supple Chest Exam: Positive: Clear to auscultation, Normal air movement Abdomen Exam: Positive: Normal bowel sounds, Soft Extremity Exam: Positive: Normal pulses Skin Exam: Positive: Nl turgor and temperature Neuro Exam: Positive: Strength at 5/5 X4 ext, Cranial Nerves 3-12 NL Assessment /Plan Problems (1) Stage III adenocarcinoma of esophagus Status: Acute Problem Text: 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 Diagnosed 06/2018. CT today shows progression of disease with overall prognosis being poor. New portal vein thrombosis noted, encasement of celiac axis. Patient has a palliative care provider in the community (June Yu) who has been speaking with the patient's almost daily since they have been in touch. Pain has been difficult to manage. At this time palliative care/pain management is what is recommended by [facility]aco patient increased to 50 g every 72 hours and Dilaudid tablet 1 mg and 2 mg when necessary for mild or moderate to severe pain Patient was back and forth with his decision regarding future management. Finally he decided to continue pain management and seek hospice evaluation. Patient was seen by oncology as well and a grade as an outpatient treatment and workup secondary to patient's poor and dismal prognosis Continue pain management's recommendations off Duragesic and Dilaudid and will continue discussing patient regarding patient's pain management Possible discharge in a.m. (2) Cancer related pain Status: Acute Problem Text: Pain management consult was called yesterday over the phone Duragesic is increased to 50 g every 72 hours Also started on by mouth Dilaudid for pain management Patient is a home hospice, hopefully, once he meets hospice. He will be discharged home Plan/VTE VTE Prophylaxis Ordered?: Yes VS, I&O, 24H, Fishbone Vital Signs/I&O Vital Signs Date Time Temp Pulse Resp B/P (MAP) Pulse Ox O2 Delivery O2 Flow Rate FiO2 10/27/19 14:14 16 10/27/19 14:12 97.9 96 88/58 (68) 100 10/26/19 14:00 Room Air I&O- Last 24 Hours up to 6 AM 10/27/19 06:00 Intake Total 1050 ml Output Total 1100 ml Balance -50 ml WATSON VIVEROS MD Oct 27, 2019 14:49
[2019-10-27] MEDS ORDERED: ANALGESIC BALM CRM 120 GM TOP PRN (15:15)
[2019-10-27] MEDS: NS 1,000 ML IV SCH ×2 (18:43→21:16)
[2019-10-27] MEDS: APIXABAN 5 MG TAB (ELIQUIS) PO SCH (20:28)
[2019-10-27] MEDS: SUCRALFATE SUSP 1GM/10ML UD PO SCH (21:15)
[2019-10-27] MEDS ORDERED: KETOROLAC 30 MG/ML 1ML VIAL IV PRN (23:15)
[2019-10-27] MEDS ORDERED: MORPHINE 10MG/0.5ML ORAL CONCENTRATE SOLUTION U/D SL PRN (23:45)
[2019-10-27] MEDS ORDERED: LORazepam 1 MG TAB SL PRN (23:45)
[2019-10-27] MEDS ORDERED: BISACODYL 10 MG SUPP PR PRN (23:45)
[2019-10-27] MEDS ORDERED: SCOPOLAMINE 1MG TRANSDERMAL PATCH TOP PRN (23:45)
[2019-10-27] MEDS ORDERED: KETOROLAC 30 MG/ML 1ML VIAL IV ONE (23:45)
[2019-10-28] MEDS ORDERED: fentaNYL 25 MCG/HR PATCH TOP SCH
[2019-10-28] MEDS: HYDROmorphone 2 MG TAB PO PRN ×2 (00:41→07:26)
[2019-10-28] MEDS: FENTANYL REMOVAL DOCUMENTATION MISC XX SCH (04:07)
[2019-10-28] MEDS: NS 1,000 ML IV SCH (04:27)
[2019-10-28] MEDS: DOCUSATE SODIUM 100 MG CAP PO SCH (09:40)
[2019-10-28] MEDS: APIXABAN 5 MG TAB (ELIQUIS) PO SCH (09:41)
[2019-10-28] MEDS: PANTOPRAZOLE 40MG TAB (PROTONIX) PO SCH (09:41)
[2019-10-28] MEDS ORDERED: HYDROmorphone 2 MG TAB PO PRN ×2 (10:15)
--- NOTE | 2019-10-28 10:43 | IPNPDOC ---
Subjective Date Seen The patient was seen on 10/28/19. 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 Dyspnea, Edema, Lt Headedness, Other Symptoms Gastrointestinal: Denies: Nausea, Vomiting, Abdominal Pain, Diarrhea, Constipation, Melena, Hematochezia, Other Symptoms Musculoskeletal: Denies: Neck Pain, Back Pain, Shoulder Pain, Arm Pain, Hand Pain, Leg Pain, Foot Pain, Joint Pain, Muscle Pain, Spasms, Other Symptoms Neurological: Denies: Weakness, Numbness, Incoordination, Change in speech, Confusion, Seizures, Other Symptoms Objective Physical Examination General Exam: Positive: Alert, Cooperative Neck Exam: Positive: Supple Chest Exam: Positive: Clear to auscultation, Normal air movement Abdomen Exam: Positive: Normal bowel sounds, Soft Extremity Exam: Positive: Normal pulses Skin Exam: Positive: Nl turgor and temperature Neuro Exam: Positive: Strength at 5/5 X4 ext, Cranial Nerves 3-12 NL Assessment /Plan Problems (1) Stage III adenocarcinoma of esophagus Status: Acute Problem Text: Patient has a stage III esophageal cancer with metastases to celiac artery and in the stomach Patient has a very poor prognosis and he was getting a lot of side effects with pain meds without getting any relief. Finally. He signed the comfort measures only. Last night after his visited him, now he can be provided with a maximum amount of pain management and improve his quality of life, so he can spend his time with his family and not be in discomfort Discussed with social work will try to arrange home hospice and discharge patient home on hospice care Hospice consultation is pending. . (2) Cancer related pain Status: Acute Problem Text: As above Plan/VTE VTE Prophylaxis Ordered?: Yes VS, I&O, 24H, Fishbone Vital Signs/I&O Vital Signs Date Time Temp Pulse Resp B/P (MAP) Pulse Ox O2 Delivery O2 Flow Rate FiO2 10/28/19 07:56 16 10/27/19 23:19 80/46 (57) 10/27/19 22:00 98.8 95 99 10/26/19 14:00 Room Air I&O- Last 24 Hours up to 6 AM 10/28/19 06:00 Intake Total 1610 ml Output Total 0 ml Balance 1610 ml WATSON VIVEROS MD Oct 28, 2019 10:43
[2019-10-28] MEDS: ONDANSETRON 4 MG ORAL DISINTEGRATING TAB PO PRN (12:40)
[2019-10-28] MEDS ORDERED: ATIV1TAB7 SL (12:56)
[2019-10-28] MEDS ORDERED: SCOP1PAT2 TOP (12:56)
[2019-10-28] MEDS ORDERED: MORP20SO3 PO (12:56)
[2019-10-28] MEDS ORDERED: DURA25DI3 TOP (12:56)
[2019-10-28] MEDS ORDERED: DILA2TAB6 PO (12:56)
[2019-10-28] MEDS ORDERED: LORA0.5T5 PO (12:56)
[2019-10-28] MEDS ORDERED: HYOS125TA PO (12:56)
[2019-10-28] MEDS ORDERED: ONDA4TAB6 PO (12:56)
--- NOTE | 2019-10-28 13:01 | DS.PDOC ---
Discharge Summary General Date of Admission Oct 25, 2019 at 05:59 Date of Discharge 10/28/19 Discharge Summary PROCEDURES PERFORMED DURING STAY: None. ADMITTING DIAGNOSES: 1. Intractable pain. DISCHARGE DIAGNOSES: 1. Intractable pain, esophageal cancer. COMPLICATIONS/CHIEF COMPLAINT: Abdominal Pain. HISTORY OF PRESENT ILLNESS: This is a 53-year-old male who presents with complaints of more than 10 out of 10 in severity, aching, and unbearable mid, abdominal pain and back pain that improved to 4/10 after receiving Dilaudid and Toradol . He is chronically on fentanyl and morphine, for his pain which he feels are not helping. The pain is also associated with nausea and vomiting that has been going on "for a while". . HOSPITAL COURSE: Patient has a stage III esophageal cancer with metastases to celiac artery and in the stomach. Initially patient was started on pain medication and was seen by oncology Patient has a very poor prognosis and he was getting a lot of side effects with pain meds without getting any relief. Finally. He signed the comfort measures only. Last night after his visited him, now he can be provided with a maximum amount of pain management and improve his quality of life, so he can spend his time with his family and not be in discomfort Today. Discussed with social media marketing manager home hospice was arranged. Patient was seen by hospice group for consultation and accepted and he'll be discharged home on hospice care for better quality of life. is at the bedside . DISCHARGE MEDICATIONS: Please see below. ALLERGIES: Please see below. PHYSICAL EXAMINATION ON DISCHARGE: VITAL SIGNS: Please see below. GENERAL: Normal HEENT: Yaa extraocular muscles intact NECK: Supple CARDIOVASCULAR EXAMINATION: S1, S2, regular RESPIRATORY EXAMINATION: Clear to A&P ABDOMINAL EXAMINATION: Generalized positive tenderness all over the abdomen EXTREMITIES: No clubbing, cyanosis, edema SKIN: Normal NEUROLOGICAL EXAMINATION: . No focal motor sensory deficit PSYCHIATRIC EXAMINATION: Normal LABORATORY DATA: Please see below. IMAGING: Not applicable PROGNOSIS: Poor ACTIVITY: As tolerated. DIET: As tolerated DISCHARGE PLAN: Discharged home with hospice DISPOSITION: Home with hospice DISCHARGE INSTRUCTIONS: 1. Follow with hospice for further instructions. ITEMS TO FOLLOWUP ON ON OUTPATIENT: 1. As above. DISCHARGE CONDITION: Stable. TIME SPENT ON DISCHARGE: 42 minutes. Vital Signs/I&Os Vital Signs Date Time Temp Pulse Resp B/P (MAP) Pulse Ox O2 Delivery O2 Flow Rate FiO2 10/28/19 07:56 16 10/27/19 23:19 80/46 (57) 10/27/19 22:00 98.8 95 99 10/26/19 14:00 Room Air I&O- Last 24 Hours up to 6 AM 10/28/19 06:00 Intake Total 1610 ml Output Total 0 ml Balance 1610 ml Discharge Medications Scheduled Apixaban (Eliquis) 5 Mg Tablet, 5 MG PO BID Atenolol (Atenolol) 25 Mg Tablet, 25 MG PO DAILY, (Reported) Fentanyl (Duragesic) 25 Mcg Patch.td72, 25 MCG TOP Q72H Granisetron (Sancuso) 3.1 Mg/24 Hr Patch.tdwk, 3.1 MG TD QWEEK, (Reported) SUNDAYS, APPLIED TO RIGHT ARM Lidocaine/Prilocaine (Lidocaine-Prilocaine Cream) 2.5%/2.5% Cream..g., 1 DOSE TOP ASDIRECTED, (Reported) APPLY BEFORE ACCESSING INFUSAPORT Pantoprazole Sodium (Pantoprazole Sodium) 40 Mg Tablet.dr, 40 MG PO BID, ( Reported) Sertraline Hcl (Sertraline HCl) 50 Mg Tablet, 50 MG PO DAILY, (Reported) [id number] Sucralfate (Sucralfate) 1 Gm/10 Ml Oral.susp, 10 ML PO QHS, (Reported) Scheduled PRN Hydromorphone HCl (Dilaudid) 2 Mg Tablet, 1 MG PO Q4HP PRN for MODERATE/SEVERE PAIN (PS 5-10) Hydromorphone HCl (Dilaudid) 2 Mg Tablet, 0.5 MG PO Q4HP PRN for PAIN LEVEL 1-4 Hyoscyamine Sulfate (Hyoscyamine Sulfate) 0.125 Mg Tab.subl, 0.125 MG PO Q4HP PRN for TERMINAL SECRETIONS Use sublingually if unable to swallow Lorazepam (Lorazepam) 0.5 Mg Tablet, 0.5 MG PO Q4HP PRN for ANXIETY/AGITATION Use sublingually if unable to swallow Morphine Sulfate (Morphine Sulfate) 100 Mg/5 Ml Solution, 0.25-1 ML PO Q2H PRN for PAIN OR DYSPNEA Use sublingually if unable to swallow Ondansetron (Ondansetron Odt) 4 Mg Tab.rapdis, 4 MG PO Q6HP PRN for NAUSEA OR VOMITING Polyethylene Glycol 3350 (Miralax) 119 Gm Powder, 17 GM PO DAILY PRN for CONSTIPATION, (Reported) Scopolamine (Transderm-Scop) 1 Each Patch.td.3, 1 MG TOP Q3DP PRN for EXCESSIVE SECRETIONS Sennosides/Docusate Sodium (Senna Plus Tablet) 1 Each Tablet, 1 TAB PO BID PRN for CONSTIPATION, (Reported) Allergies Coded Allergies: NSAIDS (Non-Steroidal Anti-Inflamma (Verified Adverse Reaction, Intermediate, States it will make his stomach bleed., 08/05/19) WATSON VIVEROS MD Oct 28, 2019 13:01
[2019-10-29] MEDS ORDERED: FENTANYL REMOVAL DOCUMENTATION MISC XX SCH (08:00)
--- NOTE | 2019-10-29 12:47 | MEDONCTEEN ---
Date/Time of Encounter Date of Encounter: October 29, 2019 Time of Encounter: 12:45 Telephone Encounter Oncology Telephone discussion with patient and Patient is currently on hospice mainly to help with pain management I feel the [place] here would be evaluation for celiac axis block Patient may come off apixaban for that If this can be performed, I suspect we will have much better management of his pain. Patient understands hospice is voluntary Patient is currently eligible for palliative chemotherapy if he wishes to pursue that route. We must have better pain control before considering any palliative chemotherapy. Consideration for treatment will depend on performance status and patient preference at that time Patient may elect to stay on hospice which is appropriate if he so chooses He understands he has not "burned any bridges" at the present time. We'll touch base with him next week or 2 to see our progress is going regarding pain management ELTON SANTIZO MD October 29, 2019 12:47
== END 2019-10-28 13:40 | disposition home health service (06) | DRG 947 ==
LOC: M ED 04:15 → M ED INP 05:59 → ENRESERV 07:00 → M MSPAV 07:57
PROVIDERS: ADMIT Internal Medicine; ATTEND Internal Medicine
DX: G89.3 Neoplasm related pain (acute) (chronic) (principal); I81 Portal vein thrombosis; C15.9 Malignant neoplasm of esophagus, unspecified; C78.89 Secondary malignant neoplasm of other digestive organs; C78.7 Secondary malignant neoplasm of liver and intrahepatic bile duct; Z79.899 Other long term (current) drug therapy; Z88.6 Allergy status to analgesic agent; I10 Essential (primary) hypertension; F17.200 Nicotine dependence, unspecified, uncomplicated; R10.9 Unspecified abdominal pain